=== PATIENT | male | born 1970 | race African-American/Black ===

== ENCOUNTER 2020-09-07 14:00 | Outpatient (RCR) | payer OTHER, SELFPAY ==
--- NOTE | 2020-07-27 08:24 | MHC.PT.EP ---
[facility] [place] Office [place] Office [place] Office [address] Fabiola Winkler [address] [phone] F: [phone] F: [phone] F: [phone] F: [phone] Physical Therapy Plan of Care Date of Evaluation: 07/26/20 Date of Surgery: None Diagnosis: Low back pain Assessment: Patient is a 49 year old R handed male who presents with s/s consistent with low back pain. This has been a chronic issue for him with it worsening from time to time. MRI confirms significant pathology a few years back. He works with daily job demands including. Patient past medical history . Current impairments include pain, ROM, strength, safety, independence, activity tolerance and functional mobility. Functional limitations include decreased ability to walk, stand, transfer, negotiate stairs, and perform weight bearing activities.. Patient is motivated with good rehab potential. Skilled PT will address impairments and functional limitations in order to achieve goals. Frequency and Duration: The patient will be seen 2x/week for 6 weeks Short Term Goals: I with HEP - 2 weeks 90/90 lacking 35 b/l - 3 weeks Improve lumbar rotation with gait, AROM rotation 75% b/l - 3 weeks Group Home Goals: oswestry 20% or less - 5 weeks reduced TTP/tissue tightness in lumbar spine - 4 weeks Able to demo proper squat, light mechanics - 6 weeks Treatment Plan: Modalities to reduce pain, spasms and effusion. Manual therapy to restore motion and function. Therapeutic exercise to improve strength and flexibility. Neuromuscular re-education for posture and balance. Therapeutic activities to return to functional activities of daily living. Electronically signed by: Usama Boland, PT Please sign and return to therapist. Thank you for your referral.
--- NOTE | 2020-10-23 13:29 | MHC.PT.DC ---
[facility] [place] Office [place] Office [place] Office [address] Fabiola Winkler 140 [facility] [phone] F: [phone] F: [phone] F: [phone] F: [phone] Physical Therapy Discharge Report Diagnosis: Low back pain Date of Surgery: None Date of Evaluation: 07/26/20 Date of Discharge: 09/11/20 Treatments to Date: 8 Cancellations to Date: No Shows to Date: Discharge Status: Independent with HEP Discharge Summary: Pt progressed well over the course of skilled PT making progress on impairments and functional limitations resulting in an improved quality of life. Pt is I with HEP and appropriate to d/c to HEP at this time. Electronically signed by: Usama Boland, PT Please sign and return to therapist. Thank you for your referral.
== END 2020-10-23 13:59 | disposition home or self-care (01) ==
LOC: HO.PTCHIC 14:00
PROVIDERS: PCP Nurse Practitioner Family; Visit Provider Nurse Practitioner Family
DX: M54.16 Radiculopathy, lumbar region (principal); G89.29 Other chronic pain
CPT/HCPCS: 97014; 97110; 97112; 97140; 97162

== ENCOUNTER 2020-10-09 16:29 | Outpatient (REF) | payer OTHER, SELFPAY ==
--- NOTE | ~2020-10-09 | MR_ITS ---
EXAMINATION: MR LUMBAR SPINE WITHOUT CONTRAST CLINICAL INFORMATION: Left radiculopathy with bilateral toe numbness. COMPARISON: Lumbar spine x-ray 06/18/2014 TECHNIQUE: MRI of the lumbar spine was obtained using routine sequences without contrast. FINDINGS: VERTEBRAL BODIES AND PARASPINAL STRUCTURES: The marrow signal is homogeneous. No endplate changes seen. The vertebral heights and alignment are normal. Mild disc desiccation changes are seen at the L2-L3, L3-L4 and L4-L5 disc levels. CONUS MEDULLARIS AND CAUDA EQUINA: Conus medullaris terminates at T12 with a tiny fatty filum visualized similar to previous study. SPINAL LEVELS: T12-L1: No evidence of disc bulge, herniation or spinal stenosis. The spinal canal is capacious. L1-L2: Minimal loss of disc height without disc desiccation change seen. The spinal canal is capacious without any underlying disc bulge or herniation. The neural foramina are patent. At L2-L3 disc level, the left paracentral disc protrusion indenting the left ventral thecal sac, similar to previous study. No central canal stenosis seen. The neural foramina are patent bilaterally. At L3-L4 disc level, there is central annular degeneration with central and right paracentral disc protrusion without spinal canal stenosis. The neural foramina are patent bilaterally. At L4-L5 disc level, there is mild disc bulge flattening the ventral thecal sac but without spinal canal stenosis. Previously noted right paracentral disc protrusion has improved. The mass effect on the right L5 nerve root has improved, as well. Moderate bilateral facet joint hypertrophy is noted without neural foraminal narrowing. At L5-S1 disc level, there is no disc bulge, herniation or spinal canal stenosis. There is mild facet joint hypertrophy with mild lateral recess narrowing bilaterally. The neural foramina appear patent. MR/MR lumbar spine wo con IMPRESSION: Left paracentral disc herniation at L2-L3 disc level is stable. Central annular degeneration with central and right paracentral disc protrusion at L3-L4 disc level is visualized again and appears more prominent than the previous study with mild flattening of ventral thecal sac. Right lateral disc protrusion at L4-L5 disc level encroaching the right L5 nerve root shows minimal improvement. Bilateral facet joint hypertrophy L5-S1 disc level with bilateral lateral recess narrowing L5-S1 disc levels, stable.
== END 2020-10-09 16:30 | disposition home or self-care (01) ==
LOC: HO.MRI 16:29
PROVIDERS: Visit Provider Nurse Practitioner Family
DX: M54.16 Radiculopathy, lumbar region (principal); G89.29 Other chronic pain
CPT/HCPCS: 72148

== ENCOUNTER 2020-11-09 13:10 | Outpatient (REF) | payer OTHER, SELFPAY ==
[2020-11-09 14:44] LABS: Alanine Aminotransferase 22 U/L (0-40); Albumin Level 4.1 g/dL (3.5-5.0); Alkaline Phosphatase 44 U/L (39-117); Anion Gap 11 (12-20); Aspartate Amino Transferase 17 U/L (5-37); Bilirubin Total 1.5 mg/dL (0.0-1.0); Blood Urea Nitrogen 14 mg/dL (9-16); C Reactive Protein 0.07 mg/dL (< or = 0.50); Calcium 9.1 mg/dL (8.4-10.2); Carbon Dioxide 32 mmol/L (22-29); Chloride 104 mmol/L (96-108); Cholesterol 139 mg/dL; Estimated Glomerular Filt Rate 53; Glucose Fasting 87 mg/dL (60-99); HDL Cholesterol 31 mg/dL; LDL Cholesterol Calculated 65 mg/dl; Potassium 4.5 mmol/L (3.3-5.1); Sodium 142 mmol/L (135-145); Total Protein 7.2 g/dL (6.5-8.0); Triglycerides 218 mg/dL; Uric Acid 9.5 mg/dL (3.4-7.0)
[2020-11-09 14:55] LABS: Erythrocyte Sedimentation Rate 2 MM/HR (0-15)
[2020-11-09 15:05] LABS: TSH reflex Free T4 1.54 uIU/mL (0.32-4.0)
== END 2020-11-09 13:11 | disposition home or self-care (01) ==
LOC: HO.HMGCLDS 13:10
PROVIDERS: PCP Nurse Practitioner Family; Visit Provider Nurse Practitioner Family
DX: Z00.00 Encounter for general adult medical examination without abnormal findings (principal); M79.89 Other specified soft tissue disorders
CPT/HCPCS: 36415; 80053; 80061; 84443; 84550; 85652; 86140

== ENCOUNTER → 2021-03-30 13:12 | Outpatient (BNVA) | payer OTHER, SELFPAY | PROVIDERS: PCP Nurse Practitioner Family; Visit Provider Urology ==

== ENCOUNTER 2021-05-17 15:13 | Emergency (ER) | payer OTHER, SELFPAY ==
--- NOTE | ~2021-05-17 | XR_ITS ---
EXAMINATION: XR CHEST CLINICAL INFORMATION: Chest pain COMPARISON: None TECHNIQUE: Frontal view of the chest was obtained. FINDINGS: No significant abnormality is noted involving the heart, lungs, mediastinum, bony thorax or soft tissues. XR/XR chest 1V IMPRESSION: Unremarkable examination.
--- NOTE | 2021-05-17 15:18 | ECG_ITS ---
Test Reason : CHEST PAIN Blood Pressure : / mmHG Vent. Rate : 083 BPM Atrial Rate : 083 BPM P-R Int : 142 ms QRS Dur : 078 ms QT Int : 362 ms P-R-T Axes : 053 016 038 degrees QTc Int : 425 ms Normal sinus rhythm Early repolarization Normal ECG No previous ECGs available Referred By: Generic ED Physician Electronically Signed By:CASSIDY DOMINGUEZ MD
[2021-05-17 15:32] LABS: MANUAL DIFF FLAG NO
[2021-05-17 15:35] LABS: Basophils Percent Auto 0.4 % (0-2); Eosinophils Absolute Auto 0.1 X10*3/uL (0.0-0.4); Eosinophils Percent Auto 1.3 % (0-4); Hematocrit 46.7 % (42-52); Imm Gran Abs Auto 0.01 X10*3/uL (0.00-0.03); Imm Gran Pct Auto 0.2 % (0.0-0.4); Lymphocytes Absolute Auto 2.3 X10*3/uL (1.2-4.9); Lymphocytes Percent Auto 49.2 % (20-40); Mean Corpuscular HGB Conc 34.3 g/dl (31.0-36.0); Mean Corpuscular Hemoglobin 32.1 pg (27.0-33.0); Mean Corpuscular Volume 93.6 fL (80-98); Mean Platelet Volume 9.7 fL (9.4-12.4); Monocytes Absolute Auto 0.6 X10*3/uL (0.1-1.2); Monocytes Percent Auto 12.7 % (2-11); Neutrophils Absolute Auto 1.7 X10*3/uL (2.0-8.3); Neutrophils Percent Auto 36.2 % (45-73); Platelet Count 229 X10*3/uL (160-400); Red Blood Count 4.99 X10*6/uL (4.60-5.80); Red Cell Distribution Width 11.4 % (11.0-16.0); White Blood Count 4.7 X10*3/uL (4.8-10.8)
[2021-05-17 15:56] LABS: Alanine Aminotransferase 23 U/L (0-40); Albumin Level 4.3 g/dL (3.5-5.0); Alkaline Phosphatase 42 U/L (39-117); Anion Gap 14 (12-20); Aspartate Amino Transferase 20 U/L (5-37); Bilirubin Total 1.3 mg/dL (0.0-1.0); Blood Urea Nitrogen 18 mg/dL (9-16); Calcium 9.8 mg/dL (8.4-10.2); Carbon Dioxide 26 mmol/L (22-29); Chloride 104 mmol/L (96-108); Estimated Glomerular Filt Rate 53; Glucose Random 83 mg/dL (60-115); Potassium 4.2 mmol/L (3.3-5.1); Sodium 140 mmol/L (135-145); Total Protein 7.5 g/dL (6.5-8.0); Troponin-I High Sensitivity < 3.5 ng/L (<3.5-35.0)
[2021-05-17 16:05] VITALS: BP 134/102; PULSE 80; RESP 18; TEMP 37.1; O2SAT 100; BMI 24.7
[2021-05-17 16:39] LABS: Appearance Urine HAZY; Color Urine YELLOW; Glucose Urine UA NEG (NEG); Leukocyte Esterase Urine NEG (NEG); Nitrite Urine NEG (NEG); Specific Gravity - Urine 1.025 (1.005-1.025); Urine Blood NEG (NEG); Urine Ketones NEG (NEG); Urine Protein NEG (NEG-TRACE)
[2021-05-17 21:04] VITALS: BP 142/100; PULSE 76; RESP 10; O2SAT 98
--- NOTE | 2021-05-17 21:16 | ED.GENADULT ---
HPI - General Adult General Chief complaint: General Medical Stated complaint: cp Time Seen by Provider: 05/17/21 20:50 Related Data Previous Rx's Medication Instructions Recorded tizanidine 4 mg tablet 4 mg PO BEDTIME 30 Days #30 tab 09/13/20 butenafine 1 % topical cream 1 appl TOPICAL BID 30 Days #30 g 10/03/20 (Lotrimin Ultra) famotidine 20 mg tablet 20 mg PO BEDTIME 30 Days #30 tab 11/07/20 colchicine 0.6 mg tablet 0.6 mg PO .COMPLEX 5 Days #15 tab 12/11/20 hydrochlorothiazide 25 mg tablet 25 mg PO DAILY #30 tab 04/03/21 acetaminophen 325 mg capsule 650 mg PO Q4H PRN #30 cap 05/17/21 cyclobenzaprine 10 mg tablet 10 mg PO TID PRN #20 tab 05/17/21 Allergies Allergy/AdvReac Type Severity Reaction Status Date / Time No Known Allergies Allergy Verified 05/17/21 16:05 [No Known Allergies*] [facility] Past Medical History Medical History Chronic radicular pain of lower back Dyslipidemia GERD (gastroesophageal reflux disease) HTN (hypertension) Leukopenia Surgical History H/O left inguinal hernia repair Family History Family History Father No problems noted. Mother No problems noted. Brother No problems noted. Sister No problems noted. Sister No problems noted. Son No problems noted. Daughter No problems noted. Social History Social History Alcohol intake: current Alcohol intake frequency: holidays/special occasions only Use of substances other than those prescribed or required for medical reasons: No Advance Directives: No Physical Exam Vital Signs: Vital Signs: Last Vital Signs Temp 98.7 F 05/17/21 16:05 Pulse 76 05/17/21 21:04 Resp 10 L 05/17/21 21:04 BP 142/100 H 05/17/21 21:04 Pulse Ox 98 05/17/21 21:04 Body Mass Index 24.7 Medical Decision Making Lab Data Result diagrams: 05/17/21 15:25 05/17/21 15:25 Labs: Lab Results 05/17/21 05/17/21 05/17/21 Range/Units 15:25 15:25 15:25 WBC 4.7 L (4.8-10.8) X10*3/uL RBC 4.99 (4.60-5.80) X10*6/uL Hgb 16.0 (14.0-18.0) g/dl Hct 46.7 (42-52) % MCV 93.6 (80-98) fL MCH 32.1 (27.0-33.0) pg MCHC 34.3 (31.0-36.0) g/dl RDW 11.4 (11.0-16.0) % Plt Count 229 (160-400) X10*3/uL MPV 9.7 (9.4-12.4) fL Immature Gran % (Auto) 0.2 (0.0-0.4) % Neut % (Auto) 36.2 L (45-73) % Lymph % (Auto) 49.2 H (20-40) % [place] % (Auto) 12.7 H (2-11) % Eos % (Auto) 1.3 (0-4) % Baso % (Auto) 0.4 (0-2) % Lymph # (Auto) 2.3 (1.2-4.9) X10*3/uL [place] # (Auto) 0.6 (0.1-1.2) X10*3/uL Eos # (Auto) 0.1 (0.0-0.4) X10*3/uL Baso # (Auto) 0.0 (0.0-0.2) X10*3/uL Abs Immat Gran (auto) 0.01 (0.00-0.03) X10*3/uL Absolute Neuts (auto) 1.7 L (2.0-8.3) X10*3/uL Absolute Nucleated RBC 0.000 (0.0-0.012) X10*3/uL Nucleated RBC % (auto) 0.0 (0.0-0.2) /100WBC Sodium 140 (135-145) mmol/L Potassium 4.2 (3.3-5.1) mmol/L Chloride 104 (96-108) mmol/L Carbon Dioxide 26 (22-29) mmol/L Anion Gap 14 (12-20) BUN 18 H (9-16) mg/dL Creatinine 1.41 H (0.5-1.4) mg/dL Estim Creat Clear Calc TNP Estimated GFR 53 Random Glucose 83 (60-115) mg/dL Calcium 9.8 D (8.4-10.2) mg/dL Total Bilirubin 1.3 H (0.0-1.0) mg/dL AST 20 (5-37) U/L ALT 23 (0-40) U/L Alkaline Phosphatase 42 (39-117) U/L Troponin I High Sens < 3.5 (<3.5-35.0) ng/L Total Protein 7.5 (6.5-8.0) g/dL Albumin 4.3 (3.5-5.0) g/dL Urine Color Urine Appearance Urine pH (5.0-8.0) Ur Specific [place] (1.005-1.025) Urine Protein (NEG-TRACE) MG/DL Urine Glucose (UA) (NEG) MG/DL Urine Ketones (NEG) MG/DL Urine Blood (NEG) Urine Nitrite (NEG) Ur Leukocyte Esterase (NEG) 05/17/21 Range/Units 16:28 WBC (4.8-10.8) X10*3/uL RBC (4.60-5.80) X10*6/uL Hgb (14.0-18.0) g/dl Hct (42-52) % MCV (80-98) fL MCH (27.0-33.0) pg MCHC (31.0-36.0) g/dl RDW (11.0-16.0) % Plt Count (160-400) X10*3/uL MPV (9.4-12.4) fL Immature Gran % (Auto) (0.0-0.4) % Neut % (Auto) (45-73) % Lymph % (Auto) (20-40) % [place] % (Auto) (2-11) % Eos % (Auto) (0-4) % Baso % (Auto) (0-2) % Lymph # (Auto) (1.2-4.9) X10*3/uL [place] # (Auto) (0.1-1.2) X10*3/uL Eos # (Auto) (0.0-0.4) X10*3/uL Baso # (Auto) (0.0-0.2) X10*3/uL Abs Immat Gran (auto) (0.00-0.03) X10*3/uL Absolute Neuts (auto) (2.0-8.3) X10*3/uL Absolute Nucleated RBC (0.0-0.012) X10*3/uL Nucleated RBC % (auto) (0.0-0.2) /100WBC Sodium (135-145) mmol/L Potassium (3.3-5.1) mmol/L Chloride (96-108) mmol/L Carbon Dioxide (22-29) mmol/L Anion Gap (12-20) BUN (9-16) mg/dL Creatinine (0.5-1.4) mg/dL Estim Creat Clear Calc Estimated GFR Random Glucose (60-115) mg/dL Calcium (8.4-10.2) mg/dL Total Bilirubin (0.0-1.0) mg/dL AST (5-37) U/L ALT (0-40) U/L Alkaline Phosphatase (39-117) U/L Troponin I High Sens (<3.5-35.0) ng/L Total Protein (6.5-8.0) g/dL Albumin (3.5-5.0) g/dL Urine Color YELLOW Urine Appearance HAZY Urine pH 6.0 (5.0-8.0) Ur Specific [place] 1.025 (1.005-1.025) Urine Protein NEG (NEG-TRACE) MG/DL Urine Glucose (UA) NEG (NEG) MG/DL Urine Ketones NEG (NEG) MG/DL Urine Blood NEG (NEG) Urine Nitrite NEG (NEG) Ur Leukocyte Esterase NEG (NEG) Discharge Plan Discharge Clinical Impression: Acute chest wall pain Patient Disposition: Home, Self-Care Instructions: Chest Wall Pain (ED) Additional Instructions: Use Tylenol and Flexeril as prescribed for pain. Follow-up with primary care physician. Return for any new or worsening symptoms. Your EKG and heart enzyme, and chest x-ray and other labs were normal. You likely have muscle strain secondary to the stretching exercises you were doing. Prescriptions: New cyclobenzaprine 10 mg tablet 10 mg PO TID PRN (Reason: muscle spasm) Qty: 20 RF: 0 acetaminophen 325 mg capsule 650 mg PO Q4H PRN (Reason: pain) Qty: 30 RF: 0 No Action tizanidine 4 mg tablet 4 mg PO BEDTIME 30 Days Qty: 30 RF: 2 colchicine 0.6 mg tablet 0.6 mg PO .COMPLEX 5 Days Qty: 15 RF: 0 hydrochlorothiazide 25 mg tablet 25 mg PO DAILY Qty: 30 RF: 2 famotidine 20 mg tablet 20 mg PO BEDTIME 30 Days Qty: 30 RF: 4 butenafine [Lotrimin Ultra] 1 % cream 1 appl topical BID 30 Days Qty: 30 RF: 3
--- NOTE | 2021-05-17 21:19 | ED_ITS ---
HPI - General Adult General Chief complaint: General Medical Stated complaint: cp Time Seen by Provider: 05/17/21 20:50 Source: patient Limitations: no limitations History of Present Illness HPI narrative: This is a 50-year-old male who complains of pain in his chest for a few days. The pain was initially bilateral but now is more on the right side, worsened with taking a deep breath. The patient denies being short of breath. Denies any dizziness. Denies any nausea or sweats. He denies any cough. He has had minor rhinorrhea, does not feel like he has a cold. Denies any sore throat. Patient notes he was doing some stretching exercises prior to the onset of the pain, the day before, where he was lifting his straight legs up straight up over his chest. He denies any pain or swelling in his legs. He denies any recent long travel. He has not used tobacco. He does have history of hypertension, denies diabetes or elevated cholesterol. Related Data Previous Rx's Medication Instructions Recorded tizanidine 4 mg tablet 4 mg PO BEDTIME 30 Days #30 tab 09/13/20 butenafine 1 % topical cream 1 appl TOPICAL BID 30 Days #30 g 10/03/20 (Lotrimin Ultra) famotidine 20 mg tablet 20 mg PO BEDTIME 30 Days #30 tab 11/07/20 colchicine 0.6 mg tablet 0.6 mg PO .COMPLEX 5 Days #15 tab 12/11/20 hydrochlorothiazide 25 mg tablet 25 mg PO DAILY #30 tab 04/03/21 acetaminophen 325 mg capsule 650 mg PO Q4H PRN #30 cap 05/17/21 cyclobenzaprine 10 mg tablet 10 mg PO TID PRN #20 tab 05/17/21 Allergies Allergy/AdvReac Type Severity Reaction Status Date / Time No Known Allergies Allergy Verified 05/17/21 16:05 [No Known Allergies*] Review of Systems Review of Systems: Yes all other systems are reviewed and are negative Constitutional: Constitutional: Reports as per HPI and Denies fever(s) Eyes: Eyes: Reports as per HPI and Reports no additional eye complaints ENT: Reports system reviewed and no additional complaints, except as documented, Reports as per HPI, Denies nasal congestion, Denies nasal discharge and Denies sore throat Cardiovascular: Cardiovascular: Reports as per HPI, Reports chest pain and Denies dyspnea Respiratory: Respiratory: Reports as per HPI, Denies cough and Denies dyspnea Gastrointestinal: Gastrointestinal: Reports as per HPI, Denies abdominal pain, Denies diarrhea and Denies vomiting Genitourinary: Genitourinary: Reports as per HPI, Denies hematuria, Denies dysuria and Denies urinary frequency Musculoskeletal: Musculoskeletal: Reports no additional musculoskeletal complaints and Denies numbness Integumentary/Breasts: Skin/Breast: Reports as per HPI and Denies rash Neurologic: Reports as per HPI, Denies focal weakness, Denies numbness and Denies Sensory deficit (Neuro) Psychiatric: Psychiatric: Reports no additional psychiatric complaints and Reports as per HPI Endocrine: Endocrine: Reports no additional endocrine complaints and Reports as per HPI Hematologic/Lymphatic: Hematologic/Lymphatic: Reports no additional hematologic/lymphatic complaints, Reports as per HPI and Reports other (No peripheral edema) [facility] Past Medical History Medical History Chronic radicular pain of lower back Dyslipidemia GERD (gastroesophageal reflux disease) HTN (hypertension) Leukopenia Surgical History H/O left inguinal hernia repair Family History Family History Father No problems noted. Mother No problems noted. Brother No problems noted. Sister No problems noted. Sister No problems noted. Son No problems noted. Daughter No problems noted. Social History Social History Alcohol intake: current Alcohol intake frequency: holidays/special occasions only Use of substances other than those prescribed or required for medical reasons: No Advance Directives: No Physical Exam Vital Signs: Vital Signs: Last Vital Signs Temp 98.7 F 05/17/21 16:05 Pulse 76 05/17/21 21:04 Resp 10 L 05/17/21 21:04 BP 142/100 H 05/17/21 21:04 Pulse Ox 98 05/17/21 21:04 Body Mass Index 24.7 Const: General: cooperative, no acute distress and alert Orientation/consciousness: patient oriented x3 HENMT: Head: Yes normal to inspection Eyes: General: appearance normal, both eyes and all related structures Eyelids: Yes eyelids normal Conjunctivae: conjunctivae normal Pupils: Equal, round and reactive pupils present Neck: Neck: Yes normal visual inspection and Yes supple Chest: Chest palpation & inspection: normal inspection of the chest and tenderness (Right anterior mid chest tender to palpation, reproduces patient's pain) Resp: Effort & Inspection: normal respiratory effort Auscultation: clear to auscultation bilaterally Cardio: Rate: regular rate Rhythm: regular rhythm Heart sounds: S1 normal heart sound present, S2 normal heart sound present, no gallops, no murmurs and no rubs GI: Palpation (GI): Soft to palpation, nontender and Other GI palpation findings present (Non-distended) Auscultation: normal bowel sounds Skin: General skin exam: no rashes or lesions noted Neuro: General: patient oriented x3, no focal motor deficits and CN's II-XI intact bilaterally Cranial nerves: Yes Equal, round and reactive pupils present Cognition (Neuro): normal cognition Motor exam (neuro): 5/5 motor strength present throughout Sensory Exam: No Sensory deficit (Neuro) Extrem: General: Yes normal to inspection and Yes no pedal edema Psych: Appearance: grossly normal Affect: normal affect Medical Decision Making MDM Narrative Medical decision making narrative: Patient with right-sided chest wall pain and tenderness, came on after he had been doing some stretches with his legs raised up above his chest the day before the pain started. Chest x-ray, EKG, troponin all unremarkable. Patient does have slightly increased creatinine, which she has had previously. Given the overall clinical picture, this appears to be chest wall pain, muscular in etiology. No clinical suspicion for acute coronary syndrome. Lab Data Lab results reviewed: Yes I reviewed the patient's lab results. Result diagrams: 05/17/21 15:25 05/17/21 15:25 Labs: Lab Results 05/17/21 05/17/21 05/17/21 Range/Units 15:25 15:25 15:25 WBC 4.7 L (4.8-10.8) X10*3/uL RBC 4.99 (4.60-5.80) X10*6/uL Hgb 16.0 (14.0-18.0) g/dl Hct 46.7 (42-52) % MCV 93.6 (80-98) fL MCH 32.1 (27.0-33.0) pg MCHC 34.3 (31.0-36.0) g/dl RDW 11.4 (11.0-16.0) % Plt Count 229 (160-400) X10*3/uL MPV 9.7 (9.4-12.4) fL Immature Gran % (Auto) 0.2 (0.0-0.4) % Neut % (Auto) 36.2 L (45-73) % Lymph % (Auto) 49.2 H (20-40) % [place] % (Auto) 12.7 H (2-11) % Eos % (Auto) 1.3 (0-4) % Baso % (Auto) 0.4 (0-2) % Lymph # (Auto) 2.3 (1.2-4.9) X10*3/uL [place] # (Auto) 0.6 (0.1-1.2) X10*3/uL Eos # (Auto) 0.1 (0.0-0.4) X10*3/uL Baso # (Auto) 0.0 (0.0-0.2) X10*3/uL Abs Immat Gran (auto) 0.01 (0.00-0.03) X10*3/uL Absolute Neuts (auto) 1.7 L (2.0-8.3) X10*3/uL Absolute Nucleated RBC 0.000 (0.0-0.012) X10*3/uL Nucleated RBC % (auto) 0.0 (0.0-0.2) /100WBC Sodium 140 (135-145) mmol/L Potassium 4.2 (3.3-5.1) mmol/L Chloride 104 (96-108) mmol/L Carbon Dioxide 26 (22-29) mmol/L Anion Gap 14 (12-20) BUN 18 H (9-16) mg/dL Creatinine 1.41 H (0.5-1.4) mg/dL Estim Creat Clear Calc TNP Estimated GFR 53 Random Glucose 83 (60-115) mg/dL Calcium 9.8 D (8.4-10.2) mg/dL Total Bilirubin 1.3 H (0.0-1.0) mg/dL AST 20 (5-37) U/L ALT 23 (0-40) U/L Alkaline Phosphatase 42 (39-117) U/L Troponin I High Sens < 3.5 (<3.5-35.0) ng/L Total Protein 7.5 (6.5-8.0) g/dL Albumin 4.3 (3.5-5.0) g/dL Urine Color Urine Appearance Urine pH (5.0-8.0) Ur Specific [place] (1.005-1.025) Urine Protein (NEG-TRACE) MG/DL Urine Glucose (UA) (NEG) MG/DL Urine Ketones (NEG) MG/DL Urine Blood (NEG) Urine Nitrite (NEG) Ur Leukocyte Esterase (NEG) 05/17/21 Range/Units 16:28 WBC (4.8-10.8) X10*3/uL RBC (4.60-5.80) X10*6/uL Hgb (14.0-18.0) g/dl Hct (42-52) % MCV (80-98) fL MCH (27.0-33.0) pg MCHC (31.0-36.0) g/dl RDW (11.0-16.0) % Plt Count (160-400) X10*3/uL MPV (9.4-12.4) fL Immature Gran % (Auto) (0.0-0.4) % Neut % (Auto) (45-73) % Lymph % (Auto) (20-40) % [place] % (Auto) (2-11) % Eos % (Auto) (0-4) % Baso % (Auto) (0-2) % Lymph # (Auto) (1.2-4.9) X10*3/uL [place] # (Auto) (0.1-1.2) X10*3/uL Eos # (Auto) (0.0-0.4) X10*3/uL Baso # (Auto) (0.0-0.2) X10*3/uL Abs Immat Gran (auto) (0.00-0.03) X10*3/uL Absolute Neuts (auto) (2.0-8.3) X10*3/uL Absolute Nucleated RBC (0.0-0.012) X10*3/uL Nucleated RBC % (auto) (0.0-0.2) /100WBC Sodium (135-145) mmol/L Potassium (3.3-5.1) mmol/L Chloride (96-108) mmol/L Carbon Dioxide (22-29) mmol/L Anion Gap (12-20) BUN (9-16) mg/dL Creatinine (0.5-1.4) mg/dL Estim Creat Clear Calc Estimated GFR Random Glucose (60-115) mg/dL Calcium (8.4-10.2) mg/dL Total Bilirubin (0.0-1.0) mg/dL AST (5-37) U/L ALT (0-40) U/L Alkaline Phosphatase (39-117) U/L Troponin I High Sens (<3.5-35.0) ng/L Total Protein (6.5-8.0) g/dL Albumin (3.5-5.0) g/dL Urine Color YELLOW Urine Appearance HAZY Urine pH 6.0 (5.0-8.0) Ur Specific [place] 1.025 (1.005-1.025) Urine Protein NEG (NEG-TRACE) MG/DL Urine Glucose (UA) NEG (NEG) MG/DL Urine Ketones NEG (NEG) MG/DL Urine Blood NEG (NEG) Urine Nitrite NEG (NEG) Ur Leukocyte Esterase NEG (NEG) Imaging Data Chest x-ray: Radiologist's impression: No acute pathology ECG Data Attestation: I personally reviewed and interpreted this ECG as follows: Interpretation: Sinus rhythm with a rate of 83. Early repolarization pattern. No concerning ST elevation or depression. Normal QRS axis. Discharge Plan Discharge Clinical Impression: Acute chest wall pain Patient Disposition: Home, Self-Care Instructions: Chest Wall Pain (ED) Additional Instructions: Use Tylenol and Flexeril as prescribed for pain. Follow-up with primary care physician. Return for any new or worsening symptoms. Your EKG and heart enzyme, and chest x-ray and other labs were normal. You likely have muscle strain secondary to the stretching exercises you were doing. Prescriptions: New cyclobenzaprine 10 mg tablet 10 mg PO TID PRN (Reason: muscle spasm) Qty: 20 RF: 0 acetaminophen 325 mg capsule 650 mg PO Q4H PRN (Reason: pain) Qty: 30 RF: 0 No Action tizanidine 4 mg tablet 4 mg PO BEDTIME 30 Days Qty: 30 RF: 2 colchicine 0.6 mg tablet 0.6 mg PO .COMPLEX 5 Days Qty: 15 RF: 0 hydrochlorothiazide 25 mg tablet 25 mg PO DAILY Qty: 30 RF: 2 famotidine 20 mg tablet 20 mg PO BEDTIME 30 Days Qty: 30 RF: 4 butenafine [Lotrimin Ultra] 1 % cream 1 appl topical BID 30 Days Qty: 30 RF: 3
[2021-05-17] MEDS: Ketorolac Tromethamine 15 MG/ML VIAL 30 MG IM (22:00)
[2021-05-18 02:11] LABS: CT PCR NOT DETECTED (Not Detect.); NG PCR NOT DETECTED (Not Detect.)
== END 2021-05-17 22:06 | disposition home or self-care (01) ==
PROVIDERS: Emergency Provider Emergency Medicine; PCP Nurse Practitioner Family
DX: R07.89 Other chest pain (principal); I10 Essential (primary) hypertension
CPT/HCPCS: 36415; 71045; 80053; 81003; 84484; 85025; 87491; 87591; 93005; 96372; 99284; J1885

== ENCOUNTER → 2021-05-23 08:21 | Outpatient (BNVA) | payer OTHER, SELFPAY | PROVIDERS: PCP Nurse Practitioner Family; Visit Provider Urology ==

== ENCOUNTER → 2021-07-27 13:18 | Outpatient (BNVA) | payer OTHER, SELFPAY | PROVIDERS: Visit Provider Urology ==

== ENCOUNTER → 2021-09-07 09:55 | Outpatient (BNVA) | payer OTHER, SELFPAY | PROVIDERS: PCP Nurse Practitioner Family; Visit Provider Urology ==

== ENCOUNTER 2021-12-04 14:00 | Outpatient (REF) | payer OTHER, SELFPAY ==
[2021-12-04 16:52] LABS: MANUAL DIFF FLAG NO
[2021-12-04 17:06] LABS: Basophils Percent Auto 0.5 % (0-2); Eosinophils Absolute Auto 0.1 X10*3/uL (0.0-0.4); Eosinophils Percent Auto 1.5 % (0-4); Hematocrit 46.2 % (42.0-52.0); Hemoglobin 15.3 g/dl (14.0-18.0); Imm Gran Abs Auto 0.01 X10*3/uL (0.00-0.03); Imm Gran Pct Auto 0.2 % (0.0-0.4); Lymphocytes Absolute Auto 2.1 X10*3/uL (1.2-4.9); Lymphocytes Percent Auto 51.1 % (20-40); Mean Corpuscular HGB Conc 33.1 g/dl (31.0-36.0); Mean Corpuscular Hemoglobin 31.1 pg (27.0-33.0); Mean Corpuscular Volume 93.9 fL (80.0-98.0); Mean Platelet Volume 10.1 fL (9.4-12.4); Monocytes Absolute Auto 0.5 X10*3/uL (0.1-1.2); Monocytes Percent Auto 12.6 % (2-11); Neutrophils Absolute Auto 1.4 x10*3/uL (2.0-8.3); Neutrophils Percent Auto 34.1 % (45-73); Platelet Count 237 X10*3/uL (160-400); Red Blood Count 4.92 X10*6/uL (4.60-5.80); Red Cell Distribution Width 11.6 % (11.0-16.0); White Blood Count 4.1 X10*3/uL (4.8-10.8)
[2021-12-04 17:09] LABS: Alanine Aminotransferase 25 U/L (0-40); Albumin Level 4.1 g/dL (3.5-5.0); Alkaline Phosphatase 43 U/L (39-117); Anion Gap 11 (12-20); Aspartate Amino Transferase 17 U/L (5-37); Bilirubin Total 1.7 mg/dL (0.0-1.0); Blood Urea Nitrogen 16 mg/dL (9-16); Calcium 9.7 mg/dL (8.4-10.2); Carbon Dioxide 29 mmol/L (22-29); Chloride 106 mmol/L (96-108); Cholesterol 165 mg/dL; Estimated Glomerular Filt Rate 48; Glucose Fasting 98 mg/dL (60-99); HDL Cholesterol 28 mg/dL; LDL Cholesterol Calculated 102 mg/dl; Potassium 4.1 mmol/L (3.3-5.1); Sodium 142 mmol/L (135-145); Total Protein 7.2 g/dL (6.5-8.0); Triglycerides 175 mg/dL
[2021-12-04 17:29] LABS: TSH reflex Free T4 0.99 uIU/mL (0.32-4.0)
[2021-12-04 17:52] LABS: Appearance Urine TURBID; Color Urine YELLOW; Glucose Urine UA NEG (NEG); Leukocyte Esterase Urine NEG (NEG); Nitrite Urine NEG (NEG); PH 5.5 (5.0-8.0); Specific Gravity - Urine 1.025 (1.005-1.025); Urine Blood NEG (NEG); Urine Ketones NEG (NEG); Urine Protein TRACE MG/DL (NEG-TRACE)
== END 2021-12-04 14:01 | disposition home or self-care (01) ==
LOC: HO.HMGCLDS 14:00
PROVIDERS: Visit Provider Nurse Practitioner Family
DX: Z00.00 Encounter for general adult medical examination without abnormal findings (principal); E78.1 Pure hyperglyceridemia
CPT/HCPCS: 36415; 80053; 80061; 81003; 84443; 85025

== ENCOUNTER 2022-01-29 14:00 | Outpatient (RCR) | payer OTHER, SELFPAY ==
--- NOTE | 2021-12-04 13:57 | MHC.PT.EP ---
[facility] [place] [facility] [place] [facility] [place] [facility] [address] Sherrie W[address] [phone] F: [phone] F: [phone] F: [phone] F: [phone] Physical Therapy Plan of Care Date of Evaluation: Date of Surgery: Diagnosis: This is a 51 yo male presenting to skilled PT with a script for low back pain Assessment: This is a 51 yo male presenting to skilled PT with a script for low back pain. Pain has been ongoing for many years without injury. He reports that he has been here a few times for the same issues and it was helpful. Denies pain at rest. Pain is located across the low back and into the buttocks. Pain is described as just pain. Patient reports that he needs to loosen up back back and stretch. When I have an episodes happen I get radiating symptoms. He is unable to quantify how many episodes he gets per month etc. Assessment reveals pain that ranges up to a 7/10. He demos decreased hip and lumbar ROM, decreased hip, back and core strength, impaired gait pattern with compensatory movements due to pain and height and impaired lumbar joint mobility with pain during mobilization. He is a good candidate for skilled PT 2x/wk for 6wks. Frequency and Duration: The patient will be seen 2x/wk for 6wks Short Term Goals: I in HEP Demo proper core stab without cues with ther-ex supine, standing and dynamic work Demo proper hip hinge without pain or cues Apprentice Cook Goals: Demos functional ROM and strength Improve oswestry by at least 10 points Improve pain at the worst to no more than 2/10 Demo proper lifting techniques without increase in pain or radiating symptoms Treatment Plan: Modalities to reduce pain, spasms and effusion. Manual therapy to restore motion and function. Therapeutic exercise to improve strength and flexibility. Neuromuscular re-education for posture and balance. Therapeutic activities to return to functional activities of daily living. Electronically signed by: Sabra Roa PT Please sign and return to therapist. Thank you for your referral.
--- NOTE | 2022-03-04 14:09 | MHC.PT.DC ---
[facility] [place] [facility] [place] [facility] [place] [facility] [address] Fabiola Winkler [address] [phone] F: [phone] F: [phone] F: [phone] F: [phone] Physical Therapy Discharge Report Diagnosis: This is a 51 yo male presenting to skilled PT with a script for low back pain Date of Surgery: Date of Evaluation: 12/04/21 Date of Discharge: 03/04/22 Treatments to Date: 9 Cancellations to Date: 0 No Shows to Date: 0 Discharge Status: Patient Elected to Stop Discharge Summary: Patient was progressing with therapy but called to cancel due to illness and also had a set back. When we called patient to schedule more appointments he did return our messages. I kept his chart open for 30 days and then DC'd. He ahs a thorough HEP to continue on his own. Electronically signed by: Sabra Roa PT Please sign and return to therapist. Thank you for your referral.
== END 2022-03-04 14:10 | disposition home or self-care (01) ==
LOC: HO.PTCHIC 14:00
PROVIDERS: PCP Nurse Practitioner Family; Visit Provider Nurse Practitioner Family
DX: M54.16 Radiculopathy, lumbar region (principal)
CPT/HCPCS: 97014; 97110; 97112; 97140; 97162

== ENCOUNTER 2022-02-27 | Outpatient (REF) | payer OTHER, SELFPAY ==
[2022-03-01 15:50] LABS: H Pylori Breath Test Negative (Negative)
== END 2022-02-27 00:01 | disposition home or self-care (01) ==
LOC: HO.LNP
PROVIDERS: Visit Provider Nurse Practitioner Family
DX: Z01.818 Encounter for other preprocedural examination (principal); Z11.0 Encounter for screening for intestinal infectious diseases; K21.9 Gastro-esophageal reflux disease without esophagitis
CPT/HCPCS: 83013; 99202; 99212

== ENCOUNTER 2022-02-28 14:35 | Outpatient (REF) | payer OTHER, SELFPAY ==
[2022-02-28 16:12] LABS: MANUAL DIFF FLAG NO
[2022-02-28 16:17] LABS: Basophils Percent Auto 0.4 % (0-2); Eosinophils Absolute Auto 0.1 X10*3/uL (0.0-0.4); Eosinophils Percent Auto 1.6 % (0-4); Hematocrit 44.2 % (42.0-52.0); Hemoglobin 14.7 g/dl (14.0-18.0); Imm Gran Abs Auto 0.01 X10*3/uL (0.00-0.03); Imm Gran Pct Auto 0.2 % (0.0-0.4); Lymphocytes Absolute Auto 2.7 X10*3/uL (1.2-4.9); Lymphocytes Percent Auto 55.3 % (20-40); Mean Corpuscular HGB Conc 33.3 g/dl (31.0-36.0); Mean Corpuscular Hemoglobin 31.1 pg (27.0-33.0); Mean Corpuscular Volume 93.6 fL (80.0-98.0); Mean Platelet Volume 10.3 fL (9.4-12.4); Monocytes Absolute Auto 0.6 X10*3/uL (0.1-1.2); Monocytes Percent Auto 11.4 % (2-11); Neutrophils Absolute Auto 1.5 x10*3/uL (2.0-8.3); Neutrophils Percent Auto 31.1 % (45-73); Platelet Count 202 X10*3/uL (160-400); Red Blood Count 4.72 X10*6/uL (4.60-5.80); Red Cell Distribution Width 11.6 % (11.0-16.0); White Blood Count 4.9 X10*3/uL (4.8-10.8)
[2022-02-28 16:28] LABS: Alanine Aminotransferase 22 U/L (0-40); Albumin Level 3.9 g/dL (3.5-5.0); Alkaline Phosphatase 42 U/L (39-117); Anion Gap 10 (12-20); Aspartate Amino Transferase 19 U/L (5-37); Bilirubin Total 1.5 mg/dL (0.0-1.0); Blood Urea Nitrogen 16 mg/dL (9-16); Calcium 9.1 mg/dL (8.4-10.2); Carbon Dioxide 28 mmol/L (22-29); Chloride 106 mmol/L (96-108); Estimated Glomerular Filt Rate 55; Glucose Random 95 mg/dL (60-115); Potassium 4.3 mmol/L (3.3-5.1); Sodium 140 mmol/L (135-145); Total Protein 6.8 g/dL (6.5-8.0)
[2022-02-28 16:48] LABS: Prostate Specific Antigen 0.47 ng/mL (<0.05-4.0)
== END 2022-02-28 14:36 | disposition home or self-care (01) ==
LOC: HO.HMGCLDS 14:35
PROVIDERS: Absent Provider Urology; PCP Nurse Practitioner Family; Visit Provider Nurse Practitioner Family
DX: Z12.5 Encounter for screening for malignant neoplasm of prostate (principal); N13.8 Other obstructive and reflux uropathy; N40.1 Benign prostatic hyperplasia with lower urinary tract symptoms; R35.1 Nocturia; R79.89 Other specified abnormal findings of blood chemistry
CPT/HCPCS: 36415; 80053; 84153; 85025

== ENCOUNTER 2022-06-26 12:04 | Day surgery (SDC) | payer OTHER, SELFPAY ==
--- NOTE | 2022-06-25 08:07 | HO.ANESPROP2 ---
Documented by User: Ingris Jimenez NP 06/25/22 08:08 HPI - Anesthesia Eval Consult details Narrative: 51yo M for Upper Endoscopy and Colonoscopy [facility] Active Problems Active Problems: All Active Problems (Updated 12/18/21 @ 15:38 by Saman Jimenez MD) Nerve root compression (Acute) Physical exam (Acute) Swelling of right foot (Acute) High triglycerides (Acute) Penile lesion (Acute) Genital warts (Acute) Microscopic hematuria (Acute) Nocturia more than twice per night (Acute) Chest pain (Acute) Abdominal pain (Acute) Pleurisy (Acute) Urinary urgency (Acute) Screening for colon cancer (Acute) Physical exam (Acute) Abnormal CBC (Acute) Elevated serum creatinine (Acute) Acute sinusitis (Acute) Chronic radicular pain of lower back (Acute) Past Medical History Medical History Chronic radicular pain of lower back Dyslipidemia GERD (gastroesophageal reflux disease) HTN (hypertension) Leukopenia Family History Family History Father No problems noted. Mother No problems noted. Brother No problems noted. Sister No problems noted. Sister No problems noted. Son No problems noted. Daughter No problems noted. Surgical History Surgical History H/O left inguinal hernia repair Social History Social History Housing: House Alcohol intake: current Alcohol intake frequency: holidays/special occasions only Patient Tobacco Use Status: Never used Tobacco e-Cigarette/Vaping Use: Never Used Second Hand Smoke Exposure: No Use of substances other than those prescribed or required for medical reasons: No Are you DNR?: No Advance Directives: No Advance Directives Information Provided: Yes service: No Current occupational status: employed Current occupation: [employer] Current occupational exposures/hazards: No Cognitive needs: No Hearing needs: No Vision needs: No Meds Allergies Allergy/AdvReac Type Severity Reaction Status Date / Time No Known Allergies Allergy Verified 06/26/22 14:12 [No Known Allergies*] Exam Exam Date and Time: June 25, 2022 0807 Pertinent Lab Results Pertinent Lab Results: Laboratory Tests 02/28/22 02/28/22 14:45 14:45 WBC 4.9 Hgb 14.7 Hct 44.2 Plt Count 202 Sodium 140 Potassium 4.3 Chloride 106 Carbon Dioxide 28 BUN 16 Creatinine 1.35 Assessment and Plan Assessment Anesthesia Assessment: Chart Reviewed Documented by User: Deisi Angulo MD 06/26/22 15:05 PMFSH Past Medical History Medical History Chronic radicular pain of lower back Dyslipidemia GERD (gastroesophageal reflux disease) HTN (hypertension) Leukopenia Family History Family History Father No problems noted. Mother No problems noted. Brother No problems noted. Sister No problems noted. Sister No problems noted. Son No problems noted. Daughter No problems noted. Surgical History Surgical History H/O left inguinal hernia repair History of Problems with Anesthesia: No Social History Social History Housing: House Alcohol intake: current Alcohol intake frequency: holidays/special occasions only Patient Tobacco Use Status: Never used Tobacco e-Cigarette/Vaping Use: Never Used Second Hand Smoke Exposure: No Use of substances other than those prescribed or required for medical reasons: No Are you DNR?: No Advance Directives: No Advance Directives Information Provided: Yes service: No Current occupational status: employed Current occupation: [employer] Current occupational exposures/hazards: No Cognitive needs: No Hearing needs: No Vision needs: No Meds Allergies Allergy/AdvReac Type Severity Reaction Status Date / Time No Known Allergies Allergy Verified 06/26/22 14:12 [No Known Allergies*] Exam Airway Mallampati Class: III TM Dist: >3cm Neck ROM: Full Loose/Missing/Broken Teeth: No Heart: RRR Lungs: CTA Assessment and Plan Assessment Anesthesia Assessment: Anesthesia Plan Discussed Final Anesthetic Review History of Problems with Anesthesia: No NPO: Yes ASA Class: II Final Preanesthetic Review: Meds/Allgs Chart Reviewed, Consent Obtained/Reviewed and Anes Risks/Benef Reviewed Patient Risk: Low Procedure Risk: Intermediate Anesthetic Plan Anesthetic Plan: MAC: Disposition: Standard PACU
[2022-06-26 14:19] VITALS: BP 136/91; PULSE 73; RESP 16; TEMP 36.4; O2SAT 100; BMI 24.6
[2022-06-26] MEDS: Lactated Ringers 1,000 ML 100 ML IVCONT (14:32)
--- NOTE | 2022-06-26 14:50 | P.OP_ITS ---
Operative Note Operative Note Date of Service: 06/26/22 Narrative: Operative Information Procedure Description: EGD, Colonoscopy Indication: GERD, screening Anesthesia: MAC FLEXIBLE TRANSORAL UPPER GASTROINTESTINAL ENDOSCOPY AND COLONOSCOPY PROCEDURE NOTE UPPER ENDOSCOPY Consent: Indications for the procedure and potential complications of bleeding, perforation, reaction to medications and missed diagnosis were discussed with the patient and informed consent was obtained. Instrument: Olympus GIF H 190 J mid size upper endoscope Monitoring: Vital signs and clinical assessment, continuous EKG monitoring, Pulse oximetry, Carbon Dioxide monitoring and blood pressure monitoring were done throughout the procedure. Procedure: The patient was placed in the left lateral decubitis position and pre-procedure medications were administered and a bite block was placed. The endoscope was inserted into the mouth and advanced under direct vision to the third part of duodenum. A careful inspection was made as the upper endoscope was withdrawn including a retroflexed examination of the proximal stomach; Findings and interventions are described below. Findings: Larynx:normal Esophagus: GE junction at 37 cm, diaphragm hiatus at 44 cm, consistent with 7 cm hiatal hernia (fixed), LA grade C erosive esophagitis with bogginess and streaks. schatzki ring noted. Stomach: streaky erythematous mucosa in antrum. Biopsies were obtained. Grade 2 flap valve on retroflexed examination of the cardia. Duodenum: Normal bulb and descending duodenum, Intervention: Biopsies as noted above COLONOSCOPY Instrument: Olympus variable stiffness ADULT scope 190L Colonoscopy Monitoring: Vital signs and clinical assessment, continuous EKG monitoring, Pulse oximetry, Carbon Dioxide monitoring and blood pressure monitoring were done throughout the procedure. Colon withdrawal time was 9 minutes. Procedure: The patient was placed in the left lateral decubitis position and pre-procedure medications were administered. After a digital rectal examination of the ano-rectum, the video colonoscope was inserted into the rectum and advanced through the colon to the cecum/TI. The colonoscope was slowly withdrawn in a retrograde panoramic fashion and the colon mucosa was carefully examined including a retroflexed view of the rectum. Findings and interventions are described below. Procedure Difficulty: easy Findings: Terminal Ileum-normal Cecum:normal Ascending Colon: normal Transverse Colon -normal Descending Colon: 5-7 mm sessile polyp removed with cold forceps Sigmoid Colon: mild diverticulosis Rectum: Retroflexion with small internal hemorrhoids, grade I Anorectum - normal Colon preparation: [place] Bowel Preparation Scale Right colon; 3 Transverse colon: 3 Left colon; 3 (0 = Unprepared colon segment with mucosa not seen due to solid stool that cannot be cleared. 1 = Portion of mucosa of the colon segment seen, but other areas of the colon segment not well seen due to staining, residual stool and/or opaque liquid. 2 = Minor amount of residual staining, small fragments of stool and/or opaque liquid, but mucosa of colon segment seen well. 3 = Entire mucosa of colon segment seen well with no residual staining, small fragments of stool or opaque liquid) Impression and Post Procedure Diagnosis: Endoscopy Findings: schatzki ring hiatal hernia, large erosive esophagitis gastritis Colonoscopy Findings: polyp internal hemorrhoids diverticular disease Plan: Await Pathology results Repeat Colonoscopy in 5 years if adenomatous polyp, 10 yrs if hyperplastic or earlier if clinically indicated High fiber diet leaflet avoid straining at stool, epsom salts and sitz bath, anusol supps or cream consider referral to surgery for hiatal hernia repair and possible fundoplication -would increase PPI to BId dosing meantime Above findings were reviewed with the patient and relevant handouts were provided if indicated.
--- NOTE | 2022-06-26 14:50 | MHC.SHP ---
Pre-Procedural Eval Section A Date of Service: 06/26/22 Section B Chief Complaint: screening,reflux Relevant Family History (Specify if Yes): No Relevant Social History: None Present Medications: see Short Stay Collaborative assessment Medical History: Significant History (Chronic radicular pain of lower back Dyslipidemia GERD (gastroesophageal reflux disease) HTN (hypertension) Leukopenia) History of Previous Operations: Relevant previous surgery/procedure and date(s) (inguinal hernia repair ) Allergies: Allergies Allergy/AdvReac Type Severity Reaction Status Date / Time No Known Allergies Allergy Verified 06/26/22 14:12 [No Known Allergies*] Review of Systems Sugical H&P ROS: Negative: Constitution, Cardiovascular, Respiratory, Neurological, Psychiatric, Hem-Onc, Allergic/Immunologic, Gastrointestinal, Genitourinary, Musculoskeletal, Integumentary, Endocrine and Eyes/Ears/Nose/Throat Exam Surgical H&P Exam: Normal: HEENT, Normal: Heart, Normal: Lungs, Normal: Extremities, Normal: Abdomen, Normal: Skin and Normal: Neurological Plan Diagnosis/Plan: Unchanged I have reviewed the history and physical and performed a pertinent physical examination on my patient. No changes have occurred unless specified.
[2022-06-26 15:25] VITALS: BP 112/86; PULSE 90; RESP 16; TEMP 36.4; O2SAT 99
[2022-06-26 15:40] VITALS: BP 125/95; PULSE 82; RESP 16; TEMP 36.4; O2SAT 98
== END 2022-06-26 16:35 | disposition home or self-care (01) ==
PROVIDERS: PCP Nurse Practitioner Family; Visit Provider Internal Medicine Gastroenterology
PROC: (CPT 45380; principal; 2022-06-26 11:20)
DX: Z12.11 Encounter for screening for malignant neoplasm of colon (principal); K63.5 Polyp of colon; K57.30 Diverticulosis of large intestine without perforation or abscess without bleeding; K64.0 First degree hemorrhoids; K21.9 Gastro-esophageal reflux disease without esophagitis; K20.80 Other esophagitis without bleeding; K29.50 Unspecified chronic gastritis without bleeding; K22.2 Esophageal obstruction; K44.9 Diaphragmatic hernia without obstruction or gangrene; I10 Essential (primary) hypertension; E78.5 Hyperlipidemia, unspecified; D72.819 Decreased white blood cell count, unspecified; Z79.899 Other long term (current) drug therapy
CPT/HCPCS: 45380; 43239; 88305; 88342

== ENCOUNTER → 2022-07-10 14:29 | Outpatient (BNVA) | payer OTHER, SELFPAY | PROVIDERS: Visit Provider Nurse Practitioner Family | DX: K21.00 Gastro-esophageal reflux disease with esophagitis, without bleeding (principal); I10 Essential (primary) hypertension; E78.5 Hyperlipidemia, unspecified; Z98.890 Other specified postprocedural states | CPT/HCPCS: 99212 ==

== ENCOUNTER 2022-07-25 12:50 | Outpatient (REF) | payer OTHER, SELFPAY ==
--- NOTE | ~2022-07-25 | CT_ITS ---
EXAMINATION: CT CHEST, ABDOMEN AND PELVIS WITHOUT IV CONTRAST CLINICAL INFORMATION: K44.9 - Diaphragmatic hernia without obstruction or gangrene COMPARISON: Chest x-ray 05/17/2021. CT abdomen pelvis 11/15/2015. TECHNIQUE: Multidetector volumetric imaging was performed from the thoracic inlet through the pubic symphysis following the uneventful administration of: Oral contrast: No Intravenous contrast: None. Sagittal and coronal reformatted images were obtained on the technologist workstation. This CT examination was performed using dose optimization techniques as appropriate, variously including the following: *Automated exposure control *Adjustment of mA and/or kV according to patient size (this includes techniques or standardized protocols for targeted exams where dose is matched to indication/reason for exam; i.e. extremities or head) *Use of iterative reconstruction technique FINDINGS: CHEST: LUNG: No nodules, mass, or focal consolidation. MEDIASTINUM: The mediastinum in normal. The central vascular structures are unremarkable. No hilar or mediastinal lymphadenopathy. Coronary Artery Calcification: None visualized on this study. PLEURA: No significant effusion. No pleural mass or thickening. CHEST WALL/AXILLA: Unremarkable. ABDOMEN/PELVIS: The lack of intravenous contrast limits evaluation of the solid visceral organs including the liver, spleen, pancreas, and kidneys. LIVER, GALLBLADDER, AND BILIARY TREE: Limited non-contrast evaluation is normal. No gross focal hepatic lesion. Normal liver size and contour. No gross biliary ductal dilation. The gallbladder is unremarkable with no evidence of radiopaque gallstones, gallbladder wall thickening, or obvious pericholecystic inflammatory changes. PANCREAS: Limited non-contrast evaluation is normal. No jesus-pancreatic fluid. SPLEEN: Limited non-contrast evaluation is normal. ADRENAL GLANDS: Normal; no adrenal mass. KIDNEYS AND URETERS: No calculi or hydronephrosis. There is a new 1.4 cm contour deformity of the lateral cortex of the left mid kidney. GASTROINTESTINAL TRACT: Small hiatal hernia may be present. Stomach collapsed. Small bowel nondilated. Normal appendix. No colitis or diverticulitis. ABDOMINAL WALL: Small fat-containing umbilical hernia. LYMPH NODES: No pathologically enlarged lymph nodes in the abdomen or pelvis. VASCULAR: Normal caliber abdominal aorta. BLADDER: Unremarkable. PELVIC VISCERA: Unremarkable. OSSEOUS STRUCTURES: No acute or suspicious osseous abnormalities. No ascites. Stranding in the left inguinal region, consistent for prior left inguinal hernia repair. CT/CT abdomen pelvis wo IV con IMPRESSION: New 1.4 cm contour deformity of the lateral cortex of left kidney could represent a solid mass. Recommend renal protocol CT or MRI for definitive evaluation. Likely small hiatal hernia with gastric mucosa above the esophageal hiatus. The report will be called to the ordering clinician by a [facility] Physician Risk Assessment Analyst.
== END 2022-07-25 12:51 | disposition home or self-care (01) ==
LOC: HO.CT 12:50
PROVIDERS: PCP Nurse Practitioner Family; Visit Provider Surgery
DX: K44.9 Diaphragmatic hernia without obstruction or gangrene (principal)
CPT/HCPCS: 71250; 74176

== ENCOUNTER 2022-08-28 12:53 | Outpatient (REF) | payer OTHER, SELFPAY ==
--- NOTE | ~2022-08-28 | MR_ITS ---
EXAMINATION: MR ABDOMEN WITHOUT AND WITH CONTRAST CLINICAL INFORMATION: Microscopic hematuria. COMPARISON: 07/25/2022 TECHNIQUE: MR abdomen was performed without and with use of 10 mL intravenous Gadavist gadolinium contrast. Postcontrast images are performed in multiphase dynamic sequences. Imaging was performed in 3 planes. FINDINGS: LUNG BASES: No pleural or pericardial effusion. LIVER, GALLBLADDER, AND BILIARY TREE: Mild hepatic steatosis. No focal hepatic lesion or biliary ductal dilatation is present. The gallbladder is unremarkable with no evidence of gallbladder wall thickening, or obvious pericholecystic inflammatory changes. PANCREAS: No ductal dilatation. SPLEEN: Not enlarged. ADRENAL GLANDS: No adrenal masses. KIDNEYS AND URETERS: Symmetric in size and enhancement. Left lateral midpole multilobulated enhancing mass measures 1.6 x 2.0 x 1.3 cm. No hydronephrosis or perinephric stranding. GASTROINTESTINAL TRACT: No bowel obstruction. No ascites or fluid collection. LYMPH NODES: No bulky abdominal lymphadenopathy. VASCULAR: Normal caliber abdominal aorta. MR/MR abdomen wo/w con IMPRESSION: 1.6 x 2.0 x 1.3 cm solid enhancing mass lateral midpole of the left kidney. This likely represents a renal neoplasm. Advise consultation with urology.
== END 2022-08-28 12:54 | disposition home or self-care (01) ==
LOC: HO.MRI 12:53
PROVIDERS: PCP Nurse Practitioner Family; Visit Provider Urology
DX: R31.29 Other microscopic hematuria (principal)
CPT/HCPCS: 74183; A9585

== ENCOUNTER 2022-08-30 08:27 | Outpatient (REF) | payer OTHER, SELFPAY ==
--- NOTE | ~2022-08-30 | FL_ITS ---
PROCEDURE: XR GI SERIES CLINICAL INFORMATION: Diaphragmatic hernia without obstruction or gangrene. COMPARISON: None TECHNIQUE: Routine upper GI air-contrast study was performed upright and lying position. FINDINGS: Following oral administration of thick barium and effervescent granules in upright view there is normal propagation of bolus from the oral cavity through the pharynx, esophagus into stomach without any evidence of obstruction, narrowing or stricture. The course, caliber and peristalsis of stomach, duodenal bulb and the sweep is normal. On placing patient supine and prone lying there is moderate gastroesophageal reflux without hiatal hernia. The mucosal pattern of stomach, duodenum bulb and the sweep is normal. The course, caliber and peristalsis of the stomach and the duodenum are normal. FLUOROSCOPY TIME: 0.7 minutes DOSE AREA PRODUCT: 42.146 uGy-m2 (microgray-meter squared) FL/FL upper GI series IMPRESSION: Moderate gastroesophageal reflux without hiatal hernia.
== END 2022-08-30 08:28 | disposition home or self-care (01) ==
LOC: HO.XRAY 08:27
PROVIDERS: PCP Nurse Practitioner Family; Visit Provider Surgery
DX: K44.9 Diaphragmatic hernia without obstruction or gangrene (principal)
CPT/HCPCS: 74240

== ENCOUNTER → 2022-09-02 08:07 | Outpatient (BNVA) | payer OTHER, SELFPAY | PROVIDERS: PCP Nurse Practitioner Family; Visit Provider Surgery | DX: Z13.89 Encounter for screening for other disorder (principal) ==

== ENCOUNTER → 2022-09-03 09:38 | Outpatient (BNVA) | payer OTHER, SELFPAY | PROVIDERS: PCP Nurse Practitioner Family; Visit Provider Urology | DX: D41.02 Neoplasm of uncertain behavior of left kidney (principal); R35.1 Nocturia | CPT/HCPCS: 99212 ==

== ENCOUNTER → 2022-09-04 13:45 | Outpatient (BNVA) | payer OTHER, SELFPAY | PROVIDERS: PCP Nurse Practitioner Family; Visit Provider Nurse Practitioner Family | DX: K21.00 Gastro-esophageal reflux disease with esophagitis, without bleeding (principal); R10.13 Epigastric pain | CPT/HCPCS: 99212 ==

== ENCOUNTER → 2022-09-27 13:07 | Outpatient (BNVA) | payer SELFPAY | PROVIDERS: PCP Nurse Practitioner Family; Visit Provider Physician Assistant | DX: Z02.79 Encounter for issue of other medical certificate (principal) ==

== ENCOUNTER 2022-10-03 12:17 | Day surgery (SDC) | payer OTHER, SELFPAY ==
--- NOTE | ~2022-10-03 | CT_ITS ---
PROCEDURE: CT GUIDED BIOPSY, KIDNEY CLINICAL INFORMATION: Left renal mass COMPARISON: Previous CT of the abdomen and pelvis July 2022 and MR of the abdomen August 2022 TECHNIQUE: Procedure, risks and benefits including bleeding, infection, injury to the kidney, inability to do the procedure and inability to adequately treat the tumor were discussed with the patient and informed consent was performed. The patient was initially positioned in the prone position. Limited axial images through the kidneys were performed. It was difficult to visualize the lesion. Patient was administered 45 mL of Omnipaque 350 intravenous contrast and the imaging through the kidneys was performed. The left flank was prepped and draped in the usual sterile fashion. The skin and soft tissues were anesthetized with 1% lidocaine plain. Using a coaxial system and 19-gauge needle, attempted core biopsy was made. Due to movement of the lesion from the patient's breathing, adequate access to the lesion could not be obtained. The patient was positioned in the slight left decubitus/DESI position. Repeat imaging through the kidneys was performed. Again using a coaxial system, 19-gauge needle was positioned in the left renal mass. One 20-gauge core biopsy was obtained. Subsequently, a 14-gauge 17 cm in length cryoablation Ice Sphere probe was positioned in the left renal mass. Two freeze thaw cycles were performed. These consisted of two 10 minute freeze cycles followed by two 8 minute thaw cycles. Imaging during the freeze thaw demonstrated adequate position of the probe and the targeted lesion was obscured from the ice ball. The cryoablation probe was removed and postprocedure imaging was performed. Anesthesia was performed by the anesthesia department. This CT examination was performed using dose optimization techniques as appropriate, variously including the following: *Automated exposure control *Adjustment of mA and/or kV according to patient size (this includes techniques or standardized protocols for targeted exams where dose is matched to indication/reason for exam; i.e. extremities or head) *Use of iterative reconstruction technique DLP: 1139 mGy-cm FINDINGS: There is a 1.5 cm lesion in the lower pole of the left kidney that was targeted for biopsy and cryoablation. Images demonstrate adequate position of the probe and obscured targeted lesion from the ice ball. No postprocedure hemorrhage. CT/CT guided ablation renal IMPRESSION: CT-guided biopsy and cryoablation of left renal mass.
[2022-10-03 12:24] VITALS: BMI 24.3
[2022-10-03 12:39] LABS: MANUAL DIFF FLAG NO
[2022-10-03 12:42] LABS: Basophils Percent Auto 0.5 % (0-2); Eosinophils Absolute Auto 0.1 X10*3/uL (0.0-0.4); Eosinophils Percent Auto 1.4 % (0-4); Hematocrit 46.1 % (42.0-52.0); Hemoglobin 15.3 g/dl (14.0-18.0); Lymphocytes Absolute Auto 2.2 X10*3/uL (1.2-4.9); Lymphocytes Percent Auto 53.5 % (20-40); Mean Corpuscular HGB Conc 33.2 g/dl (31.0-36.0); Mean Corpuscular Hemoglobin 30.8 pg (27.0-33.0); Mean Corpuscular Volume 92.9 fL (80.0-98.0); Mean Platelet Volume 9.7 fL (9.4-12.4); Monocytes Absolute Auto 0.5 X10*3/uL (0.1-1.2); Monocytes Percent Auto 11.7 % (2-11); Neutrophils Absolute Auto 1.4 x10*3/uL (2.0-8.3); Neutrophils Percent Auto 32.9 % (45-73); Platelet Count 200 X10*3/uL (160-400); Red Blood Count 4.96 X10*6/uL (4.60-5.80); Red Cell Distribution Width 11.4 % (11.0-16.0); White Blood Count 4.2 X10*3/uL (4.8-10.8)
[2022-10-03 12:43] VITALS: BP 122/91; PULSE 68; RESP 16; TEMP 36.4; O2SAT 99
--- NOTE | 2022-10-03 12:53 | HO.ANESPROP2 ---
HPI - Anesthesia Eval Consult details Narrative: cryoablation left kidney PMFSH Active Problems Active Problems: All Active Problems (Updated 09/04/22 @ 14:30 by Jennifer Elaine [facility]) Renal neoplasm (Acute) Prostate hypertrophy (Acute) HTN (hypertension) (Acute) Diaphragmatic hernia (Acute) GERD (gastroesophageal reflux disease) (Acute) Nerve root compression (Acute) Physical exam (Acute) Swelling of right foot (Acute) High triglycerides (Acute) Penile lesion (Acute) Genital warts (Acute) Microscopic hematuria (Acute) Nocturia more than twice per night (Acute) Chest pain (Acute) Abdominal pain (Acute) Pleurisy (Acute) Urinary urgency (Acute) Screening for colon cancer (Acute) Physical exam (Acute) Abnormal CBC (Acute) Elevated serum creatinine (Acute) Acute sinusitis (Acute) Chronic radicular pain of lower back (Acute) Past Medical History Medical History Chronic radicular pain of lower back Dyslipidemia GERD (gastroesophageal reflux disease) HTN (hypertension) Leukopenia Prostate hypertrophy Family History Family History Father No problems noted. Mother No problems noted. Brother No problems noted. Sister No problems noted. Sister No problems noted. Son No problems noted. Daughter No problems noted. Family history of problems with anesthesia: No Surgical History Surgical History H/O left inguinal hernia repair History of esophagogastroduodenoscopy (EGD) Hx of colonoscopy History of Problems with Anesthesia: No Social History Social History Housing: House Alcohol intake: current Alcohol intake frequency: holidays/special occasions only Patient Tobacco Use Status: Never used Tobacco e-Cigarette/Vaping Use: Never Used Second Hand Smoke Exposure: No Use of substances other than those prescribed or required for medical reasons: No Are you DNR?: No Advance Directives: No Advance Directives Information Provided: Yes Nutrition Risks: No Nutritional Risk service: No Current occupational status: employed Current occupation: [employer] Current occupational exposures/hazards: No Cognitive needs: No Hearing needs: No Vision needs: No Meds Allergies Allergy/AdvReac Type Severity Reaction Status Date / Time No Known Allergies Allergy Verified 09/04/22 14:10 [No Known Allergies*] Exam Exam Date and Time: October 03, 2022 1253 Height,Weight and Vital Signs: Height 6 ft 4 in Weight 90.718 kg Last Vital Signs Temp 97.6 F 10/03/22 12:43 Pulse 68 10/03/22 12:43 Resp 16 10/03/22 12:43 BP 122/91 H 10/03/22 12:43 Pulse Ox 99 10/03/22 12:43 O2 Del Method 10/03/22 12:43 Pertinent Lab Results Pertinent Lab Results: Laboratory Tests 10/03/22 12:33 WBC 4.2 L RBC 4.96 Hgb 15.3 Hct 46.1 MCV 92.9 MCH 30.8 MCHC 33.2 RDW 11.4 Plt Count 200 MPV 9.7 Immature Gran % (Auto) 0.0 Neut % (Auto) 32.9 L Lymph % (Auto) 53.[address] [place] % (Auto) 11.7 H Eos % (Auto) 1.4 Baso % (Auto) 0.5 Lymph # (Auto) 2.2 [place] # (Auto) 0.5 Eos # (Auto) 0.1 Baso # (Auto) 0.0 Abs Immat Gran (auto) 0.00 Absolute Neuts (auto) 1.4 L Absolute Nucleated RBC 0.000 Nucleated RBC % (auto) 0.0 Airway Mallampati Class: II TM Dist: >3cm Neck ROM: Full Heart: ok Lungs: ok Assessment and Plan Assessment Anesthesia Assessment: Anesthesia Plan Discussed and Chart Reviewed Final Anesthetic Review Family History of Problems with Anesthesia: No History of Problems with Anesthesia: No NPO: Yes ASA Class: II Final Preanesthetic Review: No Changes in Pt Med Stat, Meds/Allgs Chart Reviewed, Consent Obtained/Reviewed and Anes Risks/Benef Reviewed Patient Risk: Low Procedure Risk: Intermediate Anesthetic Plan Anesthetic Plan: MAC: and Agree w/ Assess. and Plan Disposition: Standard PACU
[2022-10-03 12:54] LABS: INTERNATIONAL NORM RATIO 1.1 (0.9-1.1); Prothrombin Time 12.5 SEC (10.0-13.1)
[2022-10-03 12:57] LABS: Partial Thromboplastin Time 33.2 SEC (26.0-36.4)
[2022-10-03] MEDS: Lidocaine HCl 1 % MPF 5 ML VIAL 20 ML SUBCUT (16:55)
--- NOTE | 2022-10-03 17:18 | HO.RADPN ---
RADIOLOGY Narrative Narrative: CT guided left renal mass biopsy using coaxial system. One 20 g core biopsy. Single 14g 17 cm length Ice Sphere cryoablation probe placed in left renal mass with two freeze thaw cycles. No complication.
[2022-10-03 17:35] VITALS: BP 129/93; PULSE 75; RESP 14; TEMP 36.6; O2SAT 100
[2022-10-03 17:50] VITALS: BP 121/90; PULSE 70; RESP 14; O2SAT 95
[2022-10-03 18:05] VITALS: BP 143/98; PULSE 67; RESP 16; O2SAT 100
[2022-10-03 18:20] VITALS: BP 148/104; PULSE 61; RESP 16; TEMP 36.2; O2SAT 100
[2022-10-04 06:35] LABS: Creatinine POC 0.7 mg/dL (0.5-1.4); GFR POC > 60
== END 2022-10-03 18:30 | disposition home or self-care (01) ==
PROVIDERS: PCP Nurse Practitioner Family; Visit Provider Radiology Diagnostic Radiology
DX: D49.519 Neoplasm of unspecified behavior of unspecified kidney (principal); N40.1 Benign prostatic hyperplasia with lower urinary tract symptoms; R35.1 Nocturia; R31.29 Other microscopic hematuria; R39.12 Poor urinary stream; I10 Essential (primary) hypertension; E78.5 Hyperlipidemia, unspecified; D72.819 Decreased white blood cell count, unspecified; M54.16 Radiculopathy, lumbar region; G89.29 Other chronic pain; Z79.899 Other long term (current) drug therapy
CPT/HCPCS: 36415; 50200; 50593; 77012; 77013; 82565; 85025; 85610; 85730; 88305; C2618; J0690; J2250; J3010

== ENCOUNTER 2022-11-09 15:21 | Emergency (ER) | payer OTHER, SELFPAY ==
--- NOTE | ~2022-11-09 | XR_ITS ---
EXAMINATION: XR FOOT, RIGHT CLINICAL INFORMATION: Pain cellulitis evaluate for osteomyelitis COMPARISON: None available. TECHNIQUE: AP, lateral, and oblique views of the right foot. FINDINGS: The bones and soft tissues are normal. No fracture. Alignment is anatomic. Joint spaces are maintained. XR/XR foot RT min 3V IMPRESSION: Normal right foot.
--- NOTE | 2022-11-09 15:26 | ED.EXTPRO ---
HPI - Extremity Problem General Chief complaint: Extremity Injury, Lower <JAIME Faustin Last Filed: 11/09/22 15:28> Stated complaint: right foot swollen <JAIME Faustin Last Filed: 11/09/22 15:28> Time Seen by Provider: 11/09/22 17:30 <JAIME Faustin - Last Filed: 11/09/22 15:28> History of Present Illness HPI Narrative: The patient complains of right foot swelling and redness for several days, there is no injury no fever, the pain is similar to a prior episode of possible gout that was treated with a gout treatment, he denies any fever, no other joint pain or swelling no chest pain no shortness of breath no rash <JAIME Fontana - Last Filed: 11/09/22 19:05> Related Data Home medications: Previous Rx's Medication Instructions Recorded acetaminophen 325 mg capsule 650 mg PO Q4H PRN pain #30 caps 05/17/21 alfuzosin 10 mg tablet,extended 10 mg PO BEDTIME 90 days #90 tabs 03/05/22 release 24 hr sildenafil 25 mg tablet 25 mg PO DAILY PRN sexual activity 04/24/22 14 days #14 tabs diclofenac potassium 50 mg tablet 50 mg PO BID PRN pain 30 days #60 07/09/22 tabs pantoprazole 40 mg tablet,delayed 40 mg PO BID #60 tabs 07/10/22 release hydrochlorothiazide 25 mg tablet 25 mg PO DAILY #30 tabs 10/19/22 cephalexin 500 mg tablet 500 mg PO QID 7 days #28 tabs 11/09/22 ibuprofen 600 mg tablet 600 mg PO Q6H PRN pain #20 tabs 11/09/22 oxycodone 5 mg tablet 5 mg PO Q6H PRN pain #10 tabs 11/09/22 prednisone 20 mg tablet 60 mg PO DAILY 4 days #12 tabs 11/09/22 <JAIME Faustin Last Filed: 11/09/22 15:28> Allergies/Adverse reactions: Allergies Allergy/AdvReac Type Severity Reaction Status Date / Time No Known Allergies Allergy Verified 09/04/22 14:10 [No Known Allergies*] <JAIME Faustin Last Filed: 11/09/22 15:28> FOR[facility]LY [facility] Past Medical History Source: nursing notes reviewed <JAIME Fontana - Last Filed: 11/09/22 19:05> Medical History: Medical History Chronic radicular pain of lower back Dyslipidemia GERD (gastroesophageal reflux disease) HTN (hypertension) Leukopenia Prostate hypertrophy <JAIME Fautsin - Last Filed: 11/09/22 15:28> Surgical History: Surgical History H/O left inguinal hernia repair History of esophagogastroduodenoscopy (EGD) Hx of colonoscopy <JAIME Faustin - Last Filed: 11/09/22 15:28> Family History Family History: Family History Father No problems noted. Mother No problems noted. Brother No problems noted. Sister No problems noted. Sister No problems noted. Son No problems noted. Daughter No problems noted. <JAIME Faustin - Last Filed: 11/09/22 15:28> Social History Social History: Social History Housing: House Alcohol intake: current Alcohol intake frequency: holidays/special occasions only Patient Tobacco Use Status: Never used Tobacco e-Cigarette/Vaping Use: Never Used Second Hand Smoke Exposure: No Advance Directives: No Advance Directives Information Provided: Yes service: No Current occupational status: employed Current occupation: [employer] Current occupational exposures/hazards: No Cognitive needs: No Hearing needs: No Vision needs: No <JAIME Faustin - Last Filed: 11/09/22 15:28> Physical Exam Vital Signs: Vital Signs: Last Vital Signs Temp 98.1 F 11/09/22 15:27 Pulse 91 11/09/22 15:27 Resp 16 11/09/22 15:27 BP 121/96 H 11/09/22 15:27 Pulse Ox 98 11/09/22 15:27 O2 Del Method Room Air 11/09/22 15:27 BMI result Body Mass Index 24.3 <JAIME Faustin - Last Filed: 11/09/22 15:28> Vital Signs: Last Vital Signs Temp 98.1 F 11/09/22 15:27 Pulse 91 11/09/22 15:27 Resp 16 11/09/22 15:27 BP 121/96 H 11/09/22 15:27 Pulse Ox 98 11/09/22 15:27 O2 Del Method Room Air 11/09/22 15:27 BMI result Body Mass Index 24.3 <JAIME Fontana - Last Filed: 11/09/22 19:05> General appearance no acute distress Head is normocephalic atraumatic Neck is supple Respiratory no distress Extremities full range of motion x4 including right foot and ankle and toes, right foot on the lateral aspect plantar aspect of the foot there is some mild swelling there is some redness, no fluctuance no discharge no lesions no wounds, there is tenderness to the touch, it is neurovascular intact distal with full range of motion ankle and toes Skin no rash Neuro no focal motor sensory deficits <JAIME Fontana - Last Filed: 11/09/22 19:05> Course Course Course Narrative: This is an RME: Additional HPI, ROS, PE not included below will be deferred to primary provider. 52 year old male hx of HTN, GERD, gout, presents to the ed w/ pain and swelling to R. foot X2 days. Has hx of gout. Last flare was about a year and a half ago. No fevers,chills, cp, sob or hx of clot. Pe w/ swelling to right foot when compared to left. NV intact Plan- EMC appropriate back to waiting room <JAIME Faustin - Last Filed: 11/09/22 15:28> This is an RME: Additional HPI, ROS, PE not included below will be deferr needed oxycodone for the pain ed to primary provider. 52 year old male hx of HTN, GERD, gout, presents to the ed w/ pain and swelling to R. foot X2 days. Has hx of gout. Last flare was about a year and a half ago. No fevers,chills, cp, sob or hx of clot. Pe w/ swelling to right foot when compared to left. NV intact Plan- EMC appropriate back to waiting room X-ray of the right foot was normal with no acute bony abnormalities no evidence of osteomyelitis The exam of the skin on the right foot could be cellulitis as there was some redness, could be inflammation consistent with a gout flare in the foot so he is treated for both possibilities with Keflex antibiotic, prednisone for possible gout flare along with ibuprofen, well-appearing patient with full range of motion no ankle swelling, no evidence of any joint infection is discharged <JAIME Fontana - Last Filed: 11/09/22 19:05> Medications Administered Discontinued Medications Generic Name Dose Route Start Last Admin Trade Name Freq PRN Reason Stop Dose Admin Ketorolac Tromethamine 30 mg 11/09/22 15:28 11/09/22 17:12 Ketorolac Tromethamine 15 Mg/Ml Vial IM 11/09/22 15:29 30 mg ONCE ONE Administration Prednisone 40 mg 11/09/22 15:28 11/09/22 17:12 Prednisone 20 Mg Tablet PO 11/09/22 15:29 40 mg ONCE ONE Administration <JAIME Faustin - Last Filed: 11/09/22 15:28> Medications Administered Discontinued Medications Generic Name Dose Route Start Last Admin Trade Name Freq PRN Reason Stop Dose Admin Ketorolac Tromethamine 30 mg 11/09/22 15:28 11/09/22 17:12 Ketorolac Tromethamine 15 Mg/Ml Vial IM 11/09/22 15:29 30 mg ONCE ONE Administration Prednisone 40 mg 11/09/22 15:28 11/09/22 17:12 Prednisone 20 Mg Tablet PO 11/09/22 15:29 40 mg ONCE ONE Administration <JAIME Fontana - Last Filed: 11/09/22 19:05> Discharge Plan Discharge Clinical Impression: Cellulitis, Foot pain, right <JAIME Faustin - Last Filed: 11/09/22 15:28> Patient Disposition: Home, Self-Care <JAIME Faustin Last Filed: 11/09/22 15:28> Additional Instructions: X-ray of foot was normal We are treating for possibility of skin infection with Keflex antibiotic, and possibility of gout or some other inflammatory condition with prednisone and ibuprofen If pain is severe you can use the oxycodone narcotic pain killer at home Follow with primary doctor next week if not better You may need a referral to a film crew member Return to the ER for spreading redness, worse pain and swelling, fever, any worse condition or any concerns <JAIME Faustin - Last Filed: 11/09/22 15:28> Prescriptions: New prednisone 20 mg tablet 60 mg PO DAILY 4 Days Qty: 12 0RF oxycodone 5 mg tablet 5 mg PO Q6H PRN (Reason: pain) Qty: 10 0RF Rx Instructions: Partial Fill upon patient request. cephalexin 500 mg tablet 500 mg PO QID 7 Days Qty: 28 0RF ibuprofen 600 mg tablet 600 mg PO Q6H PRN (Reason: pain) Qty: 20 0RF No Action diclofenac potassium 50 mg tablet 50 mg PO BID PRN (Reason: pain) 30 Days Qty: 60 2RF hydrochlorothiazide 25 mg tablet 25 mg PO DAILY Qty: 30 2RF acetaminophen 325 mg capsule 650 mg PO Q4H PRN (Reason: pain) Qty: 30 0RF sildenafil 25 mg tablet 25 mg PO DAILY PRN (Reason: sexual activity) 14 Days Qty: 14 0RF Rx Instructions: administer 30 minutes to 4 hours before activity pantoprazole 40 mg tablet,delayed release (DR/EC) 40 mg PO BID Qty: 60 2RF alfuzosin 10 mg tablet extended release 24 hr 10 mg PO BEDTIME 90 Days Qty: 90 3RF Rx Instructions: Take before bedtime <JAIME Faustin - Last Filed: 11/09/22 15:28> Stand Alone Forms: Work/School Release <JAIME Faustin - Last Filed: 11/09/22 15:28>
[2022-11-09 15:27] VITALS: BP 121/96; PULSE 91; RESP 16; TEMP 36.7; O2SAT 98; BMI 24.3
[2022-11-09] MEDS: Ketorolac Tromethamine 15 MG/ML VIAL 30 MG IM (17:12)
[2022-11-09] MEDS: predniSONE 20 MG TABLET 40 MG PO (17:12)
== END 2022-11-09 19:16 | disposition home or self-care (01) ==
PROVIDERS: Emergency Provider Emergency Medicine Emergency Medical Services; PCP Nurse Practitioner Family
DX: L03.115 Cellulitis of right lower limb (principal); M79.671 Pain in right foot; E78.5 Hyperlipidemia, unspecified; I10 Essential (primary) hypertension; Z79.899 Other long term (current) drug therapy
CPT/HCPCS: 73630; 96372; 99283; 99284; J1885

== ENCOUNTER → 2022-11-18 11:47 | Outpatient (BNVA) | payer OTHER, SELFPAY | PROVIDERS: PCP Nurse Practitioner Family; Visit Provider Surgery | DX: K44.9 Diaphragmatic hernia without obstruction or gangrene (principal); K21.9 Gastro-esophageal reflux disease without esophagitis; R11.0 Nausea; Z01.818 Encounter for other preprocedural examination ==

== ENCOUNTER 2022-12-10 06:00 | Day surgery (SDC) | payer OTHER, SELFPAY ==
--- NOTE | 2022-11-22 12:53 | ECG_ITS ---
Test Reason : preop Blood Pressure : / mmHG Vent. Rate : 089 BPM Atrial Rate : 089 BPM P-R Int : 134 ms QRS Dur : 080 ms QT Int : 376 ms P-R-T Axes : 061 021 032 degrees QTc Int : 457 ms Normal sinus rhythm Increased R/S ratio in V1, consider early transition or posterior infarct Abnormal ECG When compared with ECG of 17-MAY-2021 15:24, No significant change was found Referred By: Wili Brand Electronically Signed By:TAMIA BRAGG MD
[2022-12-03 14:44] VITALS: BMI 24.3
[2022-12-05 14:35] LABS: MANUAL DIFF FLAG NO
[2022-12-05 14:41] LABS: Basophils Percent Auto 0.3 % (0-2); Eosinophils Percent Auto 0.8 % (0-4); Hemoglobin 14.7 g/dl (14.0-18.0); Imm Gran Abs Auto 0.01 X10*3/uL (0.00-0.03); Imm Gran Pct Auto 0.3 % (0.0-0.4); Lymphocytes Absolute Auto 1.8 X10*3/uL (1.2-4.9); Lymphocytes Percent Auto 48.5 % (20-40); Mean Corpuscular HGB Conc 33.4 g/dl (31.0-36.0); Mean Corpuscular Hemoglobin 31.1 pg (27.0-33.0); Mean Corpuscular Volume 93.2 fL (80.0-98.0); Mean Platelet Volume 9.8 fL (9.4-12.4); Monocytes Absolute Auto 0.4 X10*3/uL (0.1-1.2); Monocytes Percent Auto 11.4 % (2-11); Neutrophils Absolute Auto 1.5 x10*3/uL (2.0-8.3); Neutrophils Percent Auto 38.7 % (45-73); Platelet Count 205 X10*3/uL (160-400); Red Blood Count 4.72 X10*6/uL (4.60-5.80); Red Cell Distribution Width 11.4 % (11.0-16.0); White Blood Count 3.8 X10*3/uL (4.8-10.8)
[2022-12-05 14:52] LABS: Estimated Average Glucose 88 mg/dL; Hemoglobin A1c % 4.7 %
[2022-12-05 15:01] LABS: INTERNATIONAL NORM RATIO 1.1 (0.9-1.1); Prothrombin Time 12.1 SEC (10.0-13.1)
[2022-12-05 15:03] LABS: Partial Thromboplastin Time 33.5 SEC (26.0-36.4)
[2022-12-05 15:55] LABS: Alanine Aminotransferase 14 U/L (0-40); Albumin Level 3.9 g/dL (3.5-5.0); Alkaline Phosphatase 50 U/L (39-117); Anion Gap 11 (12-20); Aspartate Amino Transferase 14 U/L (5-37); Bilirubin Total 1.6 mg/dL (0.0-1.0); Blood Urea Nitrogen 15 mg/dL (9-16); Calcium 9.3 mg/dL (8.4-10.2); Carbon Dioxide 28 mmol/L (22-29); Chloride 107 mmol/L (96-108); Creatinine Clr Calc Pharmacy 78.8; Estimated Glomerular Filt Rate 56; Glucose Random 98 mg/dL (60-115); Potassium 4.1 mmol/L (3.3-5.1); Sodium 142 mmol/L (135-145); Total Protein 6.6 g/dL (6.5-8.0)
--- NOTE | 2022-12-07 15:53 | MHC.SHP ---
Pre-Procedural Eval Section A Date of Service: 12/07/22 The patient is an INPATIENT: Yes The History & Physical has been completed within 30 days and I have reviewed it.: Yes Section B Chief Complaint: Diaphragmatic hernia without obstruction or gangre Relevant Family History (Specify if Yes): No Relevant Social History: None Present Medications: None Medical History: No relevant PMH History of Previous Operations: No relevant previous surgery Allergies: Allergies Allergy/AdvReac Type Severity Reaction Status Date / Time No Known Allergies Allergy Verified 12/03/22 14:40 [No Known Allergies*] Review of Systems Sugical H&P ROS: Negative: Constitution, Cardiovascular, Respiratory, Neurological, Psychiatric, Hem-Onc, Allergic/Immunologic, Gastrointestinal, Genitourinary, Musculoskeletal, Integumentary, Endocrine and Eyes/Ears/Nose/Throat Exam Surgical H&P Exam: Normal: HEENT, Normal: Heart, Normal: Lungs, Normal: Extremities, Normal: Abdomen, Normal: Skin and Normal: Neurological Plan Diagnosis/Plan: Unchanged I have reviewed the history and physical and performed a pertinent physical examination on my patient. No changes have occurred unless specified. Time Spent With Patient Time: Total time managing care of this patient today ____ minutes.
--- NOTE | 2022-12-09 09:52 | P.CONAN_ITS ---
Documented by User: Ingris Jimenez NP 12/09/22 09:53 HPI - Anesthesia Eval Consult details Narrative: 52yo M for Hernia Repair Diaphragmatic Laparoscopic s/p renal cryoablation 09/2022 with TIVA PMFSH Active Problems Active Problems: All Active Problems (Updated 12/03/22 @ 14:43 by Lupe Song RN) Nerve root compression (Acute) Physical exam (Acute) Swelling of right foot (Acute) High triglycerides (Acute) Penile lesion (Acute) Genital warts (Acute) Microscopic hematuria (Acute) Nocturia more than twice per night (Acute) Chest pain (Acute) Abdominal pain (Acute) Pleurisy (Acute) Urinary urgency (Acute) Screening for colon cancer (Acute) Physical exam (Acute) Abnormal CBC (Acute) Elevated serum creatinine (Acute) Acute sinusitis (Acute) GERD (gastroesophageal reflux disease) (Acute) Diaphragmatic hernia (Acute) Renal neoplasm (Acute) Prostate hypertrophy (Acute) HTN (hypertension) (Acute) Chronic radicular pain of lower back (Acute) Past Medical History Medical History Chronic low back pain Chronic radicular pain of lower back Dyslipidemia GERD (gastroesophageal reflux disease) HTN (hypertension) Leukopenia Prostate hypertrophy Family History Family History Father No problems noted. Mother No problems noted. Brother No problems noted. Sister No problems noted. Sister No problems noted. Son No problems noted. Daughter No problems noted. Family history of problems with anesthesia: No Surgical History Surgical History H/O left inguinal hernia repair History of esophagogastroduodenoscopy (EGD) Hx of colonoscopy Status post cryoablation History of Problems with Anesthesia: No Social History Social History Housing: House Are you a primary child care giver to a significant other at home: No Do you presently have visiting nurse or other home services: No Alcohol intake: current Alcohol intake frequency: holidays/special occasions only Patient Tobacco Use Status: Never used Tobacco e-Cigarette/Vaping Use: Never Used Second Hand Smoke Exposure: No Use of substances other than those prescribed or required for medical reasons: No Have you been hit, kicked, punched, or otherwise hurt by someone within the past year? If so, by whom?: No Are you DNR?: No Advance Directives: No Advance Directives Information Provided: Yes (Mailed w/ pre-op instructions) Advance Directives on File: No Recently lost weight without trying: No Eating poorly because of decreased appetite: No Nutrition Risks: No Nutritional Risk Poor oral hygiene: No service: No Current occupational status: employed Current occupation: [employer] Current occupational exposures/hazards: No Cognitive needs: No Hearing needs: No Vision needs: No Meds Allergies Allergy/AdvReac Type Severity Reaction Status Date / Time No Known Allergies Allergy Verified 12/10/22 06:29 [No Known Allergies*] Exam Exam Date and Time: December 09, 2022 0952 Height,Weight and Vital Signs: Height 6 ft 4 in Weight 90.718 kg Pertinent Lab Results Pertinent Lab Results: Laboratory Tests 12/05/22 12/05/22 12/05/22 14:20 14:33 14:33 WBC 3.8 L RBC 4.72 Hgb 14.7 Hct 44.0 MCV 93.2 MCH 31.1 MCHC 33.4 RDW 11.4 Plt Count 205 MPV 9.8 Immature Gran % (Auto) 0.3 Neut % (Auto) 38.7 L Lymph % (Auto) 48.5 H Kingfisher % (Auto) 11.4 H Eos % (Auto) 0.8 Baso % (Auto) 0.3 Lymph # (Auto) 1.8 Kingfisher # (Auto) 0.4 Eos # (Auto) 0.0 Baso # (Auto) 0.0 Abs Immat Gran (auto) 0.01 Absolute Neuts (auto) 1.5 L Absolute Nucleated RBC 0.000 Nucleated RBC % (auto) 0.0 PT 12.1 INR 1.1 APTT 33.5 Sodium Potassium Chloride Carbon Dioxide Anion Gap BUN Creatinine Estim Creat Clear Calc Estimated GFR Random Glucose Estimat Average Glucose Hemoglobin A1c % Calcium Total Bilirubin AST ALT Alkaline Phosphatase Total Protein Albumin Blood Type A Positive Antibody Screen NEGATIVE 12/05/22 12/05/22 14:33 14:33 WBC RBC Hgb Hct MCV MCH MCHC RDW Plt Count MPV Immature Gran % (Auto) Neut % (Auto) Lymph % (Auto) Kingfisher % (Auto) Eos % (Auto) Baso % (Auto) Lymph # (Auto) Kingfisher # (Auto) Eos # (Auto) Baso # (Auto) Abs Immat Gran (auto) Absolute Neuts (auto) Absolute Nucleated RBC Nucleated RBC % (auto) PT INR APTT Sodium 142 Potassium 4.1 Chloride 107 Carbon Dioxide 28 Anion Gap 11 L BUN 15 Creatinine 1.33 Estim Creat Clear Calc 78.8 Estimated GFR 56 Random Glucose 98 Estimat Average Glucose 88 Hemoglobin A1c % 4.7 Calcium 9.3 Total Bilirubin 1.6 H AST 14 ALT 14 Alkaline Phosphatase 50 Total Protein 6.6 Albumin 3.9 Blood Type Antibody Screen Narrative Narrative: EKG 11/2022 Vent. Rate : 089 BPM ? ? Atrial Rate : 089 BPM ?? P-R Int : 134 ms? QRS Dur : 080 ms ? ? QT Int : 376 ms ? ? ? P-R-T Axes : 061 021 032 degrees ?? QTc Int : 457 ms ? Normal sinus rhythm Increased R/S ratio in V1, consider early transition or posterior infarct Abnormal ECG When compared with ECG of 17-MAY-2021 15:24, No significant change was found Assessment and Plan Assessment Anesthesia Assessment: Chart Reviewed Final Anesthetic Review Family History of Problems with Anesthesia: No History of Problems with Anesthesia: No Documented by User: Naya Funes MD 12/10/22 10:56 [facility] Active Problems Active Problems: All Active Problems (Updated 12/09/22 @ 08:00 by Naya Funes MD) Nerve root compression (Acute) Physical exam (Acute) Swelling of right foot (Acute) High triglycerides (Acute) Penile lesion (Acute) Genital warts (Acute) Microscopic hematuria (Acute) Nocturia more than twice per night (Acute) Chest pain (Acute) Abdominal pain (Acute) Pleurisy (Acute) Urinary urgency (Acute) Screening for colon cancer (Acute) Physical exam (Acute) Abnormal CBC (Acute) Elevated serum creatinine (Acute) Acute sinusitis (Acute) GERD (gastroesophageal reflux disease) (Acute) Diaphragmatic hernia (Acute) Renal neoplasm (Acute) Prostate hypertrophy (Acute) HTN (hypertension) (Acute) Chronic radicular pain of lower back (Acute) Denies BRIGIDO Past Medical History Medical History Chronic low back pain Chronic radicular pain of lower back Dyslipidemia GERD (gastroesophageal reflux disease) HTN (hypertension) Leukopenia Prostate hypertrophy Family History Family History Father No problems noted. Mother No problems noted. Brother No problems noted. Sister No problems noted. Sister No problems noted. Son No problems noted. Daughter No problems noted. Surgical History Surgical History H/O left inguinal hernia repair History of esophagogastroduodenoscopy (EGD) Hx of colonoscopy Status post cryoablation Social History Social History Housing: House Are you a primary child care giver to a significant other at home: No Do you presently have visiting nurse or other home services: No Alcohol intake: current Alcohol intake frequency: holidays/special occasions only Patient Tobacco Use Status: Never used Tobacco e-Cigarette/Vaping Use: Never Used Second Hand Smoke Exposure: No Use of substances other than those prescribed or required for medical reasons: No Have you been hit, kicked, punched, or otherwise hurt by someone within the past year? If so, by whom?: No Are you DNR?: No Advance Directives: No Advance Directives Information Provided: Yes (Mailed w/ pre-op instructions) Advance Directives on File: No Recently lost weight without trying: No Eating poorly because of decreased appetite: No Nutrition Risks: No Nutritional Risk Poor oral hygiene: No service: No Current occupational status: employed Current occupation: [employer] Current occupational exposures/hazards: No Cognitive needs: No Hearing needs: No Vision needs: No Meds Allergies Allergy/AdvReac Type Severity Reaction Status Date / Time No Known Allergies Allergy Verified 12/10/22 06:29 [No Known Allergies*] Exam Height,Weight and Vital Signs: Height 6 ft 4 in Weight 90.718 kg Vital Signs Temp Pulse Resp BP Pulse Ox O2 Del Method 12/10/22 06:36 96.9 F 77 15 126/90 H 97 Room Air Pertinent Lab Results Pertinent Lab Results: Laboratory Tests 12/05/22 12/05/22 12/05/22 14:20 14:33 14:33 WBC 3.8 L RBC 4.72 Hgb 14.7 Hct 44.0 MCV 93.2 MCH 31.1 MCHC 33.4 RDW 11.4 Plt Count 205 MPV 9.8 Immature Gran % (Auto) 0.3 Neut % (Auto) 38.7 L Lymph % (Auto) 48.5 H King[place]isher % (Auto) 11.4 H Eos % (Auto) 0.8 Baso % (Auto) 0.3 Lymph # (Auto) 1.8 [place] # (Auto) 0.4 Eos # (Auto) 0.0 Baso # (Auto) 0.0 Abs Immat Gran (auto) 0.01 Absolute Neuts (auto) 1.5 L Absolute Nucleated RBC 0.000 Nucleated RBC % (auto) 0.0 PT 12.1 INR 1.1 APTT 33.5 Sodium Potassium Chloride Carbon Dioxide Anion Gap BUN Creatinine Estim Creat Clear Calc Estimated GFR Random Glucose Estimat Average Glucose Hemoglobin A1c % Calcium Total Bilirubin AST ALT Alkaline Phosphatase Total Protein Albumin Blood Type A Positive Antibody Screen NEGATIVE 12/05/22 12/05/22 14:33 14:33 WBC RBC Hgb Hct MCV MCH MCHC RDW Plt Count MPV Immature Gran % (Auto) Neut % (Auto) Lymph % (Auto) Kingfisher % (Auto) Eos % (Auto) Baso % (Auto) Lymph # (Auto) [place] # (Auto) Eos # (Auto) Baso # (Auto) Abs Immat Gran (auto) Absolute Neuts (auto) Absolute Nucleated RBC Nucleated RBC % (auto) PT INR APTT Sodium 142 Potassium 4.1 Chloride 107 Carbon Dioxide 28 Anion Gap 11 L BUN 15 Creatinine 1.33 Estim Creat Clear Calc 78.8 Estimated GFR 56 Random Glucose 98 Estimat Average Glucose 88 Hemoglobin A1c % 4.7 Calcium 9.3 Total Bilirubin 1.6 H AST 14 ALT 14 Alkaline Phosphatase 50 Total Protein 6.6 Albumin 3.9 Blood Type Antibody Screen Laboratory Results - last 24 hr 12/09/22 12:00 COVID-19 (DANIEL) Negative COVID-19 Clin Com See Note Airway Mallampati Class: III (Overbite, overlapping long protruding top front teeth) TM Dist: >3cm Neck ROM: Full Loose/Missing/Broken Teeth: No (Denies broken, loose, missing teeth) Heart: RRR Lungs: CTAB Assessment and Plan Assessment Anesthesia Assessment: Anesthesia Plan Discussed Final Anesthetic Review NPO: Yes ASA Class: II Final Preanesthetic Review: No Changes in Pt Med Stat, Meds/Allgs Chart Reviewed, Consent Obtained/Reviewed and Anes Risks/Benef Reviewed Patient Risk: Low Procedure Risk: Low Anesthetic Plan Anesthetic Plan: GA Disposition: Standard PACU and Inp. Admit - Standard Bed
[2022-12-09 12:25] LABS: COVID-19 Test Negative (Negative); IDNOW Serial# 55D5AD1C
[2022-12-10] VITALS (16 sets, daily range): BP systolic 124–168; BP diastolic 78–97; PULSE 73–90; RESP 13–18; TEMP 35.5–37; O2SAT 97–100
[2022-12-10] MEDS: Lactated Ringers 1,000 ML 100 ML IVCONT ×2 (06:57→21:01)
[2022-12-10] MEDS: Aprepitant 32 MG/4.4 ML VIAL IVPUSH (06:57)
--- NOTE | 2022-12-10 08:12 | PM.OP ---
Brief Operative Note Date of Service: 12/10/22 Pre-op diagnosis: Diaphragmatic hernia and GERD Post-op diagnosis: same Procedure: COMORBIDITIES: GERD, diaphragmatic hernia, BPH, hypertension, gout, knee pain ?INDICATIONS: The patient is a 52 year old male who was referred to me from Dr. Guthrie for a diaphragmatic hernia and GERD confirmed by EGD, CT-chest and UGI. The patient is scheduled today for diaphragmatic hernia repair. Risks of recurrent hernia, dysphagia, persistent GERD, VTE, leak, infection and bleeding were discussed with the patient and he is in agreement with the plan. PROCEDURE: Esophago-gastroscopy, laparoscopic repair of incarcerated diaphragmatic hernia and laparoscopic gastropexy DESCRIPTION OF PROCEDURE: After informed consent was obtained from the patient, the patient was given preoperative antibiotics, and was transferred to the operating room. After successful induction of general anesthesia, pneumatic compression devices were placed on both lower extremities. An upper endoscopy was performed next. The oropharynx and esophagus appeared to be within normal limits. There was a diaphragmatic hernia present of moderate size consistent with the findings of the preoperative upper GI. The stomach was entered. Then after all fluid and air were suctioned and the stomach was fully decompressed, the scope was withdrawn and secured in the mid esophagus. The patient was then prepped and draped in the usual sterile manner, and abdominal access was established at the right upper quadrant with the Crispin technique. A 12 mm blunt port was inserted, and the abdomen was insufflated with CO2 to a pressure of 15 mmHg. Under direct visualization, additional ports were placed, specifically two 5 mm Versi-step ports to the left upper quadrant, and a 5 mm Versi-Step port to the right upper quadrant. 1% lidocaine plain was used to infiltrate all port sites as well as all fascia defects. Following that, the patient was placed in a steep reverse Trendelenburg position. An additional 5 mm port was placed to the right flank for the Mediflex retractor that was used to retract the left lobe of the liver. The gastro-esophageal fat pad was opened with the ultrasonic device (Thunderbeat, Olympus) and the anterior esophagus and hiatus were exposed. The angle of His was opened with the ultrasonic device the fundus of the stomach from any diaphragmatic and splenic attachments. I then opened the gastrocolic ligament between the transverse colon and the greater curvature of the stomach with the ultrasonic device to enter the lesser sac and facilitate the ligation of the short gastric vessels. I started at a mid-point along the greater curvature and using the Thunderbeat, all short gastric vessels were divided all the way to the angle of His until the left roberto was completely dissected at its entirety. There was an obvious significant-sized hiatal hernia. I continued dissecting along the hiatus toward the left roberto and the angle of His. There was a large replaced left hepatic artery which was carefully preserved. That made the dissection more challenging. Neveretheless, I fully mobilized the fat pad that was incarcerated in the hernia. I then continued by dissecting even further into the posterior retro-esophageal space all the way to the angle of His. I continued to mobilize the esophagus into the mediastinum circumferentially. Both vagal nerves were seen and preserved. At that point, I was able to have 5 cm of esophagus into the abdomen.? After I completely mobilized the esophagus from both the left and right roberto and I had a good mobilization of the esophagus circumferentially, I closed the hernia defect with four interrupted #0 Surgidac sutures using the Endo Stitch device, three of which were placed posterior and one of which anterior to the esophagus. ? A gastropexy was then performed in order to prevent postoperative GERD and partial gastric volvulus. Several interrupted 2.0 Surgidac sutures were placed between the greater curvature of the dissected stomach and the previously divided greater omentum and gastro-colic ligament using the Endo-Stitch device. ?An upper endoscopy was performed. There was no narrowing at the GE junction or any esophageal injury. The scope was easily advanced all the way to the pylorus which was clearly visualized. There was no narrowing anywhere. At that point the gastroscope was withdrawn from the patient?s mouth while we were decompressing the bowel and the stomach from any remaining air. I looked into the lesser sac to see how the stomach was situating and it was situating well. There was no bleeding from the, spleen, or short gastric vessels. The Mediflex retractor was removed, and the undersurface of the liver was inspected and there was no bleeding. The patient was placed in supine position. I closed the fascial defect of the 12 mm port site with a figure of eight #1 Polysorb suture. Then 30cc of Ropivacaine plain with 10 mg of Dexamethasone were used to infiltrate the fascial closure as well as all skin incisions. A total of 7ml of Zynrelef was applied in the Crispin wound. At this point, the abdomen was deflated, all ports were removed under direct vision, and no bleeding was noted from any of the port sites. The skin incisions were irrigated with saline and were closed with 4-0 absorbable monofilament sutures. Steri-Strips and OpSites were used to cover all incisions. The patient was extubated and was transferred in stable condition to the recovery room for further care. I was present and performed all demarco parts of the procedure. Ms. Middletonson was the certified surgical tech/first assistant. There were no residents to assist with this case. Ryan Brand MD, PhD, FACS Surgeon: Wili Brand MD Anesthesia: GETA, local and other (TAP block and ml Zynrelef) Was an Gastroenterology Nurse Practitioner used for this Procedure?: No Gastroenterology Nurse Practitioner: Stefanie Reyes Estimated blood loss (mL): 10 IV fluids (mL): 1,600 Urine output (mL): 0 (No Murphy to record output) Pathology: other Condition: stable Disposition: PACU
--- NOTE | 2022-12-10 08:18 | P.PNGS_ITS ---
Subjective Subjective Date of Service: 12/11/22 Interval history: Feels well. Mild incisional pain. He is tolerating phase 1 bariatric diet Physical Exam Vital Signs: Vital Signs: Last Vital Signs Temp 96.9 F 12/10/22 06:36 Pulse 77 12/10/22 06:36 Resp 15 12/10/22 06:36 BP 126/90 H 12/10/22 06:36 Pulse Ox 97 12/10/22 06:36 O2 Del Method Room Air 12/10/22 06:36 BMI result Body Mass Index 24.3 GI: Inspection: Yes normal to inspection and Yes incision (clean, dry and intact) Palpation (GI): Soft to palpation Extrem: Right lower extremity: normal to inspection (no calf tenderness) Left lower extremity: normal to inspection (no calf tenderness) Objective Data Active Medications Lactated Ringer's (Lr) 1,000 mls @ 100 mls/hr IVCONT .Q10H [facility] Last Admin: 12/10/22 06:57 Dose: 100 mls/hr Documented By: SERGE Lactated Ringer's (Lr) 1,000 mls @ 100 mls/hr IVCONT .Q10H [facility] Labs 12/05/22 14:33 12/05/22 14:33 Labs: Laboratory Results - last 24 hr 12/09/22 12:00 COVID-19 (DANIEL) Negative COVID-19 Clin Com See Note Procedures Date of Service Date of Service: 12/11/22 Progress Note: A&P Assessment and plan (1) Diaphragmatic hernia: Status: Acute Assessment and Plan: s/p laparoscopic diaphragmatic hernia repair and gastropexy Doing well Will check am labs and if OK the patient will be discharged home (2) GERD (gastroesophageal reflux disease): Status: Acute (3) HTN (hypertension): Status: Acute (4) Prostate hypertrophy: Status: Acute (5) Chronic radicular pain of lower back: Status: Acute (6) S/P repair of paraesophageal hernia: Status: Acute Time Spent With Patient Time: Total time managing care of this patient today ____ minutes. Quality Stroke Does the patient have a stroke diagnosis?: No VTE Prior VTE?: No VTE Risk Level:: Surgical - moderate VTE Device Contraindication: N/A - Device Ordered VTE Drug Contraindication: Treatment Not Indicated
--- NOTE | 2022-12-10 11:16 | P.DS_ITS ---
DS: Providers Provider Date of Service: 12/11/22 Primary care physician: Asher Weiss, [facility] DS: Diagnosis Discharge Diagnosis (1) Diaphragmatic hernia: Status: Acute (2) GERD (gastroesophageal reflux disease): Status: Acute (3) HTN (hypertension): Status: Acute (4) Prostate hypertrophy: Status: Acute (5) Chronic radicular pain of lower back: Status: Acute (6) Gout: Status: Acute DS: Summary Hospital Course Hospital Course: ADMITTING DIAGNOSIS: diaphragmatic hernia, GERD, HTN, prostatic hypertrophy DISCHARGE DIAGNOSIS: same, repair diaphragmatic hernia and gastropexy PAST SURGICAL HISTORY: inguinal hernia repair, EGD and colonoscopy PROCEDURE: upper endoscopy, repair of diaphragmatic hernia hernia and gastropexy DISCHARGE SUMMARY: History of Present Illness: The patient is a 52 year-old man who was referred by [facility] fro repair of symptomatic large diaphragmatic hernia. Risks and complications of the surgery were discussed with the patient in advance, particularly the possibility of , pulmonary embolism, GERD, cardiac, renal or pulmonary complications. The patient understood all the risks and was in agreement with the surgical plan. Hospital Course: The patient underwent an uneventful diaphragmatic hernia repair with gastropexy on the day of admission. Postoperatively, the patient was transferred to the surgical floor. The patient received IV Acetaminophen and IV dilaudid for pain control. Patient was started on bariatric phase 1 diet POD #0. On postoperative day one, the patient was feeling well without nausea, vomiting, fevers, or tachycardia. The patient had some mild incisional pain and the abdomen was soft. On the morning of postoperative day one, the patient was continued on 1 ounce of water or ice every half hour. During the day, the patient did fairly well, having some incisional pain, but able to ambulate adequately and to tolerate liquids well. Since the patient is doing well, we decided that the patient was ready to be discharged. The patient was given instructions to follow-up with me next week and to call my office for any fever over 101, persistent abdominal pain, nausea, vomiting, GERD, symptoms of DVT such as calf tenderness, or leg swelling, or pulmonary embolism such as chest pain or shortness of breath. The patient had been given prescriptions for Tylenol for pain, Zofran prn for nausea, and pantoprazole and carafate previously. The patient was encouraged to ambulate and use the incentive spirometer. The patient was allowed to shower, but no baths, and encouraged to stay active at home. All of these instructions were given to the patient personally. All questions were answered and the patient understood all instructions, the instructions were also given to the patient in print. Time Spent with Patient Time attestation: Total time managing care of this patient today ____ minutes. Discharge coordination time: Less than 30 minutes Quality: Safe Use of Opioids Does Pt have an Active Cancer Diagnosis on the Problem List?: No Quality: Stroke Does the patient have a stroke diagnosis?: No Physical Exam Vital Signs: Vital Signs: Last Vital Signs Temp 96.9 F 12/10/22 06:36 Pulse 77 12/10/22 06:36 Resp 15 12/10/22 06:36 BP 126/90 H 12/10/22 06:36 Pulse Ox 97 12/10/22 06:36 O2 Del Method Room Air 12/10/22 06:36 BMI result Body Mass Index 24.3 DS: Data Data Completed and Pending Labs on day of discharge: Laboratory Results - last 24 hr 12/09/22 12:00 COVID-19 (DANIEL) Negative COVID-19 Clin Com See Note Discharge Plan Discharge Patient Disposition: Home, Self-Care Referrals: Asher Weiss, [employer] [Primary Care Provider] - 1 Week Discharge Medications: Continued hydrochlorothiazide 25 mg tablet 25 mg PO DAILY Qty: 30 2RF acetaminophen 325 mg capsule 650 mg PO Q4H PRN (Reason: pain) Qty: 30 0RF pantoprazole 40 mg tablet,delayed release (DR/EC) 40 mg PO BID Qty: 60 2RF alfuzosin 10 mg tablet extended release 24 hr 10 mg PO BEDTIME 90 Days Qty: 90 3RF Rx Instructions: Take before bedtime sucralfate 100 mg/mL suspension 10 ml PO BID Qty: 200 0RF ondansetron 4 mg tablet,disintegrating 4 mg PO Q12H Qty: 20 0RF Discontinued diclofenac potassium 50 mg tablet 50 mg PO BID PRN (Reason: pain) 30 Days Qty: 60 2RF ibuprofen 600 mg tablet 600 mg PO Q6H PRN (Reason: pain) Qty: 20 0RF Discharge Orders: Discharge Order (Routine); Ordered 12/11/22 Ordered By: Wili Raftopoulos Activity on Discharge: No heavy lifting Activity Restrictions/Additional Instructions: 1) Remain on liquid protein shake diiet until 1st postoperative appointment 2) Buy the Celebrate Rebuild protein shakes from the hospital's gift shop any flavor you like 3) Continue Pantoprazole one pill per day daily and Sucralfate 10ml every 12 hours for 3 months 4) Take 1 tabket Tylenol every 4 hours 5) Call Dr. Brand at [phone] for fever >101F, persistent nausea, vomiting, abdominal pain, shortness of breath, calf pain.
[2022-12-10 12:13] LABS: Hemoglobin 14.4 g/dl (14.0-18.0)
[2022-12-10 12:20] LABS: Anion Gap 10 (12-20); Blood Urea Nitrogen 19 mg/dL (9-16); Calcium 8.9 mg/dL (8.4-10.2); Carbon Dioxide 28 mmol/L (22-29); Chloride 105 mmol/L (96-108); Creatinine Clr Calc Pharmacy 77.1; Estimated Glomerular Filt Rate 55; Glucose Random 101 mg/dL (60-115); Potassium 4.2 mmol/L (3.3-5.1); Sodium 139 mmol/L (135-145)
[2022-12-10] MEDS: ceFAZolin Sodium/Dextrose,Iso 2 GM/50 ML PIGGYBACK IV (13:57)
[2022-12-10] MEDS: ondansetron HCL 4 MG/2 ML VIAL IVPUSH ×2 (13:57→20:46)
[2022-12-10] MEDS: Famotidine/PF 20 MG/2 ML VIAL IVPUSH ×2 (13:57→20:46)
[2022-12-10] MEDS: Acetaminophen 1,000 MG/100 ML PIGGYBACK 16.7 MG IV ×2 (16:07→21:00)
[2022-12-11] MEDS: Acetaminophen 1,000 MG/100 ML PIGGYBACK 16.7 MG IV (02:48)
[2022-12-11 03:34] VITALS: BP 109/71; PULSE 80; RESP 18; TEMP 36.5; O2SAT 96
[2022-12-11] MEDS: Lactated Ringers 1,000 ML 100 ML IVCONT (05:32)
[2022-12-11] MEDS: ondansetron HCL 4 MG/2 ML VIAL IVPUSH (05:32)
[2022-12-11 06:13] LABS: MANUAL DIFF FLAG NO
[2022-12-11 06:32] LABS: Basophils Percent Auto 0.2 % (0-2); Hematocrit 40.1 % (42.0-52.0); Hemoglobin 13.5 g/dl (14.0-18.0); Imm Gran Abs Auto 0.02 X10*3/uL (0.00-0.03); Imm Gran Pct Auto 0.4 % (0.0-0.4); Lymphocytes Absolute Auto 0.9 X10*3/uL (1.2-4.9); Lymphocytes Percent Auto 19.1 % (20-40); Mean Corpuscular HGB Conc 33.7 g/dl (31.0-36.0); Mean Corpuscular Hemoglobin 30.8 pg (27.0-33.0); Mean Corpuscular Volume 91.3 fL (80.0-98.0); Mean Platelet Volume 9.9 fL (9.4-12.4); Monocytes Absolute Auto 0.5 X10*3/uL (0.1-1.2); Neutrophils Absolute Auto 3.3 x10*3/uL (2.0-8.3); Neutrophils Percent Auto 70.3 % (45-73); Platelet Count 212 X10*3/uL (160-400); Red Blood Count 4.39 X10*6/uL (4.60-5.80); Red Cell Distribution Width 11.3 % (11.0-16.0); White Blood Count 4.7 X10*3/uL (4.8-10.8)
[2022-12-11 06:52] LABS: Anion Gap 13 (12-20); Blood Urea Nitrogen 17 mg/dL (9-16); Calcium 8.8 mg/dL (8.4-10.2); Carbon Dioxide 24 mmol/L (22-29); Chloride 105 mmol/L (96-108); Creatinine Clr Calc Pharmacy 85.9; Estimated Glomerular Filt Rate > 60; Glucose Random 109 mg/dL (60-115); Potassium 4.3 mmol/L (3.3-5.1); Sodium 138 mmol/L (135-145)
[2022-12-11] MEDS: Famotidine/PF 20 MG/2 ML VIAL IVPUSH (06:59)
--- NOTE | 2022-12-11 07:02 | HO.POSTANES ---
Post Anesthesia Evaluation Post Anesthesia Evaluation Vital Signs: Vital Signs Temp Pulse Resp BP Pulse Ox O2 Del Method 12/10/22 23:33 98.1 F 87 18 135/78 97 Room Air 12/11/22 03:34 97.7 F 80 18 109/71 96 Room Air 12/10/22 19:20 97.1 F 90 18 128/79 98 Room Air 12/10/22 19:17 97.1 F 83 18 128/79 98 Room Air Anesthesia: General Endotracheal-GETA Mental Status: Awake Pain Control: Satisfactory Nausea/Vomiting: None Hydration: Adequate Anesthesia-Related Issues: No Anes. Related Issues
[2022-12-11 07:16] VITALS: BP 142/91; PULSE 65; RESP 16; TEMP 36.6; O2SAT 98
--- NOTE | 2022-12-11 08:55 | MHC.CM.PN ---
pt dcd home with no servceis needed pt is indepedent has own ride home
== END 2022-12-11 10:23 | disposition home or self-care (01) ==
LOC: HO.SSS 11:33 → HO.S3 12:52
PROVIDERS: Physician Assistant; Physician Assistant Surgical; PCP Nurse Practitioner Family; Visit Provider Surgery
PROC: 0BQT4ZZ Repair Diaphragm, Percutaneous Endoscopic Approach (ICD-10-PCS; CPT 43280; principal; 2022-12-10 08:10)
DX: K44.9 Diaphragmatic hernia without obstruction or gangrene (principal); K21.00 Gastro-esophageal reflux disease with esophagitis, without bleeding; R11.0 Nausea; D72.819 Decreased white blood cell count, unspecified; D30.02 Benign neoplasm of left kidney; I10 Essential (primary) hypertension; E78.5 Hyperlipidemia, unspecified; N40.0 Benign prostatic hyperplasia without lower urinary tract symptoms; M10.9 Gout, unspecified; G89.29 Other chronic pain; M54.50 Low back pain, unspecified; Z79.1 Long term (current) use of non-steroidal anti-inflammatories (NSAID); Z79.899 Other long term (current) drug therapy; Z98.890 Other specified postprocedural states; Z20.822 Contact with and (suspected) exposure to COVID-19
CPT/HCPCS: 43280; 36415; 80048; 80053; 83036; 85014; 85018; 85025; 85610; 85730; 86850; 86900; 86901; 87635; 93005; C9088; C9145; J0131; J0690; J1100; J2250; J2370; J2405; J2795; J3010

== ENCOUNTER → 2022-12-20 09:06 | Outpatient (BNVA) | payer OTHER, SELFPAY | PROVIDERS: PCP Nurse Practitioner Family; Visit Provider Surgery | DX: K21.00 Gastro-esophageal reflux disease with esophagitis, without bleeding (principal); K44.9 Diaphragmatic hernia without obstruction or gangrene; Z98.890 Other specified postprocedural states; Z87.19 Personal history of other diseases of the digestive system | CPT/HCPCS: 99212 ==

== ENCOUNTER 2022-12-31 14:09 | Outpatient (REF) | payer OTHER, SELFPAY ==
[2022-12-31 17:15] LABS: Lipase 24 U/L (8-78)
== END 2022-12-31 14:10 | disposition home or self-care (01) ==
LOC: HO.LAB 14:09
PROVIDERS: PCP Nurse Practitioner Family; Visit Provider Nurse Practitioner Family
DX: K21.9 Gastro-esophageal reflux disease without esophagitis (principal); R10.13 Epigastric pain; K21.00 Gastro-esophageal reflux disease with esophagitis, without bleeding; R14.0 Abdominal distension (gaseous); K59.1 Functional diarrhea
CPT/HCPCS: 36415; 83690; 99212

== ENCOUNTER 2023-01-03 11:22 | Outpatient (REF) | payer OTHER, SELFPAY ==
[2023-01-03 13:57] LABS: MANUAL DIFF FLAG NO
[2023-01-03 14:03] LABS: Basophils Percent Auto 0.3 % (0-2); Eosinophils Absolute Auto 0.1 X10*3/uL (0.0-0.4); Eosinophils Percent Auto 0.7 % (0-4); Imm Gran Abs Auto 0.02 X10*3/uL (0.00-0.03); Imm Gran Pct Auto 0.3 % (0.0-0.4); Lymphocytes Absolute Auto 1.6 X10*3/uL (1.2-4.9); Lymphocytes Percent Auto 23.7 % (20-40); Mean Corpuscular HGB Conc 32.6 g/dl (31.0-36.0); Mean Corpuscular Volume 95.3 fL (80.0-98.0); Mean Platelet Volume 9.8 fL (9.4-12.4); Monocytes Absolute Auto 0.6 X10*3/uL (0.1-1.2); Monocytes Percent Auto 9.3 % (2-11); Neutrophils Absolute Auto 4.5 x10*3/uL (2.0-8.3); Neutrophils Percent Auto 65.7 % (45-73); Platelet Count 234 X10*3/uL (160-400); Red Blood Count 4.51 X10*6/uL (4.60-5.80); Red Cell Distribution Width 11.6 % (11.0-16.0); White Blood Count 6.8 X10*3/uL (4.8-10.8)
[2023-01-03 14:28] LABS: Anion Gap 12 (12-20); Blood Urea Nitrogen 14 mg/dL (9-16); Calcium 9.5 mg/dL (8.4-10.2); Carbon Dioxide 29 mmol/L (22-29); Chloride 106 mmol/L (96-108); Estimated Glomerular Filt Rate 58; Glucose Random 96 mg/dL (60-115); Sodium 143 mmol/L (135-145); Uric Acid 9.5 mg/dL (3.4-7.0)
== END 2023-01-03 11:23 | disposition home or self-care (01) ==
LOC: HO.HMGCLDS 11:22
PROVIDERS: PCP Nurse Practitioner Family; Visit Provider Nurse Practitioner Family
DX: M10.9 Gout, unspecified (principal)
CPT/HCPCS: 36415; 80048; 84550; 85025

== ENCOUNTER 2023-01-09 15:41 | Outpatient (REF) | payer OTHER, SELFPAY ==
[2023-01-20 23:08] LABS: Pancreatic Elastase-1 >500 mcg/g
== END 2023-01-09 15:42 | disposition home or self-care (01) ==
LOC: HO.LNP 15:41
PROVIDERS: Visit Provider Nurse Practitioner Family
DX: R10.9 Unspecified abdominal pain (principal)
CPT/HCPCS: 82656

== ENCOUNTER 2023-01-31 11:03 | Outpatient (REF) | payer OTHER, SELFPAY ==
--- NOTE | ~2023-01-31 | CT_ITS ---
EXAMINATION: CT ABDOMEN WITHOUT AND WITH CONTRAST CLINICAL INFORMATION: Left renal mass post cryoablation COMPARISON: Previous CT July 2022 and MR August 2022 TECHNIQUE: Contiguous axial thin section helical images of the abdomen were performed before and after the administration of oral contrast and 85 mL of Omnipaque 350 intravenous contrast. The data set was reformatted in the coronal and sagittal planes and reviewed on an independent workstation. This CT examination was performed using dose optimization techniques as appropriate, variously including the following: *Automated exposure control *Adjustment of mA and/or kV according to patient size (this includes techniques or standardized protocols for targeted exams where dose is matched to indication/reason for exam; i.e. extremities or head) *Use of iterative reconstruction technique DLP: 381 mGy-cm FINDINGS: LUNG BASES: The lung bases are clear. There are surgical clips adjacent to the distal thoracic esophagus/GE junction region. LIVER, GALLBLADDER, AND BILIARY TREE: The reminder a be mild fatty infiltration of the liver. The liver and gallbladder are otherwise normal. PANCREAS: Normal SPLEEN: Normal ADRENAL GLANDS AND KIDNEYS: The adrenal glands are normal. The right kidney is normal. There is a low-attenuation cystic area in the lower pole of the left kidney measuring 1.6 x 1.8 cm. There is surrounding stranding of the fat. Appearance is compatible with post cryoablation changes. No solid component or enhancement is seen. The left kidney is otherwise normal. BOWEL LOOPS: Stool throughout the colon questionable for constipation. Small and large bowel is otherwise normal. The appendix is normal. LYMPH NODES: Normal. VASCULAR: Unremarkable. BONES: Normal CT/CT abdomen wo/w IV con IMPRESSION: Post cryoablation changes to the lower pole of the left kidney. Fleischner guidelines were followed.
[2023-01-31] MEDS: iohexoL 350 MG/ML 100 ML INFUS..BTL IV (11:58)
== END 2023-01-31 11:04 | disposition home or self-care (01) ==
LOC: HO.CT 11:03
PROVIDERS: PCP Nurse Practitioner Family; Visit Provider Urology
DX: D49.519 Neoplasm of unspecified behavior of unspecified kidney (principal)
CPT/HCPCS: 74170; Q9967

== ENCOUNTER 2023-03-04 10:44 | Outpatient (AMB) | payer OTHER, SELFPAY ==
--- NOTE | 2023-03-04 10:45 | A.OFFVIS_ITS ---
Intake Intake Visit Reasons: 1Y PVR/CT(set) Intake Note: Patient is present for Follow Up CT/PVR Urology Med: None Antibiotic Allergy: None Blood Thinner: None PVR: 0ml Patient states that over a month ago he notice blood again in his semen. Patient had stopped all medication by Dr Guy due to recent surgery for Hernia repair that was done in [place]. Patient states that he would like to discuss his concerns prior of starting medication again. Allergies No Known Allergies [No Known Allergies*] Allergy (Verified 03/04/23 10:47) Medication List - Last Reconciled 03/04/23 by Michael Guy MD colchicine 0.6 mg PO DAILY 30 days hydrochlorothiazide 25 mg PO DAILY pantoprazole 40 mg PO BID prednisone 10 mg PO DIRECTED 18 days simethicone (Gas Relief (simethicone)) 125 mg PO TID-QID PRN HPI HPI Comments 2 History of Present Illness Details Ambrose ESTEBAN is a very pleasant male. They are a patient of Dr Ambriz. He is seen for the following urologic conditions. - nocturia - microscopic hematuria - renal tumor Telemedicine Evaluation 15 min Consultation Freeppie Rashaun Video attempted Left renal cancer - cryotherapy 12/31 - was benign Small 1.5 cm renal tumor found on left lateral aspect of kidney during evaluation for hiatal hernia Imaging - 08/01 MRI shows 1.5 cm left lateral lower pole enhancing lesion - 01/31 CT post cryo changes Cryotherapy as first-line therapy - 10/03 Lower urinary tract symptoms Nocturia x3 Mild weakness of stream Current medication - alfuzosin PSA 05/29 0.4, 03/01 0.5 Prior medication terazosin which caused dizziness Microscopic Hematuria:? No blood on urinalysis ?Check in 12 months. ? Microscopic hematuria was diagnosed during?Seen at the hospital for evaluation of hematuria January 2019. Resolved at that point in time..? Since the last visit the patient has?noticed gross hematuria, does not test positive for microscopic hematuria.? Relevant medical history for?no pertinent medical history.? Radiographic imaging:?CT KUB negative.? Radiology report?no genitourinary abnormality.? Other investigations?FISH, normal.? Cystoscopy findings?03/29 slight reddness of urethra but otherwise NAD.? PFSH Medical History Chronic low back pain Chronic radicular pain of lower back Dyslipidemia GERD (gastroesophageal reflux disease) Gout HTN (hypertension) Leukopenia Prostate hypertrophy Surgical History H/O left inguinal hernia repair History of esophagogastroduodenoscopy (EGD) Hx of colonoscopy Status post cryoablation Family History Father No problems noted. Mother No problems noted. Brother No problems noted. Sister No problems noted. Sister No problems noted. Son No problems noted. Daughter No problems noted. Social History Household Members: None Housing: Apartment Are you a primary primary care md to a significant other at home: No Do you presently have visiting nurse or other home services: No Alcohol intake: current Alcohol intake frequency: holidays/special occasions only Patient Tobacco Use Status: Never used Tobacco e-Cigarette/Vaping Use: Never Used Second Hand Smoke Exposure: No service: No Current occupational status: employed Current occupation: [employer] Current occupational exposures/hazards: No Cognitive needs: No Hearing needs: No Vision needs: No Review of Systems Const All systems reviewed & are unremarkable except as noted in HPI and below Reports no additional complaints Resp Reports no additional complaints GI Reports no additional complaints Reports as per HPI Musc Reports no additional complaints Physical Exam Telemedicine evaluation Appropriate responses Regular breathing rate and rhythm HEENT Head: Yes normal to inspection Ears: hearing grossly normal bilaterally Eyes General: appearance normal, both eyes and all related structures Neck Neck: Yes normal visual inspection Chest Chest palpation & inspection: normal inspection of the chest Resp Effort & Inspection: normal respiratory effort and able to speak in complete sentences Office Procedures Post Void Residual Post Residual Void Post Void Residual (PVR): 0 41202-Bmrt Void Residual by ultrasound Results AMB Urinalysis, Automated UA Leukoctes 0 Luzma/uL Last Edit by JULISA Bailon on 03/04/23 10:57 UA Nitrite Negative Last Edit by Ilene Garcia RMA on 03/04/23 10:57 UA Urobilinogen 0.2 mg/dL Last Edit by Ilene Garcia, RMA on 03/04/23 10:5 7 UA Protein 0 mg/dL Last Edit by Ilene Garcia, RMA on 03/04/23 10:57 UA pH 5.5 Last Edit by Ilene Garcia, RMA on 03/04/23 10:57 UA Blood 0 Oswald/uL Last Edit by Ilene Garcia, RMA on 03/04/23 10:57 UA Specific [place] 1.020 Last Edit by Ilene Garcia, RMA on 03/04/23 10: 57 UA Ketone Negative Last Edit by Ilene Garcia, RMA on 03/04/23 10:57 UA Bilirubin 0 mg/dL Last Edit by Ilene Garcia, RMA on 03/04/23 10:57 UA Glucose 0 mg/dL Last Edit by Ilene Garcia, A on 03/04/23 10:57 Results Reviewed Results Reviewed: Laboratory Last Values Urine pH (Auto) 5.5 03/04/23 10:48 Specific [place] (Auto) 1.020 03/04/23 10:48 Urine Protein (Auto) 0 mg/dL 03/04/23 10:48 Glucose (UA)(Auto) 0 mg/dL 03/04/23 10:48 Urine Ketones (Auto) Negative 03/04/23 10:48 Urine Blood (Auto) 0 Oswald/uL 03/04/23 10:48 Urine Nitrite (Auto) Negative 03/04/23 10:48 Urine Bilirubin (Auto) 0 mg/dL 03/04/23 10:48 Urine Urobilinogen (Auto) 0.2 mg/dL 03/04/23 10:48 Leukocyte Esterase (Auto) 0 Luzma/uL 03/04/23 10:48 Assessment & Plan Assessment & Plan (1) Renal neoplasm: Code(s): D49.519 - Neoplasm of unspecified behavior of unspecified kidney Plan Six month follow-up imaging Orders: Orders US renal BI 6 Months D49.519 - Neoplasm of unspecified behavior of unspecified kidney AMB Urinalysis Automated Today Z13.9 - Encounter for screening, unspecified AMB Post Void Residual by ultrasound Today R39.15 - Urgency of urination Patient Instructions: Imaging studies, laboratory and physical exam results were discussed and reviewed in detail. No major barriers to patient understanding were identified. An opportunity to ask questions regarding the treatment plan was provided. All questions were answered. The patient expressed understanding and agreement with the above treatment plan. The patient is aware they should contact our office by phone for worsening of their current condition or the appearance of new urologic symptoms. Compliance is encouraged with any medications and followup testing that is ordered. It is a privilege to participate in the urologic care of your patient. If you have any questions or concerns regarding treatment for the above conditions, or other urologic issues, please do not hesitate to contact me. The office telephone contact is [phone]. This note is constructed using voice recognition software. While every effort has been made to ensure accuracy breaker machine tender errors may have been included. Yours sincerely, Dr Michael Guy MD, [facility] - Urology Providers of Expert, Compassionate Care for the Genitourinary System Telehealth Telehealth Location of provider rendering services: practice address Location of patient: address on file Patient Identification confirmed using: Name, : Yes Telehealth method: voice only Patient verbally consented to treatment: Yes Patient verbally consented to billing insurance company: Yes Patient informed of any privacy concerns related to visit: Yes Coding Level of Care Code Tele Est Pt Level 3 (31384) Diagnoses Renal neoplasm D49.519 CPT Codes Post Residual Void - PVR CPT Code: 54711-Dlzw Void Residual by ultrasound ([id number])
== END 2023-03-04 11:31 | disposition home or self-care (01) ==
PROVIDERS: Visit Provider Urology
DX: D49.519 Neoplasm of unspecified behavior of unspecified kidney (principal)
CPT/HCPCS: 99213

== ENCOUNTER → 2023-03-04 10:44 | Outpatient (BNVA) | payer OTHER, SELFPAY | PROVIDERS: Visit Provider Urology ==

== ENCOUNTER 2023-03-17 11:18 | Outpatient (AMB) | payer OTHER, SELFPAY ==
[2023-03-17 11:26] VITALS: BP 118/78; PULSE 85; BMI 21.5
--- NOTE | 2023-03-17 11:26 | MHC.OFFVIS ---
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 Discussed with patient low FODMAP diet. List of food recommended as well as list of food to avoid given to patient. Will rule out pancreatic insufficiency, pancreatitis. Patient also reports epigastric discomfort. Patient does not drink alcohol. Continue pantoprazole 40 mg twice a day. I will send script for simethicone. Epigastric discomfort Patient reports epigastric discomfort. Continue pantoprazole. Patient reports that he gets this pain right after he eats. Just recently started eating solid food. Patient reports relieve after he is able to belch. Low FODMAP diet discussed with patient avoid dietary triggers. Diarrhea Occasional loose stools. Patient states that he started to get loose stools just couple weeks ago when he started eating solid food. Patient reports that he feels like he moves his bowels completely. Reports to be bloated. Start low FODMAP diet. Patient can also try elimination diet. I will see him in 3 months, sooner on as needed basis. Patient is agreeable to this plan and verbalizes understanding of instructions. He was given the opportunity to ask questions all questions answered. ? Thank you for allowing me participate in his care Plan Orders Orders Pancreatic Elastase-1 Today R10.9 Lipase Today R10.9 Medications New simethicone (Gas Relief (simethicone)) 125 mg PO TID-QID PRN 120 caps 2RF abdominal distention TODAY'S VISIT Patient is here today for follow-up. Since last time I had seen him he has stopped pantoprazole. Patient was hospitalized couple months ago and when he was discharged she stopped taking medication. Patient reports that depending on what he eats he will have epigastric discomfort with abdominal bloating. Patient states that yesterday he had pizza with [employer] and he had epigastric discomfort and he vomited. Patient denies vomiting any other times. However he does reports severe abdominal bloating. We ruled out pancreatic insufficiency and pancreatitis. Patient had that hiatal hernia repair back in December and will have a follow-up with bariatric surgery in April. Patient reports that he will have loose stools postprandially at times. Patient lost 4 lb since last visit. Patient denies melena, hematochezia, unintentional weight loss or ribbon like stools. Patient reports occasional dyspepsia without dysphagia or odynophagia. [facility] Medical History Chronic low back pain Chronic radicular pain of lower back Dyslipidemia GERD (gastroesophageal reflux disease) Gout HTN (hypertension) Leukopenia Prostate hypertrophy Surgical History H/O left inguinal hernia repair History of esophagogastroduodenoscopy (EGD) Hx of colonoscopy Status post cryoablation Family History Father No problems noted. Mother No problems noted. Brother No problems noted. Sister No problems noted. Sister No problems noted. Son No problems noted. Daughter No problems noted. Social History Household Members: None Housing: Apartment Are you a primary adult care manager to a significant other at home: No Do you presently have visiting nurse or other home services: No Alcohol intake: current Alcohol intake frequency: holidays/special occasions only Patient Tobacco Use Status: Never used Tobacco e-Cigarette/Vaping Use: Never Used Second Hand Smoke Exposure: No service: No Current occupational status: employed Current occupation: [employer] Current occupational exposures/hazards: No Cognitive needs: No Hearing needs: No Vision needs: No Review of Systems Const Denies weight gain and Denies weight loss ENT Reports no additional complaints, Denies dysphagia and Denies odynophagia Card Reports no additional complaints Resp Reports no additional complaints GI Reports abdominal pain (epigastric), Denies belching, Denies melena, Reports bloating, Denies change in bowel habits, Denies dysphagia, Denies excessive flatus, Denies dyspepsia, Denies heartburn, Denies diarrhea, Reports loose stools, Reports nausea, Denies odynophagia and Reports vomiting Reports no additional complaints Musc Reports no additional complaints Neuro Reports no additional complaints Psych Reports no additional complaints Endo Reports no additional complaints Physical Exam Vital Signs: Last Vital Signs Pulse 85 03/17/23 11:26 BP 118/78 03/17/23 11:26 BMI result Body Mass Index 21.5 Const General: healthy appearing, no acute distress and well developed Nutritional Appearance: well nourished Orientation/consciousness: patient oriented x3 HEENT Head: Yes normal to inspection, Yes normocephalic and Yes atraumatic Face and sinus: Yes normal facial exam Mouth: Normal oral and palatal mucosa present Throat: Yes posterior oropharynx normal, Yes tonsils normal and Yes uvula midline Eyes General: appearance normal, both eyes and all related structures Neck Neck: Yes normal visual inspection, Yes full ROM and Yes trachea midline Thyroid: Thyroid normal Resp Effort & Inspection: normal respiratory effort, able to speak in complete sentences, no tracheal deviation and symmetric chest movement Auscultation: clear to auscultation bilaterally Cardio Rate: regular rate Heart sounds: S1 normal heart sound present and S2 normal heart sound present GI Inspection: Yes normal to inspection and No distended Palpation (GI): Soft to palpation, not firm, nontender and No hepatosplenomegaly present Auscultation: normal bowel sounds General: Yes no CVA tenderness Back/Spine/Pelvis Back: no CVA tenderness Skin General skin exam: elasticity normal, turgor normal and dry skin Neuro General: patient oriented x3 Psych Appearance: grossly normal Mental Status: mental status grossly normal Speech and movement: Normal speech and movement present Affect: normal affect Results Reviewed Results Reviewed: Laboratory Tests 12/31/22 01/09/23 15:20 15:00 Lipase 24 Stool Pancreat Elastase >500 Assessment & Plan Assessment & Plan (1) Postprandial abdominal bloating: Code(s): R14.0 - Abdominal distension (gaseous) Plan: Continue avoiding dietary triggers. FODMAP diet discussed with patient. Patient was encouraged to try lactose-free protein shakes (2) Epigastric discomfort: Code(s): R10.13 - Epigastric pain Plan: Epigastric discomfort postprandially. Most likely this is related to the food. Patient will restart taking pantoprazole in the morning and take sucralfate at bedtime. Discussed with patient the importance of avoiding dietary triggers and late night snacking. Staying upright for minimum 3 hours after meals discussed with patient. (3) Diarrhea: Code(s): R19.7 - Diarrhea, unspecified Qualifiers: Diarrhea type: functional diarrhea Qualified Code(s): K59.1 - Functional diarrhea Plan: Postprandial loose stools. Low FODMAP diet discussed patient. Avoid dietary triggers. Avoid lactose. Patient himself noticed diarrhea depending on what he eats. We rule out pancreatic insufficiency. Patient will try to take fiber to help him bulk his stools. I will see him in 3 months, sooner on as needed basis. Patient is agreeable to this plan and verbalizes understanding of instructions. He was given the opportunity to ask questions and all questions answered. Thank you for allowing me to participate in his care Medications: New sucralfate 10 mL PO BEDTIME 400 mL 3RF K21.9 - Gastro-esophageal reflux disease without esophagitis Changed From pantoprazole 40 mg PO BID 60 tabs 2RF To pantoprazole 40 mg PO DAILY 30 tabs 2RF Coding Level of Care Code Est Pt Level 4 (34960) Diagnoses Postprandial abdominal bloating R14.0 Epigastric discomfort R10.13 Diarrhea K59.1 Diarrhea type: functional diarrhea Time Spent (min) 40 Comment 25 minutes spent with patient and additional 15 minutes spent reviewing his records
== END 2023-03-17 11:56 | disposition home or self-care (01) ==
PROVIDERS: PCP Nurse Practitioner Family; Visit Provider Nurse Practitioner Family
DX: R14.0 Abdominal distension (gaseous) (principal); R10.13 Epigastric pain; K59.1 Functional diarrhea
CPT/HCPCS: 99214

== ENCOUNTER → 2023-03-17 11:18 | Outpatient (BNVA) | payer OTHER, SELFPAY | PROVIDERS: PCP Nurse Practitioner Family; Visit Provider Nurse Practitioner Family | DX: K59.1 Functional diarrhea (principal); R14.0 Abdominal distension (gaseous); R10.13 Epigastric pain | CPT/HCPCS: 99212 ==

== ENCOUNTER 2023-04-25 08:38 | Outpatient (REF) | payer OTHER, SELFPAY ==
--- NOTE | ~2023-04-25 | FL_ITS ---
EXAMINATION: XR UPPER GI SERIES WITH SMALL BOWEL CLINICAL INFORMATION: Gastroesophageal reflux disease without esophagitis. Assess hiatal hernia repair. COMPARISON: Previous CT of the abdomen and pelvis January 2023 TECHNIQUE: Secret Code Expert film of the abdomen and pelvis was performed. Upper GI was performed using thin and thick barium and effervescent granules. Patient was also administered a barium tablet. Additional thin liquid barium was given. Serial imaging for small bowel follow-through was performed. Spot imaging of the right lower quadrant was performed. FINDINGS: Secret Code Expert film demonstrates large amount of stool in the colon suggestive of constipation. Esophageal motility is normal. There are surgical clips adjacent to the distal thoracic esophagus compatible with a previous surgery. No mucosal irregularity, ulcer, stricture, reflux or hernia is seen. Barium tablet passed freely into the stomach. The stomach and duodenum are normal-appearing. No fold thickening, ulcer, mass or stricture is seen. There is delayed small bowel transit. Oral contrast reached the cecum and right colon at 6 hours. The small bowel mucosal pattern is normal. No fold thickening, mass, or evidence of obstruction. The terminal ileum is normal-appearing. FLUOROSCOPY TIME: 1.1 minutes DOSE AREA PRODUCT: 846 uGy-m2 (microgray-meter squared). Total dose 20 mgy. 57 saved fluoroscopic images and 19 overhead images FL/FL upper GI w air w SBFT IMPRESSION: Postsurgical changes with clips adjacent to the distal thoracic esophagus. The esophagus is otherwise normal. The stomach and duodenum are normal. Delayed small bowel transit with contrast reaching the proximal colon at 6 hours. The small bowel is otherwise normal. Constipation.
== END 2023-04-25 08:39 | disposition home or self-care (01) ==
LOC: HO.XRAY 08:38
PROVIDERS: PCP Nurse Practitioner Family; Visit Provider Surgery
DX: K21.9 Gastro-esophageal reflux disease without esophagitis (principal); K44.9 Diaphragmatic hernia without obstruction or gangrene; Z87.19 Personal history of other diseases of the digestive system; Z98.890 Other specified postprocedural states
CPT/HCPCS: 74246; 74248

== ENCOUNTER → 2023-04-25 08:39 | Outpatient (BNV) | payer OTHER, SELFPAY | PROVIDERS: PCP Nurse Practitioner Family; Visit Provider Radiology Diagnostic Radiology | DX: K44.9 Diaphragmatic hernia without obstruction or gangrene (principal); K21.9 Gastro-esophageal reflux disease without esophagitis | CPT/HCPCS: 74246 ==

== ENCOUNTER 2023-05-02 09:59 | Outpatient (AMB) | payer OTHER, SELFPAY ==
--- NOTE | 2023-05-02 10:02 | MHC.OFFVISWM ---
Intake VS Expanded 05/02/23 10:08 Height 6 ft 4.5 in Weight 172 lb 6.4 oz BMI 20.7 BP 127/88 Blood Pressure Location Rt brachial Blood Pressure Position Sitting Pulse 74 Pulse Source Pulse Oximeter Temp 97.4 F Temperature Source Temporal Artery Scan Pulse Oximetry 99 Oxygen Delivery Method Room Air Body Fat 28.0 Body Fat Percentage 16.2 Free Fat Mass 144.2 Muscle Mass 137.2 Visceral Mass 7.0 Water Mass 96.8 BMR 1,870 Intake Visit Reasons: OV 5MO PO Hiatal Hernia 12/10/22 Allergies No Known Allergies [No Known Allergies*] Allergy (Verified 05/02/23 10:05) HPI HPI Comments History of Present Illness Details Feels better. No GERD Has occasional constipation which causes him abdominal discomfort. Occasional hiccups UGI was reviewed: no recurrent hernia and no GERD PFSH Medical History Chronic low back pain Chronic radicular pain of lower back Dyslipidemia GERD (gastroesophageal reflux disease) Gout HTN (hypertension) Leukopenia Prostate hypertrophy Surgical History Status post cryoablation Hx of colonoscopy History of esophagogastroduodenoscopy (EGD) H/O left inguinal hernia repair Family History Father No problems noted. Mother No problems noted. Brother No problems noted. Sister No problems noted. Sister No problems noted. Son No problems noted. Daughter No problems noted. Social History (Updated 05/02/23 @ 10:06 by Johanna Howe CMA) Household Members: None Housing: Apartment Are you a primary sub acute care nurse to a significant other at home: No Do you presently have visiting nurse or other home services: No Alcohol intake: current Alcohol intake frequency: holidays/special occasions only Patient Tobacco Use Status: Never used Tobacco e-Cigarette/Vaping Use: Never Used Second Hand Smoke Exposure: No service: No Current occupational status: employed Current occupation: [employer] Current occupational exposures/hazards: No Cognitive needs: No Hearing needs: No Vision needs: No Physical Exam Vital Signs: Last Vital Signs Temp 97.4 F 05/02/23 10:08 Pulse 74 05/02/23 10:08 BP 127/88 05/02/23 10:08 Pulse Ox 99 05/02/23 10:08 Oxygen Delivery Method Room Air 05/02/23 10:08 BMI result Body Mass Index 20.7 Assessment & Plan Assessment & Plan (1) S/P repair of paraesophageal hernia: Code(s): Z98.890 - Other specified postprocedural states; Z87.19 - Personal history of other diseases of the digestive system Plan: 1. Continue Sucralfate and Pantoprazole 2. Start Colace for the constipation and 2 tablespoons of Metamucil to the shake of the day. Use one tablespoon of Milk of Magnesia per day when you get constipated and stop it when constipation resolves 3. Continue present diet plan. I emphasized the importance of correlating any symptoms he may experience with food portions and amount of liquids he drinks and adjust them until he has no symptoms 4. Keep foloow up with Dr. Guthrie. Will need a surveillance EGD 6-12 months postoperatively Medications: New docusate sodium (Colace) 100 mg PO DAILY 30 caps 2RF K59.00 - Constipation, unspecified Coding Level of Care Code Est Pt Level 4 (90286) Diagnoses S/P repair of paraesophageal hernia Z98.890; Z87.19 Time Spent (min) 35
[2023-05-02 10:08] VITALS: BP 127/88; PULSE 74; TEMP 36.3; O2SAT 99; BMI 20.7
== END 2023-05-02 10:39 | disposition home or self-care (01) ==
PROVIDERS: PCP Nurse Practitioner Family; Visit Provider Surgery
DX: K59.01 Slow transit constipation (principal); Z68.20 Body mass index [BMI] 20.0-20.9, adult
CPT/HCPCS: 99214

== ENCOUNTER → 2023-05-02 09:59 | Outpatient (BNVA) | payer OTHER, SELFPAY | PROVIDERS: PCP Nurse Practitioner Family; Visit Provider Surgery | DX: Z87.19 Personal history of other diseases of the digestive system (principal); Z98.890 Other specified postprocedural states | CPT/HCPCS: 99212 ==

== ENCOUNTER 2023-06-27 09:16 | Outpatient (AMB) | payer OTHER, SELFPAY ==
--- NOTE | 2023-06-27 09:26 | A.OFFVIS_ITS ---
Intake Vital Signs 06/27/23 09:27 Height 6 ft 4.5 in Weight 174 lb 9.698 oz BMI 21.0 BP 131/100 H Blood Pressure Location Rt brachial Position Sitting Pulse 76 Intake Visit Reasons: 3 Month follow up Intake Note: Ambrose presents to in office visit today in 3 months follow up of a diarrhea. CC: Patient reports he continues to have diarrhea, abdominal cramping. He takes Pepto Bismol and try to eat yogurt and bananas and it gets a little bit better. He also states he vomited once, nausea, and dry heaves. He also report 2 episodes of dark stools and feeling like he has been losing weight. 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 FODMAP diet discussed with patient. Patient was encouraged to try lactose-free protein shakes Epigastric discomfort Epigastric discomfort postprandially. Most likely this is related to the food. Patient will restart taking pantoprazole in the morning and take sucralfate at bedtime. Discussed with patient the importance of avoiding dietary triggers and late night snacking. Staying upright for minimum 3 hours after meals discussed with patient. Diarrhea Postprandial loose stools. Low FODMAP diet discussed patient. Avoid dietary triggers. Avoid lactose. Patient himself noticed diarrhea depending on what he eats. We rule out pancreatic insufficiency. Patient will try to take fiber to help him bulk his stools. I will see him in 3 months, sooner on as needed basis. Patient is agreeable to this plan and verbalizes understanding of instructions. He was given the opportunity to ask questions and all questions answered. ? Thank you for allowing me to participate in his care Plan Medications New sucralfate 10 mL PO BEDTIME 400 mL 3RF K21.9 - Gastro-esophageal reflux disease without esophagitis Changed From pantoprazole 40 mg PO BID 60 tabs 2RF To pantoprazole 40 mg PO DAILY 30 tabs 2RF TODAY'S VISIT Patient is here today for follow-up. Patient reports that since the last time I have seen him he has been experiencing frequent bowel movements. Patient reports that he will have 5-10 bowel movement is a day within 2 hours. Patient denies melena, hematochezia, unintentional weight loss or ribbon like stools, however patient does feel like he lost weight as he does not want to eat anything because he feels like he will have bowel movement right after he eats. Patient experiences postprandial abdominal bloating. Patient states that he is trying to avoid certain food, uses almond milk in his cereal. He does admit to eating fast food occasionally. Patient denies any acid reflux. Reports that for pantoprazole and sucralfate are working well. Patient denies any dyspepsia, dysphagia ordered aphasia. Denies any nausea or vomiting. Patient is tired having frequent bowel movements and sometimes he does not eat anything till the afternoon when he gets home so he does not have a bowel movement when he is working. 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 Mother No problems noted. Brother No problems noted. Sister No problems noted. Sister No problems noted. Son No problems noted. Daughter No problems noted. Social History (Updated 05/02/23 @ 10:06 by Johanna Howe CMA) Household Members: None Housing: Apartment Are you a primary nurse healthcare manager to a significant other at home: No Do you presently have visiting nurse or other home services: No Alcohol intake: current Alcohol intake frequency: holidays/special occasions only Patient Tobacco Use Status: Never used Tobacco e-Cigarette/Vaping Use: Never Used Second Hand Smoke Exposure: No service: No Current occupational status: employed Current occupation: [employer] Current occupational exposures/hazards: No Cognitive needs: No Hearing needs: No Vision needs: No Review of Systems Const Denies weight gain and Denies weight loss ENT Reports no additional complaints, Denies dysphagia and Denies odynophagia Card Reports no additional complaints Resp Reports no additional complaints GI Denies abdominal pain, Denies belching, Denies melena, Denies bloating, Denies change in bowel habits, Reports constipation, Denies dysphagia, Denies excessive flatus, Denies dyspepsia, Denies heartburn, Denies diarrhea, Reports loose stools, Denies nausea, Denies odynophagia and Denies vomiting Reports no additional complaints Musc Reports no additional complaints Neuro Reports no additional complaints Psych Reports no additional complaints Endo Reports no additional complaints Physical Exam Vital Signs: BMI result Body Mass Index 21.0 Const General: healthy appearing, no acute distress and well developed Nutritional Appearance: well nourished Orientation/consciousness: patient oriented x3 HEENT Head: Yes normal to inspection, Yes normocephalic and Yes atraumatic Face and sinus: Yes normal facial exam Mouth: Normal oral and palatal mucosa present Throat: Yes posterior oropharynx normal, Yes tonsils normal and Yes uvula midline Eyes General: appearance normal, both eyes and all related structures Neck Neck: Yes normal visual inspection, Yes full ROM and Yes trachea midline Thyroid: Thyroid normal Resp Effort & Inspection: normal respiratory effort, able to speak in complete sentences, no tracheal deviation and symmetric chest movement Auscultation: clear to auscultation bilaterally Cardio Rate: regular rate Heart sounds: S1 normal heart sound present and S2 normal heart sound present GI Inspection: Yes normal to inspection, No distended and Yes obesity Palpation (GI): Soft to palpation, not firm, nontender and No hepatosplenomegaly present Auscultation: normal bowel sounds General: Yes no CVA tenderness Back/Spine/Pelvis Back: no CVA tenderness Skin General skin exam: elasticity normal, turgor normal and dry skin Neuro General: patient oriented x3 Psych Appearance: grossly normal Mental Status: mental status grossly normal Results Reviewed Results Reviewed: UPPER GI AND SMALL-BOWEL X-RAY 04/25/2023 IMPRESSION: Postsurgical changes with clips adjacent to the distal thoracic esophagus. The esophagus is otherwise normal. The stomach and duodenum are normal. Delayed small bowel transit with contrast reaching the proximal colon at 6 hours. The small bowel is otherwise normal. Constipation. Assessment & Plan Assessment & Plan (1) Constipation: Code(s): K59.00 - Constipation, unspecified Qualifiers: Constipation type: slow transit constipation Qualified Code(s): K59.01 - Slow transit constipation (2) S/P repair of paraesophageal hernia: Code(s): Z98.890 - Other specified postprocedural states; Z87.19 - Personal history of other diseases of the digestive system (3) GERD (gastroesophageal reflux disease): Code(s): K21.9 - Gastro-esophageal reflux disease without esophagitis Qualifiers: Esophagitis bleeding: without hemorrhage Esophagitis presence: with esophagitis Qualified Code(s): K21.00 - Gastro-esophageal reflux disease with esophagitis, without bleeding (4) Epigastric discomfort: Code(s): R10.13 - Epigastric pain (5) Postprandial abdominal bloating: Code(s): R14.0 - Abdominal distension (gaseous) (6) Diarrhea: Code(s): R19.7 - Diarrhea, unspecified Qualifiers: Diarrhea type: functional diarrhea Qualified Code(s): K59.1 - Functional diarrhea Plan Continue pantoprazole and sucralfate. Patient was also encouraged to avoid dietary triggers late night snacking. Patient will try to follow FODMAP diet. List of food recommended as well as list of food to avoid given to him. Patient will start taking Citrucel 2 tablets every day. Patient was encouraged to eat throughout the day and not wait until dinnertime to eat. I will see patient in 3 months, sooner on as needed basis. Patient is agreeable to this plan and verbalizes understanding of instructions. He was given the opportunity to ask questions all questions answered. Thank you for allowing me to participate in his care Medications: New methylcellulose (laxative) (Citrucel) take it with full glass of water 1,000 mg (2 x 500 mg) PO DAILY 90 tabs 2RF K59.00 - Constipation, unspecified Refilled simethicone (Gas Relief (simethicone)) 125 mg PO TID-QID PRN 120 caps 2RF abdominal distention Coding Level of Care Code Est Pt Level 4 (54027) Diagnoses Slow transit constipation K59.01 Constipation type: slow transit constipation S/P repair of paraesophageal hernia Z98.890; Z87.19 Gastroesophageal reflux disease with esophagitis without hemorrhage K21.00 Esophagitis bleeding: without hemorrhage Esophagitis presence: with esophagitis Epigastric discomfort R10.13 Postprandial abdominal bloating R14.0 Functional diarrhea K59.1 Diarrhea type: functional diarrhea Time Spent (min) 35 Comment 20 minutes spent with patient and additional 15 minutes spent reviewing his records
[2023-06-27 09:27] VITALS: BP 131/100; PULSE 76; BMI 21.0
== END 2023-06-27 10:38 | disposition home or self-care (01) ==
PROVIDERS: PCP Nurse Practitioner Family; Visit Provider Nurse Practitioner Family
DX: K59.01 Slow transit constipation (principal); Z98.890 Other specified postprocedural states; Z87.19 Personal history of other diseases of the digestive system; K21.00 Gastro-esophageal reflux disease with esophagitis, without bleeding; R10.13 Epigastric pain; R14.0 Abdominal distension (gaseous); K59.1 Functional diarrhea
CPT/HCPCS: 99214

== ENCOUNTER → 2023-06-27 09:16 | Outpatient (BNVA) | payer OTHER, SELFPAY | PROVIDERS: PCP Nurse Practitioner Family; Visit Provider Nurse Practitioner Family | DX: K59.01 Slow transit constipation (principal); K21.00 Gastro-esophageal reflux disease with esophagitis, without bleeding; K59.1 Functional diarrhea; R10.13 Epigastric pain; R14.0 Abdominal distension (gaseous); Z98.890 Other specified postprocedural states; Z87.19 Personal history of other diseases of the digestive system | CPT/HCPCS: 99212 ==

== ENCOUNTER 2023-08-05 07:29 | Outpatient (AMB) | payer OTHER, SELFPAY ==
--- NOTE | 2023-08-05 07:11 | MHC.OFFVIS ---
Intake Intake Visit Reasons: medication follow up/[phone] Allergies No Known Allergies [No Known Allergies*] Allergy (Verified 06/27/23 09:34) Medication List - Last Reconciled 08/05/23 by Asher Weiss [facility] docusate sodium (Colace) 100 mg PO DAILY hydrochlorothiazide 25 mg PO DAILY methylcellulose (laxative) (Citrucel) 1,000 mg (2 x 500 mg) PO DAILY pantoprazole 40 mg PO DAILY simethicone (Gas Relief (simethicone)) 125 mg PO TID-QID PRN sucralfate 10 mL PO BEDTIME HPI medication follow up/[phone] HPI Details Pt reports hemorrhoids. He was reportedly seen at a walk-in clinic and was given suppositories. Pt reports that these helped minimally. Will refer to general surgery. Pt reports ongoing chronic lower back pain. Will send cyclobenzaprine (which has has used int he past). Denies fever, chills, and dizziness. Pt denies any active GI bleeding,fevers, chills, and is following up with GI for chronic diarrhea. [facility] Medical History (Updated 08/05/23 @ 07:28 by SAMMY [facility]UREL [facility]) Gout Chronic low back pain Prostate hypertrophy Dyslipidemia Leukopenia GERD (gastroesophageal reflux disease) HTN (hypertension) Chronic radicular pain of lower back Surgical History Status post cryoablation Hx of colonoscopy History of esophagogastroduodenoscopy (EGD) H/O left inguinal hernia repair Family History Father No problems noted. Mother No problems noted. Brother No problems noted. Sister No problems noted. Sister No problems noted. Son No problems noted. Daughter No problems noted. Social History Household Members: None Housing: Apartment Are you a primary critical care transport nurse to a significant other at home: No Do you presently have visiting nurse or other home services: No Alcohol intake: current Alcohol intake frequency: holidays/special occasions only Patient Tobacco Use Status: Never used Tobacco e-Cigarette/Vaping Use: Never Used Second Hand Smoke Exposure: No service: No Current occupational status: employed Current occupation: [employer] Current occupational exposures/hazards: No Cognitive needs: No Hearing needs: No Vision needs: No Review of Systems Const Reports as per HPI Physical Exam Const General: cooperative Orientation/consciousness: patient oriented x3 Neuro General: patient oriented x3 Psych Appearance: grossly normal Mental Status: mental status grossly normal Speech and movement: Normal speech and movement present Affect: normal affect Attitude: cooperative Thought process: Normal thought process present Thought content: Normal thought content present Insight: Good insight present (Psych) Judgement: Good judgement present (Psych) Assessment & Plan Assessment & Plan (1) Hemorrhoid: Code(s): K64.9 - Unspecified hemorrhoids Plan: continue current treatments, further referring to GS for eval and treatment (2) Chronic low back pain: Code(s): M54.50 - Low back pain, unspecified; G89.29 - Other chronic pain Plan: muscle relaxor sent Plan The patient agreed to the use of a medical logistics specialist for this encounter. Scribed for SAMMY Blair- by Clarita Adrian medical logistics specialist, on 08/05/2023 at 07:15 EST. Orders: Referrals General Surgery Referral K64.9 - Unspecified hemorrhoids Medications: New cyclobenzaprine 10 mg PO BEDTIME PRN 30 tabs 2RF muscle spasm Refilled docusate sodium (Colace) 100 mg PO DAILY 30 caps 2RF K59.00 - Constipation, unspecified methylcellulose (laxative) (Citrucel) take it with full glass of water 1,000 mg (2 x 500 mg) PO DAILY 90 tabs 2RF K59.00 - Constipation, unspecified simethicone (Gas Relief (simethicone)) 125 mg PO TID-QID PRN 120 caps 2RF abdominal distention hydrochlorothiazide 25 mg PO DAILY 90 tabs 1RF pantoprazole 40 mg PO DAILY 30 tabs 2RF sucralfate 10 mL PO BEDTIME 400 mL 3RF K21.9 - Gastro-esophageal reflux disease without esophagitis Coding Level of Care Code Tele Est Pt Level 3 (20665) Diagnoses Hemorrhoid K64.9 Chronic low back pain M54.50; G89.29
== END 2023-08-05 14:59 | disposition home or self-care (01) ==
LOC: HO.HMGC 07:29
PROVIDERS: PCP Nurse Practitioner Family; Visit Provider Nurse Practitioner Family
DX: K64.9 Unspecified hemorrhoids (principal); M54.50 Low back pain, unspecified; G89.29 Other chronic pain
CPT/HCPCS: 99213

== ENCOUNTER 2023-08-12 13:58 | Outpatient (AMB) | payer OTHER, SELFPAY ==
--- NOTE | 2023-08-12 14:01 | MHC.OFFVIS ---
Intake Vital Signs 08/12/23 14:09 Height 6 ft 4.5 in Weight 164 lb BMI 19.7 BP 130/97 H Blood Pressure Location Rt brachial Position Sitting Pulse 84 Intake Visit Reasons: bleeding hemorrhoids Intake Note: Patient referred by PCP Asher Weiss for bleeding hemorrhoids. Patient c/o: bleeding with BM. Taking colace for constipation. C/o loosing weight. Child Health Associate Required: No Accompanied by: Self / Same As Patient Allergies No Known Allergies [No Known Allergies*] Allergy (Verified 08/12/23 14:02) HPI HPI Comments History of Present Illness Details Patient presents with progressive worsening external hemorrhoidal pain. He has had this 1 weeks time. She will be initial picture and the current status and has demonstrated massive swelling and pain from his hemorrhoids. He was constipated prior to this. Patient had colonoscopy approximately year ago which was within normal limits. He has occasional constipation but no other chronic GI issues or complaints. Chart was reviewed patient evaluated [facility] Medical History Gout Chronic low back pain Prostate hypertrophy Dyslipidemia Leukopenia GERD (gastroesophageal reflux disease) HTN (hypertension) Chronic radicular pain of lower back Surgical History Status post cryoablation Hx of colonoscopy History of esophagogastroduodenoscopy (EGD) H/O left inguinal hernia repair Family History Father No problems noted. Mother No problems noted. Brother No problems noted. Sister No problems noted. Sister No problems noted. Son No problems noted. Daughter No problems noted. Social History Household Members: None Housing: Apartment Are you a primary vp care management to a significant other at home: No Do you presently have visiting nurse or other home services: No Alcohol intake: current Alcohol intake frequency: holidays/special occasions only Patient Tobacco Use Status: Never used Tobacco e-Cigarette/Vaping Use: Never Used Second Hand Smoke Exposure: No service: No Current occupational status: employed Current occupation: [employer] Current occupational exposures/hazards: No Cognitive needs: No Hearing needs: No Vision needs: No Physical Exam Vital Signs: Last Vital Signs Pulse 84 08/12/23 14:09 BP 130/97 H 08/12/23 14:09 BMI result Body Mass Index 19.7 Chest Other: Chest breath sounds bilaterally, HS 1 in 2 GI Other: Abdomen soft, benign. Rectal exam demonstrates massive thrombosed external hemorrhoids with significant swelling, and large size. Rectal exam was deferred secondary to patient's significant discomfort. Assessment & Plan Assessment & Plan (1) Thrombosed external hemorrhoids: Code(s): K64.5 - Perianal venous thrombosis Plan Patient has been attempting conservative therapy with local wound care with progression of symptoms. Risks, benefits, alternatives of external hemorrhoidectomy reviewed with the patient and included but not limited to bleeding, infection, recurrence, numbness, pain, scarring, incontinence and the patient was to proceed. All questions answered. Patient will be tentatively scheduled for tomorrow morning for the surgery. He will be given a light bowel prep to take this evening. All questions answered. Medications: New hydrocodone-acetaminophen 5-325 mg Partial Fill upon patient request. 1 tab PO Q4-6H PRN 30 tabs 0RF pain Coding Level of Care Code New Pt Level 5 (76202) Diagnoses Thrombosed external hemorrhoids K64.5
[2023-08-12 14:09] VITALS: BP 130/97; PULSE 84; BMI 19.7
== END 2023-08-12 14:23 | disposition home or self-care (01) ==
PROVIDERS: PCP Nurse Practitioner Family; Visit Provider Surgery
DX: K64.5 Perianal venous thrombosis (principal)
CPT/HCPCS: 99204

== ENCOUNTER → 2023-08-12 13:58 | Outpatient (BNVA) | payer OTHER, SELFPAY | PROVIDERS: PCP Nurse Practitioner Family; Visit Provider Surgery | DX: K64.5 Perianal venous thrombosis (principal) | CPT/HCPCS: 99202; J1100; J2250; J2310; J2405; J2704; J3010 ==

== ENCOUNTER 2023-08-13 09:54 | Day surgery (SDC) | payer OTHER, SELFPAY ==
[2023-08-13] VITALS (11 sets, daily range): BP systolic 132–169; BP diastolic 92–108; PULSE 63–82; RESP 15–17; TEMP 36.3–36.6; O2SAT 98–100; BMI 20.5
--- NOTE | 2023-08-13 10:45 | HO.ANESPROP2 ---
[facility] Active Problems Active Problems: All Active Problems (Updated 08/13/23 @ 09:58 by Rosangela Morejon RN) Thrombosed external hemorrhoids (Acute) Hemorrhoid (Acute) Constipation (Acute) S/P repair of paraesophageal hernia (Acute) Renal neoplasm (Acute) Diaphragmatic hernia (Acute) GERD (gastroesophageal reflux disease) (Acute) Acute sinusitis (Acute) Elevated serum creatinine (Acute) Abnormal CBC (Acute) Physical exam (Acute) Screening for colon cancer (Acute) Urinary urgency (Acute) Pleurisy (Acute) Abdominal pain (Acute) Chest pain (Acute) Nocturia more than twice per night (Acute) Microscopic hematuria (Acute) Genital warts (Acute) Penile lesion (Acute) High triglycerides (Acute) Swelling of right foot (Acute) Physical exam (Acute) Nerve root compression (Acute) Chronic low back pain (Acute) Gout (Acute) Prostate hypertrophy (Acute) HTN (hypertension) (Acute) Chronic radicular pain of lower back (Acute) Past Medical History Medical History Gout Chronic low back pain Prostate hypertrophy Dyslipidemia Leukopenia GERD (gastroesophageal reflux disease) HTN (hypertension) Chronic radicular pain of lower back Family History Family History Father No problems noted. Mother No problems noted. Brother No problems noted. Sister No problems noted. Sister No problems noted. Son No problems noted. Daughter No problems noted. Family history of problems with anesthesia: No Surgical History Surgical History Status post cryoablation Hx of colonoscopy History of esophagogastroduodenoscopy (EGD) H/O left inguinal hernia repair History of Problems with Anesthesia: No Social History Social History Household Members: None Housing: Apartment Are you a primary ambulatory care nurse to a significant other at home: No Do you presently have visiting nurse or other home services: No Alcohol intake: current Alcohol intake frequency: holidays/special occasions only Patient Tobacco Use Status: Never used Tobacco e-Cigarette/Vaping Use: Never Used Second Hand Smoke Exposure: No Use of substances other than those prescribed or required for medical reasons: No Are you DNR?: No Advance Directives: No Advance Directives Information Provided: Yes service: No Current occupational status: employed Current occupation: [employer] Current occupational exposures/hazards: No Cognitive needs: No Hearing needs: No Vision needs: No Meds Allergies Allergy/AdvReac Type Severity Reaction Status Date / Time No Known Allergies Allergy Verified 08/13/23 09:59 [No Known Allergies*] Active Medications: Current Medications Lactated Ringer's (Lr) 1,000 mls @ 50 mls/hr IVCONT .Q20H BERT Last Admin: 08/13/23 10:21 Dose: 50 mls/hr Cefazolin Sodium/Dextrose (Ancef) 2 gm in 50 mls @ 100 mls/hr IV PREOP ONE Stop: 08/13/23 10:58 Exam Height,Weight and Vital Signs: Height 6 ft 4 in Weight 76.476 kg Last Vital Signs Temp 97.8 F 08/13/23 10:05 Pulse 67 08/13/23 10:05 Resp 15 08/13/23 10:05 BP 135/92 H 08/13/23 10:05 Pulse Ox 98 08/13/23 10:05 O2 Del Method Room Air 08/13/23 10:05 Airway Mallampati Class: I TM Dist: >3cm Loose/Missing/Broken Teeth: No Heart: rrr Lungs: clear Assessment and Plan Final Anesthetic Review Family History of Problems with Anesthesia: No History of Problems with Anesthesia: No NPO: Yes ASA Class: III Final Preanesthetic Review: No Changes in Pt Med Stat, Meds/Allgs Chart Reviewed, Consent Obtained/Reviewed and Anes Risks/Benef Reviewed Patient Risk: Intermediate Procedure Risk: Low Anesthetic Plan Anesthetic Plan: GA Disposition: Standard PACU
--- NOTE | 2023-08-14 12:04 | W.PM.OPN ---
Operative Note Operative Note Date of Service: 08/13/23 Narrative: Preoperative diagnosis: [] Extensive thrombosed hemorrhoids of the 3 and 11 o'clock position lithotomy Postop diagnosis: [] Same Procedure [] external hemorrhoidectomy x2 Surgeon: [] Alex Pattern Cutter: [] Type of Anesthesia: [] General Indication for surgery: [] Massive thrombosed external hemorrhoids at the 03:00 o'clock and 07:00 o'clock positions lithotomy. Findings: [] Patient brought to the operating room, placed on operative table supine position, after adequate level of general anesthesia was induced, patient was placed in lithotomy position and the anorectal area was prepped and draped in usual sterile fashion. Commencing with the 07:00 o'clock hemorrhoid, this was sequentially excised using double firing of mini ligature device. Remaining wound was partially closed using interrupted 2-0 chromic suture. Next a 03:00 o'clock hemorrhoid was similarly approached using double firing of ligature device and excised uneventfully with partial closure using interrupted 2-0 chromic suture. Wounds irrigated, and secured hemostasis. There were infiltrated with 1% lidocaine/0.5% Marcaine. A Gelfoam plug impregnated with 1% lidocaine was also placed. Dressing was applied. Sponge, needle, instrument counts reported correct. Patient tolerated the procedure well and emerged anesthesia stable condition. EBL minimal
== END 2023-08-13 14:07 | disposition home or self-care (01) ==
PROVIDERS: PCP Nurse Practitioner Family; Visit Provider Surgery
PROC: (CPT 46320; principal; 2023-08-13 10:50)
DX: K64.5 Perianal venous thrombosis (principal)
CPT/HCPCS: 46320 ×2; 88304; J0665; J0690; J1100; J2250; J2310; J2405; J2704; J3010

== ENCOUNTER → 2023-08-13 09:54 | Outpatient (BNV) | payer OTHER, SELFPAY | PROVIDERS: PCP Nurse Practitioner Family; Visit Provider Surgery | DX: K64.8 Other hemorrhoids (principal) | CPT/HCPCS: 46250 ==

== ENCOUNTER 2023-08-20 13:47 | Outpatient (AMB) | payer OTHER, SELFPAY ==
[2023-08-20 13:50] VITALS: BP 115/78; PULSE 94
--- NOTE | 2023-08-20 13:50 | A.OFFVIS_ITS ---
Intake Vital Signs 08/20/23 13:50 Weight 165 lb BP 115/78 Blood Pressure Location Rt brachial Position Sitting Pulse 94 Intake Visit Reasons: s/p hemorrhoidectomy, pain/constipation Intake Note: Patient here s/p hemorrhoidectomy on 08-13-22. Patient c/o: severe pain, bleeding. Walnut Dehydrator Operator Required: No Accompanied by: Self / Same As Patient Allergies No Known Allergies [No Known Allergies*] Allergy (Verified 08/20/23 13:51) HPI HPI Comments History of Present Illness Details Patient presents status post hemorrhoidectomy. He has significant incisional pain which is improving. He is passing flatus but no appreciable bowel movement yet. He has tried variety of laxatives and per gives with limited success. PFSH Medical History Gout Chronic low back pain Prostate hypertrophy Dyslipidemia Leukopenia GERD (gastroesophageal reflux disease) HTN (hypertension) Chronic radicular pain of lower back Surgical History Status post cryoablation Hx of colonoscopy History of esophagogastroduodenoscopy (EGD) H/O left inguinal hernia repair Family History Father No problems noted. Mother No problems noted. Brother No problems noted. Sister No problems noted. Sister No problems noted. Son No problems noted. Daughter No problems noted. Social History Household Members: None Housing: Apartment Are you a primary career services representative to a significant other at home: No Do you presently have visiting nurse or other home services: No Alcohol intake: current Alcohol intake frequency: holidays/special occasions only Patient Tobacco Use Status: Never used Tobacco e-Cigarette/Vaping Use: Never Used Second Hand Smoke Exposure: No service: No Current occupational status: employed Current occupation: [employer] Current occupational exposures/hazards: No Cognitive needs: No Hearing needs: No Vision needs: No Physical Exam Vital Signs: Last Vital Signs Pulse 94 08/20/23 13:50 BP 115/78 08/20/23 13:50 GI Other: Abdomen soft. Anorectal wounds are healing very well , clean dry and intact Assessment & Plan Assessment & Plan (1) Status post hemorrhoidectomy: Code(s): Z98.890 - Other specified postprocedural states; Z87.19 - Personal history of other diseases of the digestive system Plan Patient has been given further suggestions regarding stool softeners and per gives. He is to continue local care including Sitz baths and analgesics as needed. He will see me as directed or p.r.n.. All questions answered. Coding Level of Care Code Global (53280) Diagnoses Status post hemorrhoidectomy Z98.890; Z87.19
== END 2023-08-20 14:01 | disposition home or self-care (01) ==
PROVIDERS: PCP Nurse Practitioner Family; Visit Provider Surgery
DX: Z98.890 Other specified postprocedural states (principal); Z87.19 Personal history of other diseases of the digestive system
CPT/HCPCS: 99024

== ENCOUNTER → 2023-08-20 13:47 | Outpatient (BNVA) | payer OTHER, SELFPAY | PROVIDERS: PCP Nurse Practitioner Family; Visit Provider Surgery | DX: Z98.890 Other specified postprocedural states (principal); Z87.19 Personal history of other diseases of the digestive system | CPT/HCPCS: 99212 ==

== ENCOUNTER 2023-08-22 09:52 | Outpatient (AMB) | payer OTHER, SELFPAY ==
--- NOTE | 2023-08-22 10:30 | MHC.OFFVISWM ---
Intake VS Expanded 08/22/23 10:37 BP 153/94 H Blood Pressure Location Rt brachial Blood Pressure Position Sitting Pulse 87 Pulse Source Pulse Oximeter Temp 98.8 F Temperature Source Temporal Artery Scan Pulse Oximetry 98 Oxygen Delivery Method Room Air Height 6 ft 4.5 in Weight 161 lb 12.8 oz BMI 19.4 Body Fat % 11.8 Body Fat Mass 19.0 Fat Free Mass 142.6 Visceral Fat Rating 6.0 Body Water % 59.5 Body Water Mass 96.2 Muscle Mass/Score 135.6 Basal Metabolic Rate/Score 1,833 Intake Visit Reasons: OV 8MO PO Hiatal Hernia 12/10/22 Allergies No Known Allergies [No Known Allergies*] Allergy (Verified 08/22/23 10:39) HPI HPI Comments History of Present Illness Details Weight stable. Denies any GERD. Is doing 2 Celebrate protein shakes (1 scoop in almond milk) and 2 meals Ocassional snack Had a hemorrhoidectomy recently and was not feeling well as he could not go to the bathroom [facility] Medical History Gout Chronic low back pain Prostate hypertrophy Dyslipidemia Leukopenia GERD (gastroesophageal reflux disease) HTN (hypertension) Chronic radicular pain of lower back Surgical History Status post cryoablation Hx of colonoscopy History of esophagogastroduodenoscopy (EGD) H/O left inguinal hernia repair Family History Father No problems noted. Mother No problems noted. Brother No problems noted. Sister No problems noted. Sister No problems noted. Son No problems noted. Daughter No problems noted. Social History Household Members: None Housing: Apartment Are you a primary skin care technician to a significant other at home: No Do you presently have visiting nurse or other home services: No Alcohol intake: current Alcohol intake frequency: holidays/special occasions only Patient Tobacco Use Status: Never used Tobacco e-Cigarette/Vaping Use: Never Used Second Hand Smoke Exposure: No service: No Current occupational status: employed Current occupation: [employer] Current occupational exposures/hazards: No Cognitive needs: No Hearing needs: No Vision needs: No Physical Exam Vital Signs: Last Vital Signs Temp 98.8 F 08/22/23 10:37 Pulse 87 08/22/23 10:37 BP 153/94 H 08/22/23 10:37 Pulse Ox 98 08/22/23 10:37 Oxygen Delivery Method Room Air 08/22/23 10:37 BMI result Body Mass Index 19.4 GI Inspection: Yes normal to inspection and Yes incision (well healed) Assessment & Plan Assessment & Plan (1) S/P repair of paraesophageal hernia: Code(s): Z98.890 - Other specified postprocedural states; Z87.19 - Personal history of other diseases of the digestive system Plan: 1. Continue present diet plan. 2. Advised him to speak with Dr. Johnson since he did not have a bowel movement and does not feel well 3. Follow up with me in December. We will schedule a surveillance EGD after that appointment (2) GERD (gastroesophageal reflux disease): Code(s): K21.9 - Gastro-esophageal reflux disease without esophagitis Qualifiers: Esophagitis presence: with esophagitis Esophagitis bleeding: without hemorrhage Qualified Code(s): K21.00 - Gastro-esophageal reflux disease with esophagitis, without bleeding Plan: 1. Continue present diet plan. 2. Advised him to speak with Dr. Johnson since he did not have a bowel movement and does not feel well 3. Follow up with me in December. We will schedule a surveillance EGD after that appointment Coding Level of Care Code Est Pt Level 3 (49885) Diagnoses S/P repair of paraesophageal hernia Z98.890; Z87.19 Gastroesophageal reflux disease with esophagitis without hemorrhage K21.00 Esophagitis presence: with esophagitis Esophagitis bleeding: without hemorrhage Time Spent (min) 30
[2023-08-22 10:37] VITALS: BP 153/94; PULSE 87; TEMP 37.1; O2SAT 98; BMI 19.4
== END 2023-08-22 11:20 | disposition home or self-care (01) ==
PROVIDERS: PCP Nurse Practitioner Family; Visit Provider Surgery
DX: K20.90 Esophagitis, unspecified without bleeding (principal); Z87.19 Personal history of other diseases of the digestive system
CPT/HCPCS: 99213

== ENCOUNTER → 2023-08-22 09:52 | Outpatient (BNVA) | payer OTHER, SELFPAY | PROVIDERS: PCP Nurse Practitioner Family; Visit Provider Surgery | DX: Z09 Encounter for follow-up examination after completed treatment for conditions other than malignant neoplasm (principal); Z87.19 Personal history of other diseases of the digestive system; K21.00 Gastro-esophageal reflux disease with esophagitis, without bleeding | CPT/HCPCS: 99212 ==

== ENCOUNTER 2023-08-22 11:26 | Outpatient (AMB) | payer OTHER, SELFPAY ==
--- NOTE | 2023-08-22 11:31 | MHC.OFFVIS ---
Intake Vital Signs 08/22/23 11:31 Weight 161 lb Intake Visit Reasons: s/p hemorrhoidectomy, pain/constipation Intake Note: Patient walked in office c/o pain from hemorrhoidectomy. Unable to have BM. Had difficulty sleeping due to pain. Foundation Relations Manager Required: No Accompanied by: Self / Same As Patient Allergies No Known Allergies [No Known Allergies*] Allergy (Verified 08/22/23 11:32) HPI HPI Comments History of Present Illness Details Patient was a workup visit today. He was next door seeing GI for other issues but presented here because he has not moved his bowels yet. He has taken a variety of percutaneous and stool softeners with limited success. [facility] Medical History Gout Chronic low back pain Prostate hypertrophy Dyslipidemia Leukopenia GERD (gastroesophageal reflux disease) HTN (hypertension) Chronic radicular pain of lower back Surgical History Status post cryoablation Hx of colonoscopy History of esophagogastroduodenoscopy (EGD) H/O left inguinal hernia repair Family History Father No problems noted. Mother No problems noted. Brother No problems noted. Sister No problems noted. Sister No problems noted. Son No problems noted. Daughter No problems noted. Social History Household Members: None Housing: Apartment Are you a primary medicare sales executive to a significant other at home: No Do you presently have visiting nurse or other home services: No Alcohol intake: current Alcohol intake frequency: holidays/special occasions only Patient Tobacco Use Status: Never used Tobacco e-Cigarette/Vaping Use: Never Used Second Hand Smoke Exposure: No service: No Current occupational status: employed Current occupation: [employer] Current occupational exposures/hazards: No Cognitive needs: No Hearing needs: No Vision needs: No Physical Exam GI Other: Abdomen soft, benign. Rectal exam demonstrates wounds healing uneventfully. Patient underwent a rectal exam which demonstrated no evidence of any abscess and soft stool at the tip of the finger but no other inspissated or impacted stool. Assessment & Plan Assessment & Plan (1) Status post hemorrhoidectomy: Code(s): Z98.890 - Other specified postprocedural states; Z87.19 - Personal history of other diseases of the digestive system Plan Patient has once again been strongly encouraged to take variety of progressive laxatives and even consider a Fleet's enema. He is scheduled to see me later this month. He will keep that appointment or follow up p.r.n. should he have any issues or complaints. All questions answered Coding Level of Care Code Global (20878) Diagnoses Status post hemorrhoidectomy Z98.890; Z87.19
== END 2023-08-22 11:33 | disposition home or self-care (01) ==
LOC: HO.HGS 11:26
PROVIDERS: PCP Nurse Practitioner Family; Visit Provider Surgery
DX: Z98.890 Other specified postprocedural states (principal); Z87.19 Personal history of other diseases of the digestive system
CPT/HCPCS: 99024

== ENCOUNTER 2023-09-01 13:20 | Outpatient (AMB) | payer OTHER, SELFPAY ==
[2023-09-01 13:24] VITALS: BP 136/98; PULSE 112
--- NOTE | 2023-09-01 13:24 | MHC.OFFVIS ---
Intake Vital Signs 09/01/23 13:24 Weight 164 lb BP 136/98 H Blood Pressure Location Rt brachial Position Sitting Pulse 112 H Intake Visit Reasons: s/p hemorrhoidectomy, pain/constipation Intake Note: Patient here s/p hemorrhoidectomy on 08-13-23. Patient c/o: pain and discofort when sitting. Had bm on Friday morning. Alternating ibuprofen with rx pain meds. Lithographic Stripper Required: No Accompanied by: Self / Same As Patient Allergies No Known Allergies [No Known Allergies*] Allergy (Verified 09/01/23 13:25) HPI HPI Comments History of Present Illness Details Patient's incisional discomfort is improving. He finally has had significant bowel movements. [facility] Medical History Gout Chronic low back pain Prostate hypertrophy Dyslipidemia Leukopenia GERD (gastroesophageal reflux disease) HTN (hypertension) Chronic radicular pain of lower back Surgical History Status post cryoablation Hx of colonoscopy History of esophagogastroduodenoscopy (EGD) H/O left inguinal hernia repair Family History Father No problems noted. Mother No problems noted. Brother No problems noted. Sister No problems noted. Sister No problems noted. Son No problems noted. Daughter No problems noted. Social History Household Members: None Housing: Apartment Are you a primary pediatric critical care nurse to a significant other at home: No Do you presently have visiting nurse or other home services: No Alcohol intake: current Alcohol intake frequency: holidays/special occasions only Patient Tobacco Use Status: Never used Tobacco e-Cigarette/Vaping Use: Never Used Second Hand Smoke Exposure: No service: No Current occupational status: employed Current occupation: [employer] Current occupational exposures/hazards: No Cognitive needs: No Hearing needs: No Vision needs: No Physical Exam Vital Signs: Last Vital Signs Pulse 112 H 09/01/23 13:24 BP 136/98 H 09/01/23 13:24 GI Other: Abdomen is soft. Anorectal wounds healing uneventfully with granulating tissue. No evidence of any infection. Copious stool in the area. Assessment & Plan Assessment & Plan (1) Status post hemorrhoidectomy: Code(s): Z98.890 - Other specified postprocedural states; Z87.19 - Personal history of other diseases of the digestive system Plan Patient has been given local instructions, renewal of analgesics, and will follow-up p.r.n.. Medications: New [Donut seat cushion] As directed 1 ea 0RF K64.5 - Perianal venous thrombosis, Z87.19 - Personal history of other diseases of the digestive system, Z98.890 - Other specified postprocedural states Coding Level of Care Code Global (80171) Diagnoses Status post hemorrhoidectomy Z98.890; Z87.19
== END 2023-09-01 13:41 | disposition home or self-care (01) ==
LOC: HO.HGS 13:20
PROVIDERS: PCP Nurse Practitioner Family; Visit Provider Surgery
DX: Z98.890 Other specified postprocedural states (principal); Z87.19 Personal history of other diseases of the digestive system
CPT/HCPCS: 99024

== ENCOUNTER → 2023-09-01 13:20 | Outpatient (BNVA) | payer OTHER, SELFPAY | PROVIDERS: PCP Nurse Practitioner Family; Visit Provider Surgery | DX: Z87.19 Personal history of other diseases of the digestive system (principal); Z98.890 Other specified postprocedural states | CPT/HCPCS: 99212 ==

== ENCOUNTER 2023-09-01 13:54 | Outpatient (REF) | payer OTHER, SELFPAY ==
--- NOTE | ~2023-09-01 | US_ITS ---
EXAMINATION: US RETROPERITONEAL LIMITED (RENAL ONLY) CLINICAL INFORMATION: Neoplasm of unspecified behavior unspecified kidney. COMPARISON: CT abdomen 01/31/2023. CT left renal biopsy 10/03/2022. MRI abdomen 08/28/2022. Ultrasound abdomen 04/07/2019. TECHNIQUE: Real-time imaging of the kidneys. FINDINGS: RIGHT KIDNEY: 10.0 x 4.2 x 5.1 cm (SAG x AP x TRV). The kidney is normal in size, contour, and echogenicity. Renal cortical thickness is normal. No calculi or focal parenchymal lesions. No hydronephrosis. LEFT KIDNEY: 11.7 x 4.4 x 4.6 cm (SAG x AP x TRV). The kidney is normal in size and echogenicity. Renal cortical thickness is normal. No renal calculi or hydronephrosis. 1.1 x 0.8 x 1.2 cm hypoechoic mass is seen in the mid kidney. This was previously measured 1.6 x 1[address] scan of the abdomen 03/02/2023 and was subsequently biopsied and underwent cryoablation. Pathologic diagnosis of core biopsy was benign renal parenchyma. US/US renal BI IMPRESSION: 1. Normal appearance of the right kidney. 2. 1.2 cm hypoechoic mass in the mid left kidney. This was previously biopsied and underwent cryoablation. Pathologic diagnosis of core biopsy was benign renal parenchyma.
== END 2023-09-01 13:55 | disposition home or self-care (01) ==
LOC: HO.US 13:54
PROVIDERS: PCP Nurse Practitioner Family; Visit Provider Urology
DX: D49.519 Neoplasm of unspecified behavior of unspecified kidney (principal)
CPT/HCPCS: 76775

== ENCOUNTER 2023-09-17 10:46 | Outpatient (AMB) | payer OTHER, SELFPAY ==
--- NOTE | 2023-09-17 10:50 | MHC.OFFVIS ---
Intake Vital Signs 09/17/23 10:53 Height 6 ft 4.5 in Weight 160 lb BMI 19.2 BP 119/91 H Blood Pressure Location Lt brachial Position Sitting Pulse 91 Intake Visit Reasons: pt req sooner appointment Intake Note: Patient follow up for constipation. Patient cc: abdominal noises, constipation with blood, denies any other GI issues. 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 Patient was also encouraged to avoid dietary triggers late night snacking. Patient will try to follow FODMAP diet. List of food recommended as well as list of food to avoid given to him. Patient will start taking Citrucel 2 tablets every day. Patient was encouraged to eat throughout the day and not wait until dinnertime to eat. I will see patient in 3 months, sooner on as needed basis. Patient is agreeable to this plan and verbalizes understanding of instructions. He was given the opportunity to ask questions all questions answered. ? Thank you for allowing me to participate in his care Medications New methylcellulose (laxative) (Citrucel) take it with full glass of water 1,000 mg (2 x 500 mg) PO DAILY 90 tabs 2RF K59.00 Refilled simethicone (Gas Relief (simethicone)) 125 mg PO TID-QID PRN 120 caps 2RF abdominal distention TODAY'S VISIT Patient is here today for follow-up per his request. Patient reports that since his hemorrhoid surgery patient has been constipated. There was 1 time that he did not have a bowel movement for 18 days. Patient currently is using Dulcolax and was given script for MiraLax, however he continues to have constipation. Patient reports that he eats 3 meals a day and feels full very quickly. Patient reports decreased appetite because of feeling constipated all the time. Patient also reports abdominal bloating. Hemorrhoid surgery in August seen his surgeon for follow-up. No complications post surgery. Patient denies any melena or hematochezia. Does admit to rectal pain. Patient states that he is doing frequent Sitz baths with Epsom salt. [facility] Medical History Gout Chronic low back pain Prostate hypertrophy Dyslipidemia Leukopenia GERD (gastroesophageal reflux disease) HTN (hypertension) Chronic radicular pain of lower back Surgical History (Updated 09/17/23 @ 10:51 by Sona Carrillo) Hx of hemorrhoidectomy Status post cryoablation Hx of colonoscopy History of esophagogastroduodenoscopy (EGD) H/O left inguinal hernia repair Family History Father No problems noted. Mother No problems noted. Brother No problems noted. Sister No problems noted. Sister No problems noted. Son No problems noted. Daughter No problems noted. Social History Household Members: None Housing: Apartment Are you a primary pharmacy care coordinator to a significant other at home: No Do you presently have visiting nurse or other home services: No Alcohol intake: current Alcohol intake frequency: holidays/special occasions only Patient Tobacco Use Status: Never used Tobacco e-Cigarette/Vaping Use: Never Used Second Hand Smoke Exposure: No service: No Current occupational status: employed Current occupation: [employer] Current occupational exposures/hazards: No Cognitive needs: No Hearing needs: No Vision needs: No Review of Systems Const Denies weight gain and Denies weight loss ENT Reports no additional complaints, Denies dysphagia and Denies odynophagia Card Reports no additional complaints Resp Reports no additional complaints GI Denies abdominal pain, Denies belching, Denies melena, Denies bloating, Reports constipation, Denies dysphagia, Denies excessive flatus, Denies dyspepsia, Denies heartburn, Denies diarrhea, Denies loose stools, Denies nausea, Denies odynophagia and Denies vomiting Reports no additional complaints Musc Reports no additional complaints Neuro Reports no additional complaints Psych Reports no additional complaints Endo Reports no additional complaints Physical Exam Vital Signs: Last Vital Signs Pulse 91 09/17/23 10:53 BP 119/91 H 09/17/23 10:53 BMI result Body Mass Index 19.2 Const General: healthy appearing, no acute distress and well developed Nutritional Appearance: underweight Orientation/consciousness: patient oriented x3 Resp Effort & Inspection: normal respiratory effort, able to speak in complete sentences, no tracheal deviation and symmetric chest movement Auscultation: clear to auscultation bilaterally Cardio Rate: regular rate GI Inspection: Yes normal to inspection and No distended Palpation (GI): Soft to palpation, not firm, nontender and No hepatosplenomegaly present Auscultation: normal bowel sounds General: Yes no CVA tenderness Back/Spine/Pelvis Back: no CVA tenderness Skin General skin exam: elasticity normal, turgor normal and dry skin Neuro General: patient oriented x3 Psych Appearance: grossly normal Mental Status: mental status grossly normal Assessment & Plan Assessment & Plan (1) Constipation: Code(s): K59.00 - Constipation, unspecified Qualifiers: Constipation type: slow transit constipation Qualified Code(s): K59.01 - Slow transit constipation (2) S/P repair of paraesophageal hernia: Code(s): Z98.890 - Other specified postprocedural states; Z87.19 - Personal history of other diseases of the digestive system (3) GERD (gastroesophageal reflux disease): Code(s): K21.9 - Gastro-esophageal reflux disease without esophagitis Qualifiers: Esophagitis bleeding: without hemorrhage Esophagitis presence: with esophagitis Qualified Code(s): K21.00 - Gastro-esophageal reflux disease with esophagitis, without bleeding (4) Status post hemorrhoidectomy: Code(s): Z98.890 - Other specified postprocedural states; Z87.19 - Personal history of other diseases of the digestive system Plan Patient reports that he was trying Linzess, was given to him by his sister, however patient states that he did not have any effect from that. Patient is having trouble moving his bowels. Increase fluid intake and activity to promote better bowel motility. Patient will start taking Colace 2 capsules and Dulcolax tablets in the evening. He can continue take MiraLax in the morning. Patient is requesting information about low FODMAP diet. Does report of frequent abdominal bloating. Patient was encouraged to eat frequent smaller meals. 5-6 meals a day with high calories to help him gain weight. Continue pantoprazole daily. Sucralfate on as-needed basis. That could be contributing to his constipation as well. I will see patient in 5 weeks, sooner on as needed basis. Patient is agreeable to this plan and verbalizes understanding of instructions was given the opportunity to ask questions all questions answered. Thank you for allowing me to participate in his care Medications: New bisacodyl (Dulcolax (bisacodyl)) 10 mg (2 x 5 mg) PO BEDTIME 180 tabs 4RF Changed From docusate sodium (Colace) 100 mg PO DAILY 90 caps 2RF K59.00 - Constipation, unspecified To docusate sodium (Colace) 200 mg (2 x 100 mg) PO BEDTIME 90 caps 2RF K59.00 - Constipation, unspecified Coding Level of Care Code Est Pt Level 3 (16671) Diagnoses Slow transit constipation K59.01 Constipation type: slow transit constipation S/P repair of paraesophageal hernia Z98.890; Z87.19 Gastroesophageal reflux disease with esophagitis without hemorrhage K21.00 Esophagitis bleeding: without hemorrhage Esophagitis presence: with esophagitis Status post hemorrhoidectomy Z98.890; Z87.19 Time Spent (min) 25 Comment 15 minutes spent with patient and additional 10 minutes spent reviewing his records
[2023-09-17 10:53] VITALS: BP 119/91; PULSE 91; BMI 19.2
== END 2023-09-17 11:31 | disposition home or self-care (01) ==
PROVIDERS: PCP Nurse Practitioner Family; Visit Provider Nurse Practitioner Family
DX: K59.01 Slow transit constipation (principal); Z98.890 Other specified postprocedural states; Z87.19 Personal history of other diseases of the digestive system; K21.00 Gastro-esophageal reflux disease with esophagitis, without bleeding
CPT/HCPCS: 99213

== ENCOUNTER → 2023-09-17 10:46 | Outpatient (BNVA) | payer OTHER, SELFPAY | PROVIDERS: PCP Nurse Practitioner Family; Visit Provider Nurse Practitioner Family | DX: K59.01 Slow transit constipation (principal); K21.00 Gastro-esophageal reflux disease with esophagitis, without bleeding; Z98.890 Other specified postprocedural states; Z87.19 Personal history of other diseases of the digestive system | CPT/HCPCS: 99212 ==

== ENCOUNTER 2023-10-22 10:29 | Outpatient (AMB) | payer OTHER, SELFPAY ==
[2023-10-22 10:32] VITALS: BP 139/95; PULSE 57; BMI 19.7
--- NOTE | 2023-10-22 10:32 | MHC.OFFVIS ---
Intake Vital Signs 10/22/23 10:32 Height 6 ft 4.5 in Weight 164 lb 0.383 oz BMI 19.7 BP 139/95 H Blood Pressure Location Lt brachial Position Sitting Pulse 57 Pulse Source Pulse Oximeter Intake Visit Reasons: 5 week follow up Intake Note: Pt presents to the office today for a 5 week follow up for constipation. Pt states his constipation is doing better with the medications. Pt states he has a bowel movement everyday.Pt states he will have diarrhea every couple of days. Pt denies any other GI concerns. Allergies No Known Allergies [No Known Allergies*] Allergy (Verified 10/22/23 10:32) HPI 5 week follow up HPI Details LAST VISIT Constipation S/P repair of paraesophageal hernia GERD (gastroesophageal reflux disease) Status post hemorrhoidectomy Plan Patient reports that he was trying Linzess, was given to him by his sister, however patient states that he did not have any effect from that. Patient is having trouble moving his bowels. Increase fluid intake and activity to promote better bowel motility. Patient will start taking Colace 2 capsules and Dulcolax tablets in the evening. He can continue take MiraLax in the morning. Patient is requesting information about low FODMAP diet. Does report of frequent abdominal bloating. Patient was encouraged to eat frequent smaller meals. 5-6 meals a day with high calories to help him gain weight. Continue pantoprazole daily. Sucralfate on as-needed basis. That could be contributing to his constipation as well. I will see patient in 5 weeks, sooner on as needed basis. Patient is agreeable to this plan and verbalizes understanding of instructions was given the opportunity to ask questions all questions answered. ? Thank you for allowing me to participate in his care Medications New bisacodyl (Dulcolax (bisacodyl)) 10 mg (2 x 5 mg) PO BEDTIME 180 tabs 4RF Changed Changed From docusate sodium (Colace) 100 mg PO DAILY 90 caps 2RF K59.00 Changed To docusate sodium (Colace) 200 mg (2 x 100 mg) PO BEDTIME 90 caps 2RF K59.00 TODAY'S VISIT Patient is here today for follow-up. Patient reports that he is feeling much better now. Patient is taking 2 Colace and 2 Senokot every evening and reports that he has normal bowel movements. Patient denies any rectal pain. Denies any melena, hematochezia, unintentional weight weight loss or ribbon like stools. However patient does report that he might have diarrhea every few days but he believes that it is from the medication. Patient continues to be under weight. Tries to eat minimum 3 meals a day. Patient reports that he has a good appetite. Denies any dyspepsia, dysphagia or odynophagia. Patient denies any GI concerning symptoms today. [facility] Medical History Gout Chronic low back pain Prostate hypertrophy Dyslipidemia Leukopenia GERD (gastroesophageal reflux disease) HTN (hypertension) Chronic radicular pain of lower back Surgical History Hx of hemorrhoidectomy Status post cryoablation Hx of colonoscopy History of esophagogastroduodenoscopy (EGD) H/O left inguinal hernia repair Family History Father No problems noted. Mother No problems noted. Brother No problems noted. Sister No problems noted. Sister No problems noted. Son No problems noted. Daughter No problems noted. Social History Household Members: None Housing: Apartment Are you a primary healthcare recruiter to a significant other at home: No Do you presently have visiting nurse or other home services: No Alcohol intake: current Alcohol intake frequency: holidays/special occasions only Patient Tobacco Use Status: Never used Tobacco e-Cigarette/Vaping Use: Never Used Second Hand Smoke Exposure: No service: No Current occupational status: employed Current occupation: [employer] Current occupational exposures/hazards: No Cognitive needs: No Hearing needs: No Vision needs: No Review of Systems Const Denies weight gain and Denies weight loss ENT Reports no additional complaints, Denies dysphagia and Denies odynophagia Card Reports no additional complaints Resp Reports no additional complaints GI Denies abdominal pain, Denies belching, Denies melena, Denies bloating, Denies change in bowel habits, Denies dysphagia, Denies excessive flatus, Denies dyspepsia, Denies heartburn, Denies diarrhea, Reports loose stools (Occasional), Denies nausea, Denies odynophagia and Denies vomiting Reports no additional complaints Musc Reports no additional complaints Neuro Reports no additional complaints Psych Reports no additional complaints Endo Reports no additional complaints Physical Exam Vital Signs: Last Vital Signs Pulse 57 10/22/23 10:32 BP 139/95 H 10/22/23 10:32 BMI result Body Mass Index 19.7 Const General: no acute distress Orientation/consciousness: patient oriented x3 Resp Effort & Inspection: normal respiratory effort, able to speak in complete sentences, no tracheal deviation and symmetric chest movement Auscultation: clear to auscultation bilaterally Cardio Rate: regular rate GI Inspection: Yes normal to inspection and No distended Palpation (GI): Soft to palpation, not firm, nontender and No hepatosplenomegaly present Auscultation: normal bowel sounds General: Yes no CVA tenderness Back/Spine/Pelvis Back: no CVA tenderness Skin General skin exam: elasticity normal, turgor normal and dry skin Neuro General: patient oriented x3 Psych Appearance: grossly normal Mental Status: mental status grossly normal Assessment & Plan Assessment & Plan (1) Constipation: Code(s): K59.00 - Constipation, unspecified Qualifiers: Constipation type: slow transit constipation Qualified Code(s): K59.01 - Slow transit constipation (2) S/P repair of paraesophageal hernia: Code(s): Z98.890 - Other specified postprocedural states; Z87.19 - Personal history of other diseases of the digestive system (3) GERD (gastroesophageal reflux disease): Code(s): K21.9 - Gastro-esophageal reflux disease without esophagitis Qualifiers: Esophagitis bleeding: without hemorrhage Esophagitis presence: with esophagitis Qualified Code(s): K21.00 - Gastro-esophageal reflux disease with esophagitis, without bleeding (4) Status post hemorrhoidectomy: Code(s): Z98.890 - Other specified postprocedural states; Z87.19 - Personal history of other diseases of the digestive system Plan Continue current PPI treatment and may use sucralfate at bedtime. Continue avoiding dietary triggers and late night snacking. Staying upright for minimum 3 hours after meals discussed with patient. Patient was encouraged to eat smaller meals and more often. Drink protein shakes in between his meals. Continue senna and Colace. Patient may take 1 instead of 2 Colace capsules. Patient was encouraged to increase fluid intake and activity to promote better bowel motility. Patient will follow-up in 3 months, sooner on as needed basis. Patient was given the opportunity to ask questions and all questions answered. Thank you for allowing me to participate in his care Medications: New sennosides (Natural Senna Laxative) 17.2 mg (2 x 8.6 mg) PO BEDTIME 180 tabs 3RF constipation K59.00 - Constipation, unspecified Changed From docusate sodium (Colace) 200 mg (2 x 100 mg) PO BEDTIME 90 caps 2RF K59.00 - Constipation, unspecified To docusate sodium (Colace) 100 mg PO BEDTIME 90 caps 2RF K59.00 - Constipation, unspecified Discontinued bisacodyl (Dulcolax (bisacodyl)) Discontinued Reason: Doctor's Order 10 mg (2 x 5 mg) PO BEDTIME 180 tabs 4RF Coding Level of Care Code Est Pt Level 3 (49698) Diagnoses Slow transit constipation K59.01 Constipation type: slow transit constipation S/P repair of paraesophageal hernia Z98.890; Z87.19 Gastroesophageal reflux disease with esophagitis without hemorrhage K21.00 Esophagitis bleeding: without hemorrhage Esophagitis presence: with esophagitis Status post hemorrhoidectomy Z98.890; Z87.19 Time Spent (min) 25 Comment 15 minutes spent with patient and additional 10 minutes spent reviewing his records
== END 2023-10-22 10:59 | disposition home or self-care (01) ==
PROVIDERS: PCP Nurse Practitioner Family; Visit Provider Nurse Practitioner Family
DX: K59.01 Slow transit constipation (principal); Z98.890 Other specified postprocedural states; Z87.19 Personal history of other diseases of the digestive system; K21.00 Gastro-esophageal reflux disease with esophagitis, without bleeding
CPT/HCPCS: 99213

== ENCOUNTER → 2023-10-22 10:29 | Outpatient (BNVA) | payer OTHER, SELFPAY | PROVIDERS: PCP Nurse Practitioner Family; Visit Provider Nurse Practitioner Family | DX: K59.01 Slow transit constipation (principal); K21.9 Gastro-esophageal reflux disease without esophagitis; Z87.19 Personal history of other diseases of the digestive system; Z79.899 Other long term (current) drug therapy | CPT/HCPCS: 99212 ==

== ENCOUNTER → 2023-10-31 10:36 | Outpatient (BNVA) | payer SELFPAY | PROVIDERS: PCP Nurse Practitioner Family; Visit Provider Physician Assistant | DX: Z02.79 Encounter for issue of other medical certificate (principal) ==

== ENCOUNTER 2024-01-21 11:24 | Outpatient (AMB) | payer OTHER, SELFPAY ==
--- NOTE | 2024-01-21 11:34 | MHC.OFFVIS ---
Vital Signs 01/21/24 11:39 Height 6 ft 4.5 in Weight 169 lb 12.095 oz BMI 20.4 BP 134/92 H Blood Pressure Location Rt brachial Position Sitting Pulse 62 Pulse Source Pulse Oximeter Pulse Oximetry (%) 100 Oxygen Delivery Method Room Air Intake Visit Reasons: 3 month follow up Intake Note: Ambrose presents in office today for scheduled 3 mos FUV. CC; Pt reports that they are still having intermittent success with their treatments. Pt states that they are still experiencing cramping, particularly when having a BM. Pt also reports that they have seen an increase in sx surrounding dairy consumption. 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 Continue avoiding dietary triggers and late night snacking. Staying upright for minimum 3 hours after meals discussed with patient. Patient was encouraged to eat smaller meals and more often. Drink protein shakes in between his meals. Continue senna and Colace. Patient may take 1 instead of 2 Colace capsules. Patient was encouraged to increase fluid intake and activity to promote better bowel motility. Patient will follow-up in 3 months, sooner on as needed basis. Patient was given the opportunity to ask questions and all questions answered. ? Thank you for allowing me to participate in his care Medications New sennosides (Natural Senna Laxative) 17.2 mg (2 x 8.6 mg) PO BEDTIME 180 tabs 3RF constipation K59.00 Changed Changed From docusate sodium (Colace) 200 mg (2 x 100 mg) PO BEDTIME 90 caps 2RF K59.00 Changed To docusate sodium (Colace) 100 mg PO BEDTIME 90 caps 2RF K59.00 Discontinued bisacodyl (Dulcolax (bisacodyl)) Discontinued Reason: Doctor's Order 10 mg (2 x 5 mg) PO BEDTIME 180 tabs 4RF TODAY'S VISIT Patient is here today for follow-up. Patient reports that he has been doing significantly better, however he noticed that whenever he has dairy he will immediately have diarrhea. Patient was away and was unable to purchase lactose free milk and had regular milk with cereal in immediately after breakfast he had loose stools and cramping. Patient reports that he usually is doing well. Feels like his hemorrhoids are healing well and is rectum is not sore anymore. Patient reports that his bowels are more formed now. He keeps taking Senokot 2 tablets and Colace at bedtime. Occasionally he will use MiraLax in the morning if no bowel movement in 1 or 2 days. Patient denies any melena, hematochezia. Reports that pantoprazole and sucralfate have been working. No longer has epigastric pain or reflux. Patient denies eating late at night. Denies dyspepsia, dysphagia or odynophagia. [facility] Medical History Gout Chronic low back pain Prostate hypertrophy Dyslipidemia Leukopenia GERD (gastroesophageal reflux disease) HTN (hypertension) Chronic radicular pain of lower back Surgical History Hx of hemorrhoidectomy Status post cryoablation Hx of colonoscopy History of esophagogastroduodenoscopy (EGD) H/O left inguinal hernia repair Family History Father No problems noted. Mother No problems noted. Brother No problems noted. Sister No problems noted. Sister No problems noted. Son No problems noted. Daughter No problems noted. Social History Household Members: None Housing: Apartment Are you a primary healthcare network consultant to a significant other at home: No Do you presently have visiting nurse or other home services: No Alcohol intake: current Alcohol intake frequency: holidays/special occasions only Patient Tobacco Use Status: Never used Tobacco e-Cigarette/Vaping Use: Never Used Second Hand Smoke Exposure: No service: No Current occupational status: employed Current occupation: [employer] Current occupational exposures/hazards: No Cognitive needs: No Hearing needs: No Vision needs: No Review of Systems Const Denies weight gain and Denies weight loss ENT Reports no additional complaints, Denies dysphagia and Denies odynophagia Card Reports no additional complaints Resp Reports no additional complaints GI Denies abdominal pain, Denies belching, Denies melena, Denies bloating, Denies change in bowel habits, Denies dysphagia, Denies excessive flatus, Denies dyspepsia, Denies heartburn, Denies diarrhea, Denies loose stools, Denies nausea, Denies odynophagia and Denies vomiting Reports no additional complaints Musc Reports no additional complaints Neuro Reports no additional complaints Psych Reports no additional complaints Endo Reports no additional complaints Physical Exam Vital Signs: Last Vital Signs Pulse 62 01/21/24 11:39 BP 134/92 H 01/21/24 11:39 Pulse Ox 100 01/21/24 11:39 Oxygen Delivery Method Room Air 01/21/24 11:39 BMI result Body Mass Index 20.4 Const General: no acute distress Orientation/consciousness: patient oriented x3 Resp Effort & Inspection: normal respiratory effort, able to speak in complete sentences, no tracheal deviation and symmetric chest movement Auscultation: clear to auscultation bilaterally Cardio Rate: regular rate GI Inspection: Yes normal to inspection and No distended Palpation (GI): Soft to palpation, not firm, nontender and No hepatosplenomegaly present Auscultation: normal bowel sounds General: Yes no CVA tenderness Back/Spine/Pelvis Back: no CVA tenderness Skin General skin exam: elasticity normal, turgor normal and dry skin Neuro General: patient oriented x3 Psych Appearance: grossly normal Mental Status: mental status grossly normal Assessment & Plan Assessment & Plan (1) Constipation: Code(s): K59.00 - Constipation, unspecified Category: Medical Qualifiers: Constipation type: slow transit constipation Qualified Code(s): K59.01 - Slow transit constipation (2) S/P repair of paraesophageal hernia: Code(s): Z98.890 - Other specified postprocedural states; Z87.19 - Personal history of other diseases of the digestive system Category: Medical (3) GERD (gastroesophageal reflux disease): Code(s): K21.9 - Gastro-esophageal reflux disease without esophagitis Category: Medical Qualifiers: Esophagitis presence: with esophagitis Esophagitis bleeding: without hemorrhage Qualified Code(s): K21.00 - Gastro-esophageal reflux disease with esophagitis, without bleeding (4) Status post hemorrhoidectomy: Code(s): Z98.890 - Other specified postprocedural states; Z87.19 - Personal history of other diseases of the digestive system Category: Medical Plan Continue current bowel management. Increase fluid intake and activity to promote better bowel motility. Continue current PPI dose. Continues sucralfate. Discussed with patient the importance of avoiding dietary triggers and late night snacking. Staying upright for minimum 3 hours after meals discussed with patient. Patient will avoid straining. May use Epsom salts for Sitz baths. Follow-up with his surgeon regarding any rectal pain or discomfort on as needed basis. Patient will follow-up in the office in 6 months, sooner if needed. He is agreeable to this plan and verbalizes understanding of instructions. He was given the opportunity to ask questions and all questions answered. Coding Level of Care Code Est Pt Level 3 (33028) Diagnoses Slow transit constipation K59.01 Constipation type: slow transit constipation S/P repair of paraesophageal hernia Z98.890; Z87.19 Gastroesophageal reflux disease with esophagitis without hemorrhage K21.00 Esophagitis presence: with esophagitis Esophagitis bleeding: without hemorrhage Status post hemorrhoidectomy Z98.890; Z87.19 Time Spent (min) 25 Comment 15 minutes spent with patient and additional 10 minutes spent reviewing his records
[2024-01-21 11:39] VITALS: BP 134/92; PULSE 62; O2SAT 100; BMI 20.4
== END 2024-01-21 12:15 | disposition home or self-care (01) ==
PROVIDERS: PCP Nurse Practitioner Family; Visit Provider Nurse Practitioner Family
DX: K59.01 Slow transit constipation (principal); Z98.890 Other specified postprocedural states; Z87.19 Personal history of other diseases of the digestive system; K21.00 Gastro-esophageal reflux disease with esophagitis, without bleeding
CPT/HCPCS: 99213

== ENCOUNTER → 2024-01-21 11:24 | Outpatient (BNVA) | payer OTHER, SELFPAY | PROVIDERS: PCP Nurse Practitioner Family; Visit Provider Nurse Practitioner Family | DX: K59.01 Slow transit constipation (principal); K21.00 Gastro-esophageal reflux disease with esophagitis, without bleeding; Z87.19 Personal history of other diseases of the digestive system; Z98.890 Other specified postprocedural states | CPT/HCPCS: 99212 ==

== ENCOUNTER 2024-03-04 11:00 | Outpatient (AMB) | payer OTHER, SELFPAY ==
--- NOTE | 2024-03-04 11:24 | MHC.PC.OV ---
Vital Signs 03/04/24 11:27 Weight 169 lb BP 124/80 Blood Pressure Location Rt brachial Position Sitting Pulse 62 Pulse Source Pulse Oximeter Pulse Oximetry (%) 98 Oxygen Delivery Method Room Air Intake Visit Reasons: Annual PE- NEEDS PHQ9 Intake Note: Patient here for physical exam. pt would like to talk about left hand being bothersome which has been present for a few months. Colon:2021 Allergies No Known Allergies [No Known Allergies*] Allergy (Verified 03/04/24 12:07) Medication List - Last Reconciled 03/04/24 by sAher Weiss, CONVEYOR TECHNICIAN- bisacodyl (Laxative (bisacodyl)) mg PO colchicine 1.2mg x1, then .6mg by mouth 1 hr later 10 days cyclobenzaprine 10 mg PO BEDTIME PRN docusate sodium (Colace) 100 mg PO BEDTIME [Donut seat cushion As directed] hydrochlorothiazide 25 mg PO DAILY hydrocodone-acetaminophen 5-325 mg 1 tab feeding tube Q4-6H PRN magnesium citrate 150 mL PO DAILY PRN methylcellulose (laxative) (Citrucel) 1,000 mg (2 x 500 mg) PO DAILY pantoprazole 40 mg PO DAILY polyethylene glycol 3350 (Gavilax) grams PO sennosides (Natural Senna Laxative) 17.2 mg (2 x 8.6 mg) PO BEDTIME simethicone (Gas Relief (simethicone)) 125 mg PO TID-QID PRN sucralfate 10 mL PO BEDTIME Tobacco use date assessed: 03/04/24 Dental Screening Dental Screen Date: 03/04/24 Did you have a dental visit in the last 12 months?: Yes Did you have a dental problem in the last 6 months where you did not have access to dental care?: No Was dental information given to patient?: Patient has dentist HPI Annual PE- NEEDS PHQ9 HPI Details Pt is here for a PE. Will order labs. Colon screen is up to date. Due for PSA, will order. Denies dribbling with urination, weak stream, and frequent nocturia. sees GI for constipation. Pt has chronic lower back pain. Will refer to [facility], as requested by pt. Denies any signs of cauda equina. [facility] Medical History Gout Chronic low back pain Prostate hypertrophy Dyslipidemia Leukopenia GERD (gastroesophageal reflux disease) HTN (hypertension) Chronic radicular pain of lower back Surgical History Hx of hemorrhoidectomy Status post cryoablation Hx of colonoscopy History of esophagogastroduodenoscopy (EGD) H/O left inguinal hernia repair Family History Father No problems noted. Mother No problems noted. Brother No problems noted. Sister No problems noted. Sister No problems noted. Son No problems noted. Daughter No problems noted. Social History Household Members: None Housing: Apartment Are you a primary hospice spiritual care coordinator to a significant other at home: No Do you presently have visiting nurse or other home services: No Alcohol intake: current Alcohol intake frequency: holidays/special occasions only Patient Tobacco Use Status: Never used Tobacco e-Cigarette/Vaping Use: Never Used Second Hand Smoke Exposure: No service: No Current occupational status: employed Current occupation: [employer] Current occupational exposures/hazards: No Cognitive needs: No Hearing needs: No Vision needs: No Questionnaire PHQ-9 Over the last 2 weeks, how often have you been bothered by any of the following problems? 1. Little interest or pleasure in doing things: not at all 2. Feeling down, depressed, or hopeless: not at all 3. Trouble falling or staying asleep, or sleeping too much: not at all 4. Feeling tired or having little energy: not at all 5. Poor appetite or overeating: not at all 6. Feeling bad about yourself - or that you are a failure or have let yourself or your family down: not at all 7. Trouble concentrating on things, such as reading the newspaper or watching television: not at all 8. Moving or speaking so slowly that other people could have noticed. Or the opposite - being so fidgety or restless that you have been moving around a lot more than usual: not at all 9. Thoughts that you would be better off or of hurting yourself in some way: not at all Total score: 0 Depression Screening Interpretation: Negative Depression Screening Done: Yes 90912 - PHQ-9 Billing: Yes Source: Developed by Drs. Darnell Gallegos, Leslie Frazier, Jermain Bryan and colleagues, with an educational kiran from [employer]. Thrive Questionnaire Date Thrive assessed: 02/26/24 I am a: Patient What is your living situation today?: I have a steady place to live Within the past 12 months, did the food you bought not last and you didn't have the money to get more?: Never true Within the past 12 months, did you worry whether your food would run out before you got money to buy more?: Never true Do you have trouble paying for medicines?: No Do you have trouble getting transportation to medical appointments?: No Do you have trouble paying your heating and electricity bill?: No Do you have trouble taking care of your child, family member or friend?: No Do you have trouble with day-to-day activities such as bathing, preparing meals, shopping, managing finances, etc.?: No Are you currently unemployed and looking for a job?: No Are you interested in more education?: No Please select the resources that you would like help with: Housing/Care Home Currently or been in a relationship where the following occur: No concerns reported THRIVE Score: 0 AUDIT C Alcohol Use Questionnaire (AUDIT-C) 1. How often do you have a drink containing alcohol?: Monthly or less 2. How many drinks containing alcohol do you have on a typical day when you are drinking?: 1 or 2 3. How often do you have six or more drinks on one occasion?: Never Total Score: 1 MAJO-7 AMB Questionnaire MAJO-7 Date MAJO - 7 assessed: 03/04/24 Feeling nervous, anxious, or on edge: 0 = Not at all Not being able to stop or control worryin = Not at all Worrying too much about different things: 1 = Several days Trouble relaxin = Not at all Being so restless that it is hard to sit still: 0 = Not at all Becoming easily annoyed or irritable: 0 = Not at all Feeling afraid as if something awful might happen: 0 = Not at all Total MAJO-7 score (0-4 normal; 5-9 mild; 10-14 moderate; 15-21 severe): 1 Source: Developed by Drs. Darnell Gallegos, Leslie Frazier, Jermain Bryan and colleagues, with an educational kiran from [employer]. MAJO-7 Assessment Billing MAJO-7 Assessment Tool: MAJO-7 Assessment 35824 Review of Systems Const Denies chills and Denies fever(s) Eyes Denies blurry vision ENT Denies vertigo, Denies dizziness and Denies sore throat Card Denies chest pain at rest, Denies chest pain with activity, Denies diaphoresis, Denies dyspnea and Denies dyspnea on exertion Resp Denies cough, Denies dyspnea, Denies dyspnea on exertion and Denies wheezing GI Denies abdominal pain, Denies melena, Denies hematochezia, Denies constipation, Denies diarrhea and Denies loose stools Denies hematuria Musc Denies numbness and Denies tingling Skin/Breast Denies lesions Neuro Denies vertigo, Denies dizziness, Denies numbness and Denies tingling Psych Denies anxiety, Denies depression, Denies homicidal ideation, Denies suicidal ideation and Denies other (substance abuse) Aller/Immun Denies wheezing Physical exam (Primary Care) Vital Signs: Last Vital Signs Pulse 62 03/04/24 11:27 BP 124/80 03/04/24 11:27 Pulse Ox 98 03/04/24 11:27 Oxygen Delivery Method Room Air 03/04/24 11:27 Tobacco/Smoking Status: Tobacco use Status Tobacco use date assessed 03/04/24 03/04/24 11:30 Patient Tobacco Use Status Never used Tobacco 03/04/24 11:26 e-Cigarette/Vaping Use Never Used 03/04/24 11:26 PHQ-9: PHQ-9 Score PHQ-9: Total score 0 03/04/24 11:41 Depression Screening Interpretation: Negative Thrive Assessment: Date of Thrive Assessment Date Thrive assessed 02/26/24 03/04/24 11:26 Currently or been in a relationship where the following occur: No concerns reported Const General: cooperative Nutritional Appearance: well nourished Orientation/consciousness: patient oriented x3 HENMT Head: Yes normal to inspection, Yes normocephalic and Yes atraumatic Ears: TM's normal bilaterally Eyes General: appearance normal, both eyes and all related structures Alignment and Position: alignment normal and position normal Neck Neck: Yes normal visual inspection and Yes no lymphadenopathy Thyroid: Thyroid normal Resp Effort & Inspection: normal respiratory effort Auscultation: clear to auscultation bilaterally Cardio Rate: regular rate Rhythm: regular rhythm Heart sounds: S1 normal heart sound present, S2 normal heart sound present and no murmurs GI Palpation (GI): Soft to palpation and nontender Auscultation: normal bowel sounds Male General Exam: Yes normal external exam Penis: normal penis Scrotum: scrotum normal, testes descended bilaterally and no inguinal hernias Testes: no testicular mass Skin Rashes: no rashes Neuro General: patient oriented x3, moves all extremities, no focal motor deficits and deep tendon reflexes 2+ bilaterally Romberg Test: Negative Psych Appearance: grossly normal Mental Status: mental status grossly normal Speech and movement: Normal speech and movement present Affect: normal affect Attitude: cooperative Thought process: Normal thought process present Thought content: Normal thought content present Insight: Good insight present (Psych) Judgement: Good judgement present (Psych) Assessment and Plan Assessment & Plan (1) Physical exam: Code(s): Z00.00 - Encounter for general adult medical examination without abnormal findings Plan: Labs ordered (2) Screening for prostate cancer: Code(s): Z12.5 - Encounter for screening for malignant neoplasm of prostate Plan: PSA ordered (3) Gout: Code(s): M10.9 - Gout, unspecified Plan: Uric acid ordered (4) Chronic low back pain: Code(s): M54.50 - Low back pain, unspecified; G89.29 - Other chronic pain Plan: referred to [facility] as requested (PT would most likely help) Plan The patient agreed to the use of a biomedical analytical scientist for this encounter. Scribed for SAMMY Blair-SANYA by Clarita Adrian biomedical analytical scientist, on 03/04/2024 at 11:35 EST. Orders: Orders Comprehensive Penelope. Panel Fast Today Z00.00 - Encounter for general adult medical examination without abnormal findings TSH reflex Free T4 Today Z00.00 - Encounter for general adult medical examination without abnormal findings UA CC w/rflx Micro + Cult Today Z00.00 - Encounter for general adult medical examination without abnormal findings Lipid Panel Today Z00.00 - Encounter for general adult medical examination without abnormal findings Prostate Specific Antigen Scr Today Z00.00 - Encounter for general adult medical examination without abnormal findings, Z12.5 - Encounter for screening for malignant neoplasm of prostate Uric Acid Today M10.9 - Gout, unspecified Complete Blood Count Auto Diff Today Z00.00 - Encounter for general adult medical examination without abnormal findings Referrals Sports Medicine Referral G89.29 - Other chronic pain, M54.50 - Low back pain, unspecified Coding Level of Care Code Est Pt Prev Care 40-64y(73360) Diagnoses Physical exam Z00.00 Screening for prostate cancer Z12.5 Gout M10.9 Chronic low back pain M54.50; G89.29 Additional Codes MAJO-7 Assessment Billing - MAJO-7 Assessment Tool: MAJO-7 Assessment 53830 ([id number])
[2024-03-04 11:27] VITALS: BP 124/80; PULSE 62; O2SAT 98
== END 2024-03-04 12:33 | disposition home or self-care (01) ==
PROVIDERS: PCP Nurse Practitioner Family; Visit Provider Nurse Practitioner Family
DX: Z00.00 Encounter for general adult medical examination without abnormal findings (principal); Z12.5 Encounter for screening for malignant neoplasm of prostate; M10.9 Gout, unspecified; M54.50 Low back pain, unspecified; G89.29 Other chronic pain
CPT/HCPCS: 99396

== ENCOUNTER 2024-03-04 11:55 | Outpatient (REF) | payer OTHER, SELFPAY ==
[2024-03-04 13:25] LABS: Basophils Percent Auto 1.1 % (0-2); Eosinophils Percent Auto 1.1 % (0-4); Hemoglobin 15.1 g/dl (14.0-18.0); Lymphocytes Absolute Auto 1.6 X10*3/uL (1.2-4.9); Lymphocytes Percent Auto 60.1 % (20-40); MANUAL DIFF FLAG SCAN; Mean Corpuscular HGB Conc 32.8 g/dl (31.0-36.0); Mean Corpuscular Hemoglobin 32.4 pg (27.0-33.0); Mean Corpuscular Volume 98.7 fL (80.0-98.0); Mean Platelet Volume 10.2 fL (9.4-12.4); Monocytes Absolute Auto 0.4 X10*3/uL (0.1-1.2); Monocytes Percent Auto 13.2 % (2-11); Neutrophils Absolute Auto 0.7 x10*3/uL (2.0-8.3); Neutrophils Percent Auto 24.5 % (45-73); Platelet Count 169 X10*3/uL (160-400); Red Blood Count 4.66 X10*6/uL (4.60-5.80); Red Cell Distribution Width 11.3 % (11.0-16.0); SCAN SMEAR FLAG 1; White Blood Count 2.7 X10*3/uL (4.8-10.8)
[2024-03-04 13:40] LABS: Appearance Urine Clear; Color Urine Yellow; Glucose Urine UA Negative (Negative); Leukocyte Esterase Urine Negative (Negative); Nitrite Urine Negative (Negative); PH 6.5 (5.0-9.0); Specific Gravity - Urine 1.025 (1.005-1.025); Urine Blood Negative (Negative); Urine Ketones Negative (Negative); Urine Protein Negative (Neg-Trace)
[2024-03-04 13:42] LABS: Alanine Aminotransferase 26 U/L (0-40); Albumin Level 4.2 g/dL (3.5-5.0); Alkaline Phosphatase 62 U/L (39-117); Anion Gap 13 (12-20); Aspartate Amino Transferase 21 U/L (5-37); Bilirubin Total 2.3 mg/dL (0.0-1.0); Blood Urea Nitrogen 15 mg/dL (9-16); Calcium 9.1 mg/dL (8.4-10.2); Carbon Dioxide 28 mmol/L (22-29); Chloride 106 mmol/L (96-108); Cholesterol 158 mg/dL (<200); Estimated Glomerular Filt Rate > 60; Glucose Fasting 91 mg/dL (60-99); HDL Cholesterol 46 mg/dL (>40); LDL Cholesterol Calculated 98 mg/dL (<100); Potassium 4.8 mmol/L (3.3-5.1); Sodium 142 mmol/L (135-145); Total Protein 7.1 g/dL (6.5-8.0); Triglycerides 74 mg/dL (<150)
[2024-03-04 13:44] LABS: SLIDE REVIEW VERIFIED
[2024-03-04 13:49] LABS: TSH reflex Free T4 1.07 uIU/mL (0.32-4.0)
[2024-03-04 13:50] LABS: Prostate Specific Antigen Scr 0.64 ng/mL (<0.05-4.0)
[2024-03-04 13:59] LABS: Uric Acid 7.1 mg/dL (3.4-7.0)
== END 2024-03-04 11:56 | disposition home or self-care (01) ==
LOC: HO.HMGCLDS 11:55
PROVIDERS: PCP Nurse Practitioner Family; Visit Provider Nurse Practitioner Family
DX: Z00.00 Encounter for general adult medical examination without abnormal findings (principal); M10.9 Gout, unspecified; Z12.5 Encounter for screening for malignant neoplasm of prostate
CPT/HCPCS: 36415; 80053; 80061; 81003; 84153; 84443; 84550; 85025

== ENCOUNTER 2024-03-12 08:15 | Outpatient (REF) | payer OTHER, SELFPAY ==
[2024-03-12 10:21] LABS: Immature Retic Fraction 6.6 % (2.3-13.4); Retic HGB Equivalent 35.6 pg (30.0-35.0); Reticulocyte Percent 1.3 % (0.5-1.8)
[2024-03-12 10:28] LABS: Bilirubin Direct 0.4 mg/dL (0.0-0.5); Lactate Dehydrogenase 216 U/L (118-273)
[2024-03-15 10:39] LABS: Haptoglobin 60 mg/dL (43-212)
== END 2024-03-12 08:16 | disposition home or self-care (01) ==
LOC: HO.HMGCLDS 08:15
PROVIDERS: PCP Nurse Practitioner Family; Visit Provider Nurse Practitioner Family
DX: R17 Unspecified jaundice (principal)
CPT/HCPCS: 36415; 82247; 82248; 83010; 83615; 85045

== ENCOUNTER → 2024-04-06 14:19 | Outpatient (BNV) | payer OTHER, SELFPAY | PROVIDERS: PCP Nurse Practitioner Family; Referring Provider Nurse Practitioner Family; Visit Provider Internal Medicine Medical Oncology | DX: D72.819 Decreased white blood cell count, unspecified (principal) | CPT/HCPCS: 99204; 99213 ==

== ENCOUNTER 2024-07-12 09:52 | Outpatient (AMB) | payer OTHER, SELFPAY ==
--- NOTE | 2024-07-12 11:07 | AM.OFFWIN_ITS ---
Intake Vital Signs 07/12/24 11:09 Weight 184 lb BP 122/80 Blood Pressure Location Rt brachial Pulse 100 Pulse Source Pulse Oximeter Temp 98.1 F Temp Source Oral Pulse Oximetry (%) 99 Intake Visit Reasons: EP rash Intake Note: Patient here for urine looking off which he noticed friday. Patient Tobacco Use Status: Never used Tobacco Allergies No Known Allergies [No Known Allergies*] Allergy (Verified 07/12/24 11:10) Do you need a note to return to daycare/school/sports/work: No HPI EP rash HPI Details This note is constructed using voice recognition software. While every effort has been made to ensure accuracy, supervisor matrix errors may have been included. The patient is a 53 year old male who presents to the clinic today with penile discharge. He reports he had intercourse with a partner whom he has intermitttently engaged with over the past year, after which he noticed a milky discharge within 45 minutes of unprotected intercourse. He had the same discharge the next day, but did not have it today. He denies frequency, urgency, burning on urination. He denies any penile lesions. He does also report that he has had a rash for the past several years, which is typically treated by a cream by his PCP, he does not recall the name of the cream that he was treated with, and requests a refill. [facility] Medical History (Updated 04/06/24 @ 15:24 by Bert Goldberg MD) Gout Chronic low back pain Prostate hypertrophy Dyslipidemia Leukopenia GERD (gastroesophageal reflux disease) HTN (hypertension) Chronic radicular pain of lower back Surgical History (Updated 04/06/24 @ 14:28 by Bert Goldberg MD) Hx of hemorrhoidectomy Status post cryoablation Hx of colonoscopy History of esophagogastroduodenoscopy (EGD) H/O left inguinal hernia repair Family History Father No problems noted. Mother No problems noted. Brother No problems noted. Sister No problems noted. Sister No problems noted. Son No problems noted. Daughter No problems noted. Social History (Updated 04/06/24 @ 14:27 by Mk Rodriguez) Household Members: None Housing: Apartment Are you a primary animal daycare provider to a significant other at home: No Do you presently have visiting nurse or other home services: No Alcohol intake: current Alcohol intake frequency: holidays/special occasions only Patient Tobacco Use Status: Never used Tobacco e-Cigarette/Vaping Use: Never Used Second Hand Smoke Exposure: No service: No Current occupational status: employed Current occupation: [employer] Current occupational exposures/hazards: No Cognitive needs: No Hearing needs: No Vision needs: No Review of Systems Const All systems reviewed & are unremarkable except as noted in HPI and below Physical Exam Vital Signs: Last Vital Signs Temp 98.1 F 07/12/24 11:09 Pulse 100 07/12/24 11:09 BP 122/80 07/12/24 11:09 Pulse Ox 99 07/12/24 11:09 Const General: cooperative, healthy appearing, comfortable, no acute distress and alert Orientation/consciousness: patient oriented x3 Limitations: no limitations Resp Effort & Inspection: normal respiratory effort and able to speak in complete sentences Other: Deferred General: Yes no CVA tenderness Back/Spine/Pelvis Back: no CVA tenderness Skin Other: Dry, flat hyperpigmented rash to bilateral groin without erythema or discharge, or lesions. General skin exam: elasticity normal and turgor normal Neuro General: patient oriented x3 Psych Appearance: grossly normal Mental Status: mental status grossly normal Speech and movement: Normal speech and movement present Affect: normal affect Assessment & Plan Assessment & Plan (1) Penile discharge: Code(s): R36.9 - Urethral discharge, unspecified Plan: Etiology unclear. In office urine dip negative for likely UTI. We also sent test for urine for STI. Advised condoms with all intercourse, and testing between new partners. Advised follow up with pcp with ongoing symptoms or worsening. Plan See above for full details and plan. Orders: Orders CT NG by PCR Today R36.9 - Urethral discharge, unspecified Coding Level of Care Code Est Pt Level 3 (65795) Diagnoses Penile discharge R36.9
[2024-07-12 11:09] VITALS: BP 122/80; PULSE 100; TEMP 36.7; O2SAT 99
== END 2024-07-12 11:58 | disposition home or self-care (01) ==
PROVIDERS: PCP Nurse Practitioner Family; Visit Provider Registered Nurse
DX: R36.9 Urethral discharge, unspecified (principal)

== ENCOUNTER 2024-07-12 09:52 | Outpatient (REF) | payer OTHER, SELFPAY ==
[2024-07-12 18:18] LABS: CT PCR NOT DETECTED (Not Detect.); NG PCR NOT DETECTED (Not Detect.)
== END 2024-07-12 09:53 | disposition home or self-care (01) ==
LOC: HO.LNP 09:52
PROVIDERS: PCP Nurse Practitioner Family; Visit Provider Registered Nurse
DX: Z11.3 Encounter for screening for infections with a predominantly sexual mode of transmission (principal); R36.9 Urethral discharge, unspecified
CPT/HCPCS: 87491; 87591; 99212

== ENCOUNTER 2024-08-25 11:29 | Outpatient (AMB) | payer OTHER, SELFPAY ==
[2024-08-25 11:35] VITALS: BP 128/80; PULSE 86; O2SAT 98; BMI 22.2
--- NOTE | 2024-08-25 11:35 | A.OFFPC_ITS ---
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 He reports tenderness and slight swelling on the medial aspect of the right foot, without erythema. He has a history of gout and experiences periodic attacks. He reports the current attack has been quite tender. Historic management has included the use of medications. The patient also has a history of elevated bilirubin, for which he has been under the care of a semiconductor processing group leader for several years. He denies abdominal pain, fevers, chills, nausea, vomiting, or diarrhea. However, he notes some recent constipation, which has improved with increased water and fiber intake. The patient also sees a supervisor press room for management of leukopenia and follows up with a urologist and a specialist for lower back pain with radicular symptoms. Health Maintenance - Colonoscopy is up to date. - Increased fiber and water intake to ma nage constipation. Social History - Regular follow-up with various special ists for ongoing health management. Review of Systems - Gastrointestinal: Denies abdominal benton n, nausea, vomiting, diarrhea. Reports improvement in constipation with dietary adjustments. - General: Denies fevers, chills. - Psychological: Denies anxiety and depr ession. Physical Exam General: Cooperative, healthy appearing, comfortable, no acute distress and well developed Orientation: Patient oriented x3 Limitations: No limitations Head: Normal to inspection Ears: Hearing grossly normal bilaterally Nose: Normal external nose present Face and sinus: Normal facial exam Eyes: Appearance normal, both eyes and all related structures Neck: Normal visual inspection and Yes full ROM Respiratory: Normal respiratory effort and able to speak in complete sentences. Clear to auscultation bilaterally Cardiovascular: Regular rate and rhythm. Normal S1 and S2 GI: Normal to inspection. Soft to palpation and nontender Skin: No rashes or lesions noted Neuro: Patient oriented x3 Extremities: Tenderness on the right foot, medial aspect, slight swelling, no erythema Results Plan - Continue prednisone for gout managemen t and plan to re-evaluate uric acid levels. - Additional laboratory tests will be co nducted to monitor bilirubin levels given his history of elevated bilirubin. - Encourage continued high fiber and shawna er intake to manage constipation. - Patient will continue regular follow-u ps with his supervisor press room for leukopenia and his semiconductor processing group leader for liver function monitoring. Patient was informed and verbally consented to the use of an ambient scribe for clinic note documentation during this visit. Discussion Notes During the visit, we discussed the management of the current gout attack, including the use of prednisone, and the plan to check uric acid levels. I clarified the importance of regular monitoring of his bilirubin levels due to its elevation history and encouraged him to maintain his current gastroenterology follow-ups. The management of constipation through dietary changes was acknowledged as beneficial, and his proactive approach to increasing fiber and water intake was commended. Follow-ups with his specialists were reinforced, particularly for his chronic conditions like leukopenia and liver issues. We discussed the continuation of his current management plan for his ongoing lower back pain and assured coordination with his providers. Patient Instructions - Take prescribed prednisone as directed for the acute gout attack. - Continue increasing fiber and water in take to prevent constipation. - Attend scheduled laboratory tests for monitoring bilirubin and uric acid levels. - Keep all appointments with specialists for comprehensive management of chronic conditions. - Report any new symptoms or concerns to our office promptly. COUNT INCLUDES THE [facility] Medical History Gout Chronic low back pain Prostate hypertrophy Dyslipidemia Leukopenia GERD (gastroesophageal reflux disease) HTN (hypertension) Chronic radicular pain of lower back Surgical History Hx of hemorrhoidectomy Status post cryoablation Hx of colonoscopy History of esophagogastroduodenoscopy (EGD) H/O left inguinal hernia repair Family History Father No problems noted. Mother No problems noted. Brother No problems noted. Sister No problems noted. Sister No problems noted. Son No problems noted. Daughter No problems noted. Social History Household Members: None Housing: Apartment Are you a primary career technical counselor to a significant other at home: No Do you presently have visiting nurse or other home services: No Alcohol intake: current Alcohol intake frequency: holidays/special occasions only Patient Tobacco Use Status: Never used Tobacco e-Cigarette/Vaping Use: Never Used Second Hand Smoke Exposure: No service: No Current occupational status: employed Current occupation: [employer] Current occupational exposures/hazards: No Cognitive needs: No Hearing needs: No Vision needs: No Questionnaire PHQ-9 Over the last 2 weeks, how often have you been bothered by any of the following problems? 1. Little interest or pleasure in doing things: not at all 2. Feeling down, depressed, or hopeless: not at all 3. Trouble falling or staying asleep, or sleeping too much: not at all 4. Feeling tired or having little energy: not at all 5. Poor appetite or overeating: not at all 6. Feeling bad about yourself - or that you are a failure or have let yourself or your family down: not at all 7. Trouble concentrating on things, such as reading the newspaper or watching television: not at all 8. Moving or speaking so slowly that other people could have noticed. Or the opposite - being so fidgety or restless that you have been moving around a lot more than usual: not at all 9. Thoughts that you would be better off or of hurting yourself in some way: not at all Total score: 0 Depression Screening Interpretation: Negative Depression Screening Done: Yes 24149 - PHQ-9 Billing: Yes Source: Developed by Drs. Darnell Gallegos, Leslie Frazier, Jermain Bryan and colleagues, with an educational kiran from [employer]. Thrive Questionnaire Date Thrive assessed: 08/25/24 I am a: Patient What is your living situation today?: I have a steady place to live Within the past 12 months, did the food you bought not last and you didn't have the money to get more?: Never true Within the past 12 months, did you worry whether your food would run out before you got money to buy more?: Never true Do you have trouble paying for medicines?: No Do you have trouble getting transportation to medical appointments?: No Do you have trouble paying your heating and electricity bill?: No Do you have trouble taking care of your child, family member or friend?: No Do you have trouble with day-to-day activities such as bathing, preparing meals, shopping, managing finances, etc.?: No Are you currently unemployed and looking for a job?: No Are you interested in more education?: No Please select the resources that you would like help with: None Currently or been in a relationship where the following occur: No concerns reported THRIVE Score: 0 AUDIT C Alcohol Use Questionnaire (AUDIT-C) 1. How often do you have a drink containing alcohol?: Monthly or less 2. How many drinks containing alcohol do you have on a typical day when you are drinking?: 1 or 2 3. How often do you have six or more drinks on one occasion?: Never Total Score: 1 Score Reviewed/Action Taken: Yes MAJO-7 AMB Questionnaire MAJO-7 Date MAJO - 7 assessed: 08/25/24 Feeling nervous, anxious, or on edge: 0 = Not at all Not being able to stop or control worryin = Not at all Worrying too much about different things: 0 = Not at all Trouble relaxin = Not at all Being so restless that it is hard to sit still: 0 = Not at all Becoming easily annoyed or irritable: 0 = Not at all Feeling afraid as if something awful might happen: 0 = Not at all Total MAJO-7 score (0-4 normal; 5-9 mild; 10-14 moderate; 15-21 severe): 0 Source: Developed by Drs. Darnell Gallegos, Leslie Frazier, Jermain Bryan and colleagues, with an educational kiran from [employer]. MAJO-7 Assessment Billing MAJO-7 Assessment Tool: MAJO-7 Assessment 01314 Physical exam (Primary Care) Vital Signs: Last Vital Signs Pulse 86 08/25/24 11:35 BP 128/80 08/25/24 11:35 Pulse Ox 98 08/25/24 11:35 BMI result Body Mass Index 22.2 Tobacco/Smoking Status: Tobacco use Status Tobacco use date assessed 08/25/24 08/25/24 11:36 Patient Tobacco Use Status Never used Tobacco 08/25/24 11:36 e-Cigarette/Vaping Use Never Used 08/25/24 11:36 PHQ-9: PHQ-9 Score PHQ-9: Total score 0 08/25/24 11:36 Depression Screening Interpretation: Negative Thrive Assessment: Date of Thrive Assessment Date Thrive assessed 08/25/24 08/25/24 11:36 Currently or been in a relationship where the following occur: No concerns reported Coding Level of Care Code Est Pt Prev Care 40-64y(40971) Diagnoses Physical exam Z00.00 Elevated bilirubin R17 Gout M10.9 Additional Codes MAJO-7 Assessment Billing - MAJO-7 Assessment Tool: MAJO-7 Assessment 90058 ([id number]) PHQ-9 - 66476 - PHQ-9 Billing: Yes ([id number]) Assessment & Plan Assessment & Plan (1) Physical exam: Code(s): Z00.00 - Encounter for general adult medical examination without abnormal findings Category: Medical (2) Elevated bilirubin: Code(s): R17 - Unspecified jaundice Category: Medical (3) Gout: Code(s): M10.9 - Gout, unspecified Category: Medical Plan . Orders: Orders Haptoglobin Today R17 - Unspecified jaundice Uric Acid Today M10.9 - Gout, unspecified Bilirubin Direct Today R17 - Unspecified jaundice Bilirubin Total Today R17 - Unspecified jaundice Reticulocyte Count Today R17 - Unspecified jaundice Lactate Dehydrogenase Today R17 - Unspecified jaundice Medications: New prednisone 50 mg PO DAILY 6 tabs 0RF
--- OUTSIDE RECORDS SUMMARY | 2024-08-25 13:37 | XMS_ITS ---
Author Name [facility] Organization Unknown History of Medication Use Medication Directions Dispensed Refills Start Date End Date Stat us ondansetron (ZOFRAN-ODT) 4 MG disintegrating tablet Take 1 tablet (4 mg total) by mouth 2 times daily (every 12 hours) as needed for nausea or vomiting. 01/28/2023 active diclofenac (CATAFLAM) 50 MG tablet TAKE 1 TABLET BY MOUTH 2 TIMES A DAY NEEDED FOR PAIN FOR 30 DAYS 01/28/2023 active predniSONE (DELTASONE) 10 MG tablet PLEASE SEE ATTACHED FOR DETAILED DIRECTIONS 01/28/2023 active azithromycin (ZITHROMAX) 250 MG tablet TAKE 2 TABLETS BY MOUTH TODAY, THEN TAKE 1 TABLET DAILY FOR 4 DAYS 01/28/2023 [address]orted [facility] Gas Relief Extra Strength 125 MG Cap TAKE 1 CAPSULE BY MOUTH 3-4 TIMES A DAY NEEDED FOR ABDOMINAL DISTENTION 01/28/2023 active PANTOprazole (PROTONIX) 40 MG EC tablet Take 1 tablet (40 mg total) by mouth every morning before breakfast. 01/28/2023 active ibuprofen (MOTRIN) 600 MG tablet TAKE 1 TABLET ORALLY EVERY 6 HOURS NEEDED FOR PAIN 01/28/2023 active hydrochlorothiazide (HYDRODIURIL) 25 MG tablet Take 1 tablet (25 mg total) by mouth daily. 01/28/2023 active azithromycin (ZITHROMAX) 1 g powder Take 1 packet (1 g total) by mouth once. 01/29/2023 active Problems Problem Status Onset Date Problem Type Date of Resoluti on Source Chronic back pain active 2023-01-25 [facility]Act [facility] Hypertension active 2023-01-25 [facility] Colitis active 2023-01-25 [facility]Act [facility]
== END 2024-08-25 12:16 | disposition home or self-care (01) ==
PROVIDERS: PCP Nurse Practitioner Family; Visit Provider Nurse Practitioner Family
DX: Z00.00 Encounter for general adult medical examination without abnormal findings (principal); R17 Unspecified jaundice; M10.9 Gout, unspecified

== ENCOUNTER → 2024-08-25 11:29 | Outpatient (BNVA) | payer OTHER, SELFPAY | PROVIDERS: PCP Nurse Practitioner Family; Visit Provider Nurse Practitioner Family | DX: Z00.00 Encounter for general adult medical examination without abnormal findings (principal); R17 Unspecified jaundice; M10.9 Gout, unspecified | CPT/HCPCS: 96127; 99396 ==

== ENCOUNTER → 2024-09-03 13:21 | Outpatient (BNVA) | payer OTHER, SELFPAY | PROVIDERS: PCP Nurse Practitioner Family; Visit Provider Physician Assistant | DX: I10 Essential (primary) hypertension (principal) | CPT/HCPCS: 99212 ==

== ENCOUNTER 2024-09-10 15:14 | Outpatient (REF) | payer OTHER, SELFPAY ==
--- OUTSIDE RECORDS SUMMARY | 2024-09-10 15:17 | XMS_ITS | Clinical Summary ---
Author Organization [facility] Address [address] [place] [address] Care Team Providers Care Gis Professor Name Role Phone Unavailable Primary Care Provider Unavailabl e Social History Tobacco Use Types Packs/Day Years Used Date Smoking Tobacco: Never Assessed Sex and Gender Information Value Date Recorded Sex Assigned at Not on file Gender Identity Not on file Sexual Orientation Not on file Plan of Treatment Health Maintenance Due Date Last Done Comments DTaP,Tdap,and Td Vaccines (1 - Tdap) 1988 Hepatitis B Vaccines (1 of 3 - 19+ 3-dose series) 1988 Zoster Vaccines (1 of 2) 2019 COVID-19 Vaccine (2023-2 5 season) 2024 Influenza Vaccine (#1) 2024 HIB Vaccines Aged Out No longer eligi ble based on patient's age to complete this topic HPV Vaccines Aged Out No longer eligi ble based on patient's age to complete this topic Hepatitis A Vaccines Aged Out No long er eligible based on patient's age to complete this topic IPV Vaccines Aged Out No longer eligi ble based on patient's age to complete this topic MMR Vaccines Aged Out No longer eligi ble based on patient's age to complete this topic Meningococcal ACWY Vaccine Aged Out N o longer eligible based on patient's age to complete this topic Pneumococcal Vaccine: Pediat rics (0 to 5 Years) and At-Risk Patients (6 to 64 Years) Aged Out No longer eligible b ased on patient's age to complete this topic RSV Immunization Patients Un kilo 20 months Aged Out No longer eligible b ased on patient's age to complete this topic Varicella Vaccines Aged Out No longer eligible based on patient's age to complete this topic
[2024-09-10 16:08] LABS: Immature Retic Fraction 5.3 % (2.3-13.4); Retic HGB Equivalent 36.2 pg (30.0-35.0); Reticulocyte Percent 1.1 % (0.5-1.8); Reticulocytes Absolute 0.057 X10*6/uL (0.026-0.095)
[2024-09-10 16:58] LABS: Haptoglobin 67 mg/dL (14-258)
[2024-09-10 17:32] LABS: Bilirubin Direct 0.3 mg/dL (0.0-0.5); Bilirubin Total 1.5 mg/dL (0.0-1.0); Lactate Dehydrogenase 165 U/L (118-273); Uric Acid 7.3 mg/dL (3.4-7.0)
== END 2024-09-10 15:15 | disposition home or self-care (01) ==
LOC: HO.HMGCLDS 15:14
PROVIDERS: PCP Nurse Practitioner Family; Visit Provider Nurse Practitioner Family
DX: R17 Unspecified jaundice (principal); M10.9 Gout, unspecified
CPT/HCPCS: 36415; 82247; 82248; 83010; 83615; 84550; 85045

== ENCOUNTER → 2024-09-15 09:05 | Outpatient (BNVA) | payer OTHER, SELFPAY | PROVIDERS: PCP Nurse Practitioner Family; Visit Provider Urology | DX: R35.1 Nocturia (principal); A63.0 Anogenital (venereal) warts | CPT/HCPCS: 51798; 99212 ==

== ENCOUNTER 2024-09-28 14:41 | Outpatient (AMB) | payer OTHER, SELFPAY ==
[2024-09-28 14:42] VITALS: BP 131/96; PULSE 92; BMI 22.3
--- NOTE | 2024-09-28 14:42 | MHC.OFFVIS ---
Vital Signs 09/28/24 14:42 Height 6 ft 4 in Weight 182 lb 15.739 oz BMI 22.3 BP 131/96 H Blood Pressure Location Lt brachial Position Sitting Pulse 92 Intake Visit Reasons: 8 month follow up Intake Note: Ambrose presents in the office as a 8 month follow up. CC: He states that he is not having concerns at this time. Denies any GI symptoms. Barrel Polisher Required: No Allergies No Known Allergies [No Known Allergies*] Allergy (Verified 09/28/24 14:45) HPI HPI 8 month follow up: Details: LAST VISIT: Constipation S/P repair of paraesophageal hernia GERD (gastroesophageal reflux disease) Status post hemorrhoidectomy Plan Continue current bowel management. Increase fluid intake and activity to promote better bowel motility. Continue current PPI dose. Continues sucralfate. Discussed with patient the importance of avoiding dietary triggers and late night snacking. Staying upright for minimum 3 hours after meals discussed with patient. Patient will avoid straining. May use Epsom salts for Sitz baths. Follow-up with his surgeon regarding any rectal pain or discomfort on as needed basis. Patient will follow-up in the office in 6 months, sooner if needed. He is agreeable to this plan and verbalizes understanding of instructions. He was given the opportunity to ask questions and all questions answered. TODAY'S VISIT Patient is here today for follow-up. Patient reports that he has been doing better now that he changed his diet. Patient also is taking Dulcolax daily. Reports that he moves his bowels, however occasionally he so be constipated. Patient denies to limit, hematochezia, unintentional weight loss or ribbon like stools. Patient denies any dyspepsia, dysphagia or odynophagia. He continues to take pantoprazole in the morning and occasionally take sucralfate at bedtime. Patient reports that he is feeling much better. [facility] Medical History Gout Chronic low back pain Prostate hypertrophy Dyslipidemia Leukopenia GERD (gastroesophageal reflux disease) HTN (hypertension) Chronic radicular pain of lower back Surgical History Hx of hemorrhoidectomy Status post cryoablation Hx of colonoscopy History of esophagogastroduodenoscopy (EGD) H/O left inguinal hernia repair Family History Father No problems noted. Mother No problems noted. Brother No problems noted. Sister No problems noted. Sister No problems noted. Son No problems noted. Daughter No problems noted. Social History Household Members: None Housing: Apartment Are you a primary urgent care physician assistant to a significant other at home: No Do you presently have visiting nurse or other home services: No Alcohol intake: current Alcohol intake frequency: holidays/special occasions only Patient Tobacco Use Status: Never used Tobacco e-Cigarette/Vaping Use: Never Used Second Hand Smoke Exposure: No service: No Current occupational status: employed Current occupation: [email or web address] Current occupational exposures/hazards: No Cognitive needs: No Hearing needs: No Vision needs: No Review of Systems Const Denies weight gain and Denies weight loss ENT Reports no additional complaints, Denies dysphagia and Denies odynophagia Card Reports no additional complaints Resp Reports no additional complaints GI Denies abdominal pain, Denies belching, Denies melena, Denies bloating, Denies change in bowel habits, Denies dysphagia, Denies excessive flatus, Denies dyspepsia, Denies heartburn, Denies diarrhea, Denies loose stools, Denies nausea, Denies odynophagia and Denies vomiting Reports no additional complaints Musc Reports no additional complaints Neuro Reports no additional complaints Psych Reports no additional complaints Endo Reports no additional complaints Physical Exam Vital Signs: Last Vital Signs Pulse 92 09/28/24 14:42 BP 131/96 H 09/28/24 14:42 BMI result Body Mass Index 22.3 Const General: no acute distress Orientation/consciousness: patient oriented x3 Resp Effort & Inspection: normal respiratory effort, able to speak in complete sentences, no tracheal deviation and symmetric chest movement Auscultation: clear to auscultation bilaterally Cardio Rate: regular rate GI Inspection: Yes normal to inspection and No distended Palpation (GI): Soft to palpation, not firm, nontender and No hepatosplenomegaly present Auscultation: normal bowel sounds General: Yes no CVA tenderness Back/Spine/Pelvis Back: no CVA tenderness Skin General skin exam: elasticity normal, turgor normal and dry skin Neuro General: patient oriented x3 Psych Appearance: grossly normal Mental Status: mental status grossly normal Assessment & Plan Assessment & Plan (1) Elevated bilirubin: Code(s): R17 - Unspecified jaundice Category: Medical (2) Constipation: Code(s): K59.00 - Constipation, unspecified Category: Medical Qualifiers: Constipation type: slow transit constipation Qualified Code(s): K59.01 - Slow transit constipation (3) S/P repair of paraesophageal hernia: Code(s): Z98.890 - Other specified postprocedural states; Z87.19 - Personal history of other diseases of the digestive system Category: Medical (4) GERD (gastroesophageal reflux disease): Code(s): K21.9 - Gastro-esophageal reflux disease without esophagitis Category: Medical Qualifiers: Esophagitis presence: with esophagitis Esophagitis bleeding: without hemorrhage Qualified Code(s): K21.00 - Gastro-esophageal reflux disease with esophagitis, without bleeding (5) Status post hemorrhoidectomy: Code(s): Z98.890 - Other specified postprocedural states; Z87.19 - Personal history of other diseases of the digestive system Category: Medical Plan Continue taking pantoprazole daily. Avoid dietary triggers in late night snacking. May take sucralfate as needed at bedtime. Discussed with patient that that might make him more constipated. Increase fluid intake and activity to promote better bowel motility. Increase Dulcolax to 2 tablets daily, increase Colace to 2 capsules daily. Follow-up in the office in 6 months. Patient will call us if he will have any GI concerning symptoms. He is agreeable to current plan of care and verbalizes understanding of instructions. He was given the opportunity to ask questions and all questions answered. Thank you for allowing me to participate in his care Medications: Changed From bisacodyl 5 mg PO DAILY To bisacodyl (Laxative (bisacodyl)) 10 mg (2 x 5 mg) PO DAILY PRN 60 tabs 3RF constipation From docusate sodium 100 mg PO BEDTIME 90 caps 2RF K59.00 - Constipation, unspecified To docusate sodium (Colace) 200 mg (2 x 100 mg) PO BEDTIME 180 caps 2RF K59.00 - Constipation, unspecified Coding Level of Care Code Est Pt Level 3 (81237) Diagnoses Elevated bilirubin R17 Slow transit constipation K59.01 Constipation type: slow transit constipation S/P repair of paraesophageal hernia Z98.890; Z87.19 Gastroesophageal reflux disease with esophagitis without hemorrhage K21.00 Esophagitis presence: with esophagitis Esophagitis bleeding: without hemorrhage Status post hemorrhoidectomy Z98.890; Z87.19 Time Spent (min) 25 Comment 15 minutes spent with patient and additional 10 minutes spent reviewing his record
--- OUTSIDE RECORDS SUMMARY | 2024-09-28 15:43 | XMS_ITS | Clinical Summary ---
Author Organization [facility] Address [address] [place] [address] Care Team Providers Care Server Support Technician Name Role Phone System, Provider Not In Primary Care Provider Un available Allergies No known active allergies Medications Medication Sig Dispensed Refills Start Date End Date Status hydrochlorothiazide (HYDRODIURIL) 25 MG tablet Take 1 tablet (25 mg total) by mouth daily. 2 11/17/2018 Active diclofenac (CATAFLAM) 50 MG tablet TAKE 1 TABLET BY MOUTH 2 TIMES A DAY NEEDED FOR PAIN FOR 30 DAYS 01/01/2023 Active predniSONE (DELTASONE) 10 MG tablet PLEASE SEE ATTACHED FOR DETAILED DIRECTIONS 01/03/2023 Active [facility] Gas Relief Extra Strength 125 MG Cap TAKE 1 CAPSULE BY MOUTH 3-4 TIMES A DAY NEEDED FOR ABDOMINAL DISTENTION 12/31/2022 Active ibuprofen (MOTRIN) 600 MG tablet TAKE 1 TABLET ORALLY EVERY 6 HOURS NEEDED FOR PAIN 11/09/2022 Active ondansetron (ZOFRAN-ODT) 4 MG disintegrating tablet Take 1 tablet (4 mg total) by mouth 2 times daily (every 12 hours) as needed for nausea or vomiting. 11/18/2022 Active PANTOprazole (PROTONIX) 40 MG EC tablet Take 1 tablet (40 mg total) by mouth every morning before breakfast. Active azithromycin (ZITHROMAX) 250 MG tabletIndications:Coli tis Take 1 tablet (250 mg total) by mouth daily. Take 2 tablets by mouth on day 1 followed by 1 tablet by mouth daily on days 2 through 5. 5 tablet 01/27/2023 Active Active Problems Problem Noted Date Diagnosed Date Hypertension 01/25/2023 Chronic back pain 01/25/2023 Resolved Problems Problem Noted Date Diagnosed Date Resolved Date Colitis 01/25/2023 10/22/2023 Social History Tobacco Use Types Packs/Day Years Used Date Smoking Tobacco: Never Smokeless Tobacco: Never Alcohol Use Standard Drinks/Week Comments Not Currently 0 (1 standard drink = 0.6 oz pur e alcohol) AUDIT-C Answer Date Recorded Q1: How often do you have a drink containing alcohol? Never 01/25/2023 Q2: How many drinks containi ng alcohol do you have on a typical day when you are drinking? Patient does not drink Q3: How often do you have si x or more drinks on one occasion? Never 01/25/2023 Sex and Gender Information Value Date Recorded Sex Assigned at Male 01/24/2023 9:42 PM EDT Gender Identity Male 01/24/2023 9:42 PM EDT Sexual Orientation Heterosexual (straight) 01/24 9:42 PM EDT Last Filed Vital Signs Vital Sign Reading Time Taken Comments Blood Pressure 99/55 01/26/2023 7:15 AM EDT Pulse 67 01/26/2023 7:15 AM EDT Temperature 36.5 ??C (97.7 ??F) 01/26/2023 7:15 AM ED T Respiratory Rate 18 01/25/2023 11:57 PM EDT Oxygen Saturation 99% 01/26/2023 7:15 AM EDT Inhaled Oxygen Concentration - - Weight 81.9 kg (180 lb 8.9 oz) 01/24/2023 8:53 P M EDT Height 193 cm (6' 4 ) 01/24/2023 8:53 PM EDT Body Mass Index 21.98 01/24/2023 8:53 PM EDT Plan of Treatment Health Maintenance Due Date Last Done Comments Hepatitis C Virus Screening 1969 HIV Screening 1982 DTaP/Tdap/Td Vaccines (1 - Tdap) 1988 Hepatitis B Vaccines (1 of 3 - 19+ 3-dose series) 1988 Colonoscopy 2014 Pneumococcal Vaccines 50+ (1 of 1 - PCV) 2019 Zoster (Shingles) Vaccine (1 of 2) 2019 Influenza Vaccine 03/11/2024 COVID-19 Vaccine ( - 2023-2 5 season) 2024 Chronic Controlled Substance User PDMP Review Discontinued 12/11/2018 Pneumococcal Vaccine: Pediat niko (0-5 Years) and At-Risk Patients (6 to 49 Years) Aged Out No longer eligible b ased on patient's age to complete this topic Advance Directives * Full Code (Latest Code Status on File) Date Activated Date Inactivated Comments 01/25/2023 2:09 AM Care Teams Server Support Technician Relationship Specialty Start Date End Date System, Provider Not In PCP - General 12/11/18
--- OUTSIDE RECORDS SUMMARY | 2024-09-28 15:43 | XMS_ITS | Clinical Summary ---
Author Organization [facility] Address [id number] [place] [id number] Care Team Providers Care Airline Pilot Flight Instructor Name Role Phone Unavailable Primary Care Provider Unavailabl e Social History Tobacco Use Types Packs/Day Years Used Date Smoking Tobacco: Never Assessed Sex and Gender Information Value Date Recorded Sex Assigned at Not on file Legal Sex Male 8:45 AM EST Gender Identity Not on file Sexual Orientation Not on file Plan of Treatment Health Maintenance Due Date Last Done Comments DTaP,Tdap,and Td Vaccines (1 - Tdap) 1988 Hepatitis B Vaccines (1 of 3 - 19+ 3-dose series) 1988 Pneumococcal Vaccine: 50+ Ye ars (1 of 1 - PCV) 2019 Zoster Vaccines (1 of 2) 2019 COVID-19 Vaccine ( - 2023-2 5 season) 2024 Influenza Vaccine (#1) 2024 [...] patient's age to complete this topic Meningococcal B Vacine Aged Out No lo nger eligible based on patient's age to complete [...]
== END 2024-09-28 15:15 | disposition home or self-care (01) ==
PROVIDERS: PCP Nurse Practitioner Family; Visit Provider Nurse Practitioner Family
DX: R17 Unspecified jaundice (principal); K59.01 Slow transit constipation; Z98.890 Other specified postprocedural states; Z87.19 Personal history of other diseases of the digestive system; K21.00 Gastro-esophageal reflux disease with esophagitis, without bleeding
CPT/HCPCS: 99213

== ENCOUNTER → 2024-09-28 14:41 | Outpatient (BNVA) | payer OTHER, SELFPAY | PROVIDERS: PCP Nurse Practitioner Family; Visit Provider Nurse Practitioner Family | DX: K21.9 Gastro-esophageal reflux disease without esophagitis (principal); K59.01 Slow transit constipation; R17 Unspecified jaundice; Z87.19 Personal history of other diseases of the digestive system; Z98.890 Other specified postprocedural states | CPT/HCPCS: 99212 ==

== ENCOUNTER 2024-10-12 13:11 | Outpatient (REF) | payer OTHER, SELFPAY ==
--- OUTSIDE RECORDS SUMMARY | 2024-10-12 16:30 | XMS_ITS | Clinical Summary ---
Author Organization [facility] Address [id number] [place] [id number] Care Team Providers Care Loader Malt House Name Role Phone Unavailable Primary Care Provider [...]
--- OUTSIDE RECORDS SUMMARY | 2024-10-12 16:30 | XMS_ITS | Clinical Summary ---
Author Organization [facility] Address [address] [place] [address] Care Team Providers Care Gold Cutter Name Role Phone System, Provider Not In [...] Inactivated Comments 01/25/2023 2:09 AM Care Teams Gold Cutter Relationship Specialty Start Date End Date System, Provider Not In PCP - General 12/11/18
[2024-10-12 16:57] LABS: Alanine Aminotransferase 18 U/L (0-40); Albumin Level 3.9 g/dL (3.5-5.0); Anion Gap 11 (12-20); Aspartate Amino Transferase 25 U/L (5-37); Bilirubin Total 1.4 mg/dL (0.0-1.0); Blood Urea Nitrogen 13 mg/dL (9-16); Calcium 9.3 mg/dL (8.4-10.2); Carbon Dioxide 28 mmol/L (22-29); Chloride 107 mmol/L (96-108); Estimated Glomerular Filt Rate > 60; Glucose Random 96 mg/dL (60-115); Magnesium 2.1 mg/dL (1.6-2.6); Potassium 4.6 mmol/L (3.3-5.1); Sodium 141 mmol/L (135-145); Total Protein 7.3 g/dL (6.5-8.0); Uric Acid 5.6 mg/dL (3.4-7.0)
[2024-10-12 16:58] LABS: Alkaline Phosphatase 52 U/L (39-117)
== END 2024-10-12 13:12 | disposition home or self-care (01) ==
LOC: HO.HMGCLDS 13:11
PROVIDERS: PCP Nurse Practitioner Family; Visit Provider Nurse Practitioner Family
DX: I10 Essential (primary) hypertension (principal); M10.9 Gout, unspecified
CPT/HCPCS: 36415; 80053; 83735; 84550

== ENCOUNTER → 2024-10-28 13:37 | Outpatient (BNVA) | payer SELFPAY | PROVIDERS: PCP Nurse Practitioner Family; Visit Provider Physician Assistant Medical | DX: Z02.79 Encounter for issue of other medical certificate (principal) ==

== ENCOUNTER 2024-11-11 10:31 | Outpatient (AMB) | payer OTHER, SELFPAY ==
--- NOTE | 2024-11-11 10:35 | HO.NEPHOV_ITS ---
Vital Signs 11/11/24 10:38 Height 6 ft 4 in Weight 187 lb 8 oz BMI 22.8 BP 130/100 H Blood Pressure Location Lt brachial Position Sitting Intake Visit Reasons: INP: Hypertension-Conf Edge Bander Hand Required: No Accompanied by: Self / Same As Patient Allergies No Known Allergies [No Known Allergies*] Allergy (Verified 11/11/24 10:38) HPI Comments Details: I had the pleasure of seeing Ambrose in consultation for hypertension. He is known to have hypertension for long time and had been on hydrochlorothiazide which initially has been keeping his blood pressure at goal. When his blood pressures are going up, dose of hydrochlorothiazide has been doubled but he developed gout needing uric acid lowering medications. After that his blood pressures start going up again and his his HCTZ was discontinued. He was started on irbesartan. If blood pressure continue to be high and amlodipine 2.5 mg was added. He denies any hypokalemia, hypercalcemia, obstructive sleep apnea, renal dysfunction or excessive sodium intake. He denied any coronary artery disease, congestive heart failure, carotid stenosis, peripheral arterial disease, renal artery stenosis or CVA. Claims to be compliant with medications. He denies any chest pain, palpitation, orthostatic symptoms, hematuria, renal calculi. He denies using any drugs or excessive nonsteroidal anti- inflammatories. His serum creatinine has been stable. [facility] Medical History Gout Chronic low back pain Prostate hypertrophy Dyslipidemia Leukopenia GERD (gastroesophageal reflux disease) HTN (hypertension) Chronic radicular pain of lower back Surgical History Hx of hemorrhoidectomy Status post cryoablation Hx of colonoscopy History of esophagogastroduodenoscopy (EGD) H/O left inguinal hernia repair Family History Father No problems noted. Mother No problems noted. Brother No problems noted. Sister No problems noted. Sister No problems noted. Son No problems noted. Daughter No problems noted. Social History Household Members: None Housing: Apartment Are you a primary customer care consultant to a significant other at home: No Do you presently have visiting nurse or other home services: No Alcohol intake: current Alcohol intake frequency: holidays/special occasions only Patient Tobacco Use Status: Never used Tobacco e-Cigarette/Vaping Use: Never Used Second Hand Smoke Exposure: No service: No Current occupational status: employed Current occupation: [employer] Current occupational exposures/hazards: No Cognitive needs: No Hearing needs: No Vision needs: No Review of Systems Const All systems reviewed & are unremarkable except as noted in HPI and below Physical Exam Vital Signs: Last Vital Signs BP 130/100 H 11/11/24 10:38 BMI result Body Mass Index 22.8 Const General: comfortable and no acute distress Orientation/consciousness: patient oriented x3 HEENT Head: Yes normocephalic Mouth: Normal oral and palatal mucosa present Eyes EOM: EOMs intact bilaterally Neck Neck: Yes supple Resp Auscultation: clear to auscultation bilaterally Cardio Jugular venous distension: no JVD Rate: regular rate GI Palpation (GI): Soft to palpation Auscultation: normal bowel sounds General: Yes no CVA tenderness Back/Spine/Pelvis Back: no CVA tenderness Skin General skin exam: no rashes or lesions noted Neuro General: patient oriented x3 and moves all extremities Extrem General: Yes no pedal edema Results Reviewed Nephrology Results: Sodium 141 mmol/L (135-145) 10/12/24 Potassium 4.6 mmol/L (3.3-5.1) 10/12/24 Chloride 107 mmol/L (96-108) 10/12/24 Carbon Dioxide 28 mmol/L (22-29) 10/12/24 BUN 13 mg/dL (9-16) 10/12/24 Creatinine 1.00 mg/dL (0.5-1.4) 10/12/24 Calcium 9.3 mg/dL (8.4-10.2) 10/12/24 Assessment & Plan Assessment & Plan (1) HTN (hypertension): Code(s): I10 - Essential (primary) hypertension Category: Medical Qualifiers: Hypertension type: primary hypertension Qualified Code(s): I10 - Essential (primary) hypertension Plan Ambrose has longstanding hypertension and had been on his HCTZ in the past which has been discontinued due to hyperuricemia. He is currently on spironolactone,Irbesartan as well as amlodipine. I discontinued his spironolactone and asked him to take it irbesartan in the morning. I increased his amlodipine to 10 mg which I asked him to take in the evening. I shall increase his Irbesartan to 150 in the morning, if needed, if his blood pressure control remains suboptimal provided his hemodynamics and serum potassium permit. He should remain on a low-sodium diet and keep up with good hydration. He has no coronary artery disease, proteinuria or renal dysfunction. 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 All these have been explained in detail. He is going to follow-up with me in a few weeks for continued care. Medications: Changed From amlodipine 2.5 mg PO DAILY 90 tabs 1RF To amlodipine 10 mg PO DAILY 90 days 90 tabs 3RF Coding Level of Care Code New Pt Level 4 (74086) Diagnoses Primary hypertension I10 Hypertension type: primary hypertension
[2024-11-11 10:38] VITALS: BP 130/100; BMI 22.8
--- OUTSIDE RECORDS SUMMARY | 2024-11-11 11:40 | XMS_ITS | Clinical Summary ---
Author Organization [facility] Address [address] [place] [address] Care Team Providers Care Brake Liner Name Role Phone System, Provider Not In [...] Inactivated Comments 01/25/2023 2:09 AM Care Teams Brake Liner Relationship Specialty Start Date End Date System, Provider Not In PCP - General 12/11/18
--- OUTSIDE RECORDS SUMMARY | 2024-11-11 11:40 | XMS_ITS | Clinical Summary ---
Author Organization [facility] Address [id number] [place] [id number] Care Team Providers Care Officer Lieutenant Name Role Phone Unavailable Primary Care Provider [...]
== END 2024-11-11 11:13 | disposition home or self-care (01) ==
LOC: HO.HKAS 10:32
PROVIDERS: PCP Nurse Practitioner Family; Referring Provider Nurse Practitioner Family; Visit Provider Internal Medicine Nephrology
DX: I10 Essential (primary) hypertension (principal)
CPT/HCPCS: 99204

== ENCOUNTER → 2024-11-11 10:31 | Outpatient (BNVA) | payer OTHER, SELFPAY | PROVIDERS: PCP Nurse Practitioner Family; Referring Provider Nurse Practitioner Family; Visit Provider Internal Medicine Nephrology | DX: I10 Essential (primary) hypertension (principal) | CPT/HCPCS: 99202 ==

== ENCOUNTER 2024-12-09 10:38 | Outpatient (AMB) | payer OTHER, SELFPAY ==
--- NOTE | 2024-12-09 10:47 | HO.NEPHOV_ITS ---
Vital Signs 12/09/24 10:48 Height 6 ft 4 in Weight 184 lb 2 oz BMI 22.4 BP 116/80 Blood Pressure Location Lt brachial Position Sitting Pulse 86 Pulse Source Pulse Oximeter Pulse Oximetry (%) 99 Oxygen Delivery Method Room Air Intake Visit Reasons: 1mon [id number] Event Organizer Required: No Accompanied by: Self / Same As Patient Allergies No Known Allergies [No Known Allergies*] Allergy (Verified 12/09/24 10:48) HPI Comments Details: I had the pleasure of seeing Ambrose in follow up for hypertension. He is known to have hypertension for long time and had been on hydrochlorothiazide which initially has been keeping his blood pressure at goal. When his blood pressures are going up, dose of hydrochlorothiazide has been doubled but he developed gout needing uric acid lowering medications. After that his blood pressures start going up again and his his HCTZ was discontinued. He was started on irbesartan. HIs blood pressure continued to be high and amlodipine 2.5 mg was added. He denies any hypokalemia, hypercalcemia, obstructive sleep apnea, renal dysfu nction or excessive sodium intake. He denied any coronary artery disease, congestive heart failure, carotid stenosis, peripheral arterial disease, renal artery stenosis or CVA. He claims to be compliant with medications. He denies any chest pain, palpitation, orthostatic symptoms, hematuria, renal calculi. He denies using any drugs or excessive nonsteroidal anti-inflammatories. His serum creatinine has been stable. [facility] Medical History Gout Chronic low back pain Prostate hypertrophy Dyslipidemia Leukopenia GERD (gastroesophageal reflux disease) HTN (hypertension) Chronic radicular pain of lower back Surgical History Hx of hemorrhoidectomy Status post cryoablation Hx of colonoscopy History of esophagogastroduodenoscopy (EGD) H/O left inguinal hernia repair Family History Father No problems noted. Mother No problems noted. Brother No problems noted. Sister No problems noted. Sister No problems noted. Son No problems noted. Daughter No problems noted. Social History Household Members: None Housing: Apartment Are you a primary director career services to a significant other at home: No Do you presently have visiting nurse or other home services: No Alcohol intake: current Alcohol intake frequency: holidays/special occasions o nly Patient Tobacco Use Status: Never used Tobacco e-Cigarette/Vaping Use: Never Used Second Hand Smoke Exposure: No service: No Current occupational status: employed Current occupation: [employer] Current occupational exposures/hazards: No Cognitive needs: No Hearing needs: No Vision needs: No Review of Systems Const All systems reviewed & are unremarkable except as noted in HPI and below Physical Exam Vital Signs: Last Vital Signs Pulse 86 12/09/24 10:48 BP 116/80 12/09/24 10:48 Pulse Ox 99 12/09/24 10:48 Oxygen Delivery Method Room Air 12/09/24 10:48 BMI result Body Mass Index 22.4 Const General: comfortable and no acute distress Orientation/consciousness: patient oriented x3 HEENT Head: Yes normocephalic Mouth: Normal oral and palatal mucosa present Eyes EOM: EOMs intact bilaterally Neck Neck: Yes supple Resp Auscultation: clear to auscultation bilaterally Cardio Jugular venous distension: no JVD Rate: regular rate GI Palpation (GI): Soft to palpation Auscultation: normal bowel sounds General: Yes no CVA tenderness Back/Spine/Pelvis Back: no CVA tenderness Skin General skin exam: no rashes or lesions noted Neuro General: patient oriented x3 and moves all extremities Extrem General: Yes no pedal edema Results Reviewed Nephrology Results: Sodium 141 mmol/L (135-145) 10/12/24 Potassium 4.6 mmol/L (3.3-5.1) 10/12/24 Chloride 107 mmol/L (96-108) 10/12/24 Carbon Dioxide 28 mmol/L (22-29) 10/12/24 BUN 13 mg/dL (9-16) 10/12/24 Creatinine 1.00 mg/dL (0.5-1.4) 10/12/24 Calcium 9.3 mg/dL (8.4-10.2) 10/12/24 Assessment & Plan Assessment & Plan (1) HTN (hypertension): Code(s): I10 - Essential (primary) hypertension Category: Medical Qualifiers: Hypertension type: primary hypertension Qualified Code(s): I10 - Essential (primary) hypertension Plan Ambrose has longstanding hypertension and had been on his HCTZ in the past which has been discontinued due to hyperuricemia. He is currently on Irbesartan as well as amlodipine. I shall increase his Irbesartan to 150 in the morning, if needed, if his blood pressure control remains suboptimal provided his hemodynamics and serum potassium permit. He should remain on a low-sodium diet and keep up with good hydration. He has no coronary artery disease, proteinuria or renal dysfunction. 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 All these have been explained in detail. Coding Level of Care Code Est Pt Level 4 (73034) Diagnoses Primary hypertension I10 Hypertension type: primary hypertension
[2024-12-09 10:48] VITALS: BP 116/80; PULSE 86; O2SAT 99; BMI 22.4
--- OUTSIDE RECORDS SUMMARY | 2024-12-09 12:11 | XMS_ITS | Clinical Summary ---
Author Organization [facility] Address [address] [place] [address] Care Team Providers Care Arranger Assembler Name Role Phone System, Provider Not In Primary Care Provider Un available Allergies No known active allergies Medications hydrochlorothiazid e (HYDRODIURIL) 25 MG tablet Take 1 tablet (25 mg total) by mouth daily. 2 9 Active diclofenac (CATAFLAM) 50 MG tablet TAKE 1 TABLET BY MOUTH 2 TIMES A DAY NEEDED FOR PAIN FOR 30 DAYS 3 Active predniSONE (DELTASONE) 10 MG tablet PLEASE SEE ATTACHED FOR DETAILED DIRECTIONS 3 Active [facility] Gas Relief Extra Strength 125 MG Cap TAKE 1 CAPSULE BY MOUTH 3-4 TIMES A DAY NEEDED FOR ABDOMINAL DISTENTION 3 Active ibuprofen (MOTRIN) 600 MG tablet TAKE 1 TABLET ORALLY EVERY 6 HOURS NEEDED FOR PAIN 3 Active ondansetron (ZOFRAN-ODT) 4 MG disintegrating tablet Take 1 tablet (4 mg total) by mouth 2 times daily (every 12 hours) as needed for nausea or vomiting. 3 Active PANTOprazole (PROTONIX) 40 MG EC tablet Take 1 tablet (40 mg total) by mouth every morning before breakfast. Active azithromycin (ZITHROMAX) 250 MG tabletIndications: Colitis Take 1 tablet (250 mg total) by mouth daily. Take 2 tablets by mouth on day 1 followed by 1 tablet by mouth daily on days 2 through 5. 5 tablet 3 Active Active Problems Problem Noted Date Diagnosed [...] Assigned at Male 01/24/2023 9:42 PM EDT Legal Sex Male 1:21 PM EDT Gender Identity Male 01/24/2023 9:42 [...] (1 of 3 - 19+ 3-dose series) 07/12 Colonoscopy 2014 Pneumococcal Vaccines 50+ (1 of 1 - PCV) 2019 Zoster (Shingles) Vaccine (1 of 2) 2019 COVID-19 Vaccine (1 - season) 2024 Influenza Vaccine 03/11/2025 Chronic Controlled Substance User PDMP Review Disconti nued 12/11/2018 [place] [facility] [place] Directives * Full Code (Latest Code Status on File) Date Activated Date Inactivated Comments 01/25/2023 2:09 AM Care Teams Arranger Assembler Relationship Specialty Start Date End Date System, Provider Not In PCP - General 12/11/18
--- OUTSIDE RECORDS SUMMARY | 2024-12-09 12:11 | XMS_ITS | Clinical Summary ---
Author Organization [facility] Address [address] [place] [phone] Care Team Providers Care Outbound Sales Consultant Name Role Phone Unavailable Primary Care Provider [...] - 2023-2 5 season) 2024 Influenza Vaccine (Season Ended) 2025 HIB Vaccines Aged Out No longer eligi [...] age to complete this topic Meningococcal B Vaccine Aged Out No l onger eligible based on patient's age to complete [...]
== END 2024-12-09 11:20 | disposition home or self-care (01) ==
LOC: HO.HKAS 10:39
PROVIDERS: PCP Nurse Practitioner Family; Visit Provider Internal Medicine Nephrology
DX: I10 Essential (primary) hypertension (principal)
CPT/HCPCS: 99214

== ENCOUNTER → 2024-12-09 10:38 | Outpatient (BNVA) | payer OTHER, SELFPAY | PROVIDERS: PCP Nurse Practitioner Family; Visit Provider Internal Medicine Nephrology | DX: I10 Essential (primary) hypertension (principal) | CPT/HCPCS: 99212 ==

== ENCOUNTER 2025-03-10 10:25 | Outpatient (AMB) | payer OTHER, SELFPAY ==
[2025-03-10 10:30] VITALS: BP 118/84; PULSE 112; RESP 16; TEMP 36.8; O2SAT 97; BMI 22.5
--- NOTE | 2025-03-10 10:30 | A.OFFPC_ITS ---
Vital Signs 03/10/25 10:30 Height 6 ft 4 in Weight 185 lb BMI 22.5 BP 118/84 Blood Pressure Location Lt brachial Position Sitting Respiration 16 Pulse 112 H Pulse Source Pulse Oximeter Temp 98.3 F Temp Source Oral Pulse Oximetry (%) 97 Oxygen Delivery Method Room Air Intake Visit Reasons: Annual PE Medical Photographer Required: No Accompanied by: Self / Same As Patient Allergies No Known Allergies (No Known Allergies*) Allergy (Verified 03/10/25 10:35) Medication List - Last Reconciled 03/10/25 by Asher Weiss, [facility]- allopurinol 100 mg PO DAILY amlodipine 10 mg PO DAILY 90 days bisacodyl (Laxative (bisacodyl)) 10 mg (2 x 5 mg) PO DAILY PRN colchicine 1.2mg x1, then .6mg by mouth 1 hr later 10 days cyclobenzaprine 10 mg PO BEDTIME PRN docusate sodium (Colace) 200 mg PO BEDTIME PRN [Donut seat cushion As directed] irbesartan 75 mg PO DAILY oxycodone-acetaminophen 5-325 mg (Percocet) 1 tab PO TID PRN 4 days pantoprazole 40 mg PO DAILY prednisone 50 mg PO DAILY 6 days sennosides (senna) 17.2 mg (2 x 8.6 mg) PO BEDTIME PRN Tobacco use date assessed: 03/10/25 Dental Screening Dental Screen Date: 03/10/25 Did you have a dental visit in the last 12 months?: Yes Did you have a dental problem in the last 6 months where you did not have access to dental care?: No Was dental information given to patient?: Patient has dentist HPI Annual PE HPI Details History of Present Illness The patient is a 54-year-old male presenting with severe lower back pain. He has a history of lumbar facet arthropathy and received bilateral L3 through L5 medial branch blocks in August. Recently, he experienced severe discomfort in his lower back while changing a light bulb, affecting the lower transverse back without radicular symptoms. He is in severe pain, wearing a back brace, and is walking very slowly, holding on to the calzada. No signs of cauda equina He follows up with [facility] for back pain and with nephrology for hypertension. His colon cancer screening is up to date, with the next due in 2031. following up with [facility] in 1 month. Following up with gastro in the near future. Health Maintenance - Colon cancer screening up to date, nex t due in 2031 Social History Review of Systems - Cardiovascular: Denies chest pain, den ies dyspnea - Gastrointestinal: Denies abdominal benton n, denies hematochezia, denies constipation, denies diarrhea - Genitourinary: Denies urinary symptoms - Psychiatric: Denies suicidal ideation, denies homicidal ideation Physical Exam General: Cooperative, healthy appearing, comfortable, no acute distress and well developed Orientation: Patient oriented x3 Limitations: No limitations Head: Normal to inspection Ears: Hearing grossly normal bilaterally Nose: Normal external nose present Face and sinus: Normal facial exam Eyes: Appearance normal, both eyes and all related structures Neck: Normal visual inspection and Yes full ROM Respiratory: Normal respiratory effort and able to speak in complete sentences. Clear to auscultation bilaterally Cardiovascular: Tachycardic, Normal S1 and S2 GI: Normal to inspection. Soft to palpation and nontender : Testicles without masses/lesions and no hernias appreciated Skin: No rashes or lesions noted Neuro: Patient oriented x3 Extremities: Normal to inspection, patient is wearing a back brace and moving slowly due to severe lower back pain. unable to heel and toe walk, unable to perform full back exam due to pain Results Plan The patient will undergo an EKG to assess the tachycardia, suspected to be due to severe back pain. A four-day course of Percocet is prescribed for pain management, with strict instructions on usage and safety precautions regarding driving. Discussion Notes I discussed with the patient the plan to perform an EKG to evaluate his tachycardia, which is likely related to his severe back pain. We also reviewed the prescription of Percocet for pain management, emphasizing the importance of adhering to the prescribed dosage and avoiding driving while on the medication. Patient Instructions - Take Percocet as prescribed, do not ex ceed the dosage. - Avoid driving while taking Percocet. [facility] Medical History Gout Chronic low back pain Prostate hypertrophy Dyslipidemia Leukopenia GERD (gastroesophageal reflux disease) HTN (hypertension) Chronic radicular pain of lower back Surgical History Hx of hemorrhoidectomy Status post cryoablation Hx of colonoscopy History of esophagogastroduodenoscopy (EGD) H/O left inguinal hernia repair Family History Father No problems noted. Mother No problems noted. Brother No problems noted. Sister No problems noted. Sister No problems noted. Son No problems noted. Daughter No problems noted. Social History Household Members: None Housing: Apartment Are you a primary hourly caregiver to a significant other at home: No Do you presently have visiting nurse or other home services: No Alcohol intake: current Alcohol intake frequency: holidays/special occasions only Patient Tobacco Use Status: Never used Tobacco e-Cigarette/Vaping Use: Never Used Second Hand Smoke Exposure: No service: No Current occupational status: employed Current occupation: [employer] Current occupational exposures/hazards: No Cognitive needs: No Hearing needs: No Vision needs: No Questionnaire PHQ-9 Over the last 2 weeks, how often have you been bothered by any of the following problems? 1. Little interest or pleasure in doing things: not at all 2. Feeling down, depressed, or hopeless: not at all 3. Trouble falling or staying asleep, or sleeping too much: not at all 4. Feeling tired or having little energy: not at all 5. Poor appetite or overeating: not at all 6. Feeling bad about yourself - or that you are a failure or have let yourself or your family down: not at all 7. Trouble concentrating on things, such as reading the newspaper or watching television: not at all 8. Moving or speaking so slowly that other people could have noticed. Or the opposite - being so fidgety or restless that you have been moving around a lot more than usual: not at all 9. Thoughts that you would be better off or of hurting yourself in some way: not at all Total score: 0 Depression Screening Interpretation: Negative Depression Screening Done: Yes 93223 - PHQ-9 Billing: Yes Source: Developed by Drs. Darnell Gallegos, Leslie Frazier, Jermain Bryan and colleagues, with an educational kiran from [employer]. Thrive Questionnaire Date Thrive assessed: 08/18/24 I am a: Patient What is your living situation today?: I have a steady place to live Within the past 12 months, did the food you bought not last and you didn't have the money to get more?: Never true Within the past 12 months, did you worry whether your food would run out before you got money to buy more?: Never true Do you have trouble paying for medicines?: No Do you have trouble getting transportation to medical appointments?: No Do you have trouble paying your heating and electricity bill?: No Do you have trouble taking care of your child, family member or friend?: No Do you have trouble with day-to-day activities such as bathing, preparing meals, shopping, managing finances, etc.?: No Are you currently unemployed and looking for a job?: No Are you interested in more education?: No Please select the resources that you would like help with: None Currently or been in a relationship where the following occur: No concerns reported THRIVE Score: 0 MAJO-7 AMB Questionnaire MAJO-7 Date MAJO - 7 assessed: 03/10/25 Feeling nervous, anxious, or on edge: 0 = Not at all Not being able to stop or control worryin = Not at all Worrying too much about different things: 0 = Not at all Trouble relaxin = Not at all Being so restless that it is hard to sit still: 0 = Not at all Becoming easily annoyed or irritable: 0 = Not at all Feeling afraid as if something awful might happen: 0 = Not at all Total MAJO-7 score (0-4 normal; 5-9 mild; 10-14 moderate; 15-21 severe): 0 Source: Developed by Drs. Darnell Gallegos, Leslie Frazier, Jermain Bryan and colleagues, with an educational kiran from [employer]. MAJO-7 Assessment Billing MAJO-7 Assessment Tool: MAJO-7 Assessment 23992 Physical exam (Primary Care) Vital Signs: Last Vital Signs Temp 98.3 F 03/10/25 10:30 Pulse 112 H 03/10/25 10:30 Resp 16 03/10/25 10:30 BP 118/84 03/10/25 10:30 Pulse Ox 97 03/10/25 10:30 Oxygen Delivery Method Room Air 07/31/25 10:30 BMI result Body Mass Index 22.5 Tobacco/Smoking Status: Tobacco use Status Tobacco use date assessed 03/10/25 03/10/25 10:32 Patient Tobacco Use Status Never used Tobacco 03/10/25 10:32 e-Cigarette/Vaping Use Never Used 03/10/25 10:32 PHQ-9: PHQ-9 Score PHQ-9: Total score 0 03/10/25 10:32 Depression Screening Interpretation: Negative Thrive Assessment: Date of Thrive Assessment Date Thrive assessed 08/18/24 03/10/25 10:32 Currently or been in a relationship where the following occur: No concerns reported Coding Level of Care Code Est Pt Level 3 (15775) Est Pt Prev Care 40-64y(74063) Diagnoses Encounter for routine adult physical exam with abnormal findings Z00. Screening for prostate cancer Z12.5 Tachycardia R00.0 Chronic low back pain M54.50; G89.29 Additional Codes MAJO-7 Assessment Billing - MAJO-7 Assessment Tool: MAJO-7 Assessment 77658 ([id number]) PHQ-9 - 11743 - PHQ-9 Billing: Yes ([id number]) Assessment & Plan Assessment & Plan (1) Encounter for routine adult physical exam with abnormal findings: Code(s): Z00. - Encounter for general adult medical examination with abnormal findings Category: Medical (2) Screening for prostate cancer: Code(s): Z12.5 - Encounter for screening for malignant neoplasm of prostate Category: Medical (3) Tachycardia: Code(s): R00.0 - Tachycardia, unspecified Category: Medical (4) Chronic low back pain: Code(s): M54.50 - Low back pain, unspecified; G89.29 - Other chronic pain Category: Medical Plan . Orders: Orders Complete Blood Count Auto Diff Today Z00.01 - Encounter for general adult medical examination with abnormal findings Comprehensive [place]. Panel Fast Today Z00.01 - Encounter for general adult medical examination with abnormal findings UA CC w/rflx Micro + Cult Today Z00.01 - Encounter for general adult medical examination with abnormal findings Prostate Specific Antigen Scr Today Z12.5 - Encounter for screening for malignant neoplasm of prostate AMB EKG-In Office Today R00.0 - Tachycardia, unspecified TSH reflex Free T4 Today Z00.01 - Encounter for general adult medical examination with abnormal findings Lipid Panel Today Z00.01 - Encounter for general adult medical examination with abnormal findings Medications: New prednisone 50 mg PO DAILY 6 tabs 0RF 6 days oxycodone-acetaminophen 5-325 mg (Percocet) Partial Fill upon patient request. 1 tab PO TID PRN 32 tabs 0RF pain 4 days
--- OUTSIDE RECORDS SUMMARY | 2025-03-10 11:09 | XMS_ITS | Clinical Summary ---
Author Organization [facility] Address [id number] [place] [id number] Care Team Providers Care Seam Closer Name Role Phone Unavailable Primary Care Provider [...] Vaccine ( - 2023-2 5 season) 2024 Depression Screening 08/11/2024 Influenza Vaccine (#1) 2025 HIB Vaccines Aged Out No longer [...]
--- OUTSIDE RECORDS SUMMARY | 2025-03-10 11:09 | XMS_ITS ---
Author Name [facility] Organization Unknown History of Medication Use Medication Directions Dispensed Refills Start Date End Date Stat us azithromycin (ZITHROMAX) 1 g powder Take 1 packet (1 g total) by mouth once. 01/27/2023 active azithromycin (ZITHROMAX) 250 MG tablet TAKE 2 TABLETS BY MOUTH TODAY, THEN TAKE 1 TABLET DAILY FOR 4 DAYS 01/26/2023 01/27/2023 [address] [facility] Gas Relief Extra Strength 125 MG Cap TAKE 1 CAPSULE BY MOUTH 3-4 TIMES A DAY NEEDED FOR ABDOMINAL DISTENTION 12/31/2022 suspended ibuprofen (MOTRIN) 600 MG tablet TAKE 1 TABLET ORALLY EVERY 6 HOURS NEEDED FOR PAIN 11/09/2022 active Problems Problem Status Onset Date Problem Type Date of Resoluti on Source Chronic back pain active 2023-01-25 ProblemAct [facility] Hypertension active 2023-01-25 ProblemAct [facility] Colitis active 2023-01-25 ProblemAct [facility] Encounters Encounter Type Encounter Reason Primary Diagnosis Location Date Inpatient Noninfective gastroenteritis and colitis, unspecified [facility] 01/24/2023 Care Team Organization Name Specialty Phone Email Start Date End Da te [facility],Provider Primary Care 01/25/2023 [facility] PROVIDER SYSTEM Primary Care 01/24/20232022
--- OUTSIDE RECORDS SUMMARY | 2025-03-10 11:09 | XMS_ITS | Clinical Summary ---
Author Organization [facility] Address [address] [place] [address] Care Team Providers Care Application Support Intern Name Role Phone System, Provider Not In [...] 67 01/26/2023 7:15 AM EDT Temperature 36.5 C (97.7 F) 01/26/2023 7:15 AM EDT Respiratory Rate 18 01/25/2023 11:57 PM EDT [...] Vaccine (1 of 2) 2019 COVID-19 Vaccine ( - season) 2024 Influenza Vaccine 03/11/2025 Chronic Controlled Substance User PDMP Review Disconti nued 12/11/2018 Insurance MEDICAID OUT OF STATE [facility] Advance Directives * Full Code (Latest Code Status on File) Date Activated Date Inactivated Comments 01/25/2023 2:09 AM Care Teams Application Support Intern Relationship Specialty Start Date End Date System, Provider Not In PCP - General 12/11/18
== END 2025-03-10 11:24 | disposition home or self-care (01) ==
LOC: HO.HMCC 10:26
PROVIDERS: PCP Nurse Practitioner Family; Visit Provider Nurse Practitioner Family
DX: Z00.01 Encounter for general adult medical examination with abnormal findings (principal); Z12.5 Encounter for screening for malignant neoplasm of prostate; R00.0 Tachycardia, unspecified; M54.50 Low back pain, unspecified; G89.29 Other chronic pain

== ENCOUNTER → 2025-03-10 10:25 | Outpatient (BNVA) | payer OTHER, SELFPAY | PROVIDERS: PCP Nurse Practitioner Family; Visit Provider Nurse Practitioner Family | DX: Z00.01 Encounter for general adult medical examination with abnormal findings (principal); R00.0 Tachycardia, unspecified; M54.50 Low back pain, unspecified; G89.29 Other chronic pain; Z13.31 Encounter for screening for depression; Z13.39 Encounter for screening examination for other mental health and behavioral disorders | CPT/HCPCS: 93005; 96127; 99212; 99396 ==

== ENCOUNTER 2025-03-23 09:12 | Outpatient (REF) | payer OTHER, SELFPAY ==
--- OUTSIDE RECORDS SUMMARY | 2025-03-23 09:36 | XMS_ITS | Clinical Summary ---
Author Organization [facility] Address [address] [place] [address] Care Team Providers Care Marketing Research Coordinator Name Role Phone Unavailable Primary Care Provider [...]
--- OUTSIDE RECORDS SUMMARY | 2025-03-23 09:36 | XMS_ITS | Clinical Summary ---
Author Organization [facility] Address [address] [place] [address] Care Team Providers Care Deposition Operator Name Role Phone System, Provider Not In [...] nued 12/11/2018 Insurance MEDICAID OUT OF STATE [facility] Advance Directives * Full Code (Latest Code Status on File) Date Activated Date Inactivated Comments 01/25/2023 2:09 AM Care Teams Deposition Operator Relationship Specialty Start Date End Date System, Provider Not In PCP - General 12/11/18
[2025-03-23 10:37] LABS: MANUAL DIFF FLAG NO
[2025-03-23 10:43] LABS: Hematocrit 43.1 % (42.0-52.0); Hemoglobin 13.8 g/dl (14.0-18.0); Imm Gran Abs Auto 0.02 X10*3/uL (0.00-0.03); Imm Gran Pct Auto 0.3 % (0.0-0.4); Lymphocytes Absolute Auto 2.1 X10*3/uL (1.2-4.9); Mean Corpuscular HGB Conc 32.0 g/dl (31.0-36.0); Mean Corpuscular Hemoglobin 31.7 pg (27.0-33.0); Mean Corpuscular Volume 98.9 fL (80.0-98.0); NRBC Abs Auto 0.000 X10*3/uL (0.0-0.012); NRBC Pct Auto 0.0 /100WBC (0.0-0.2); Platelet Count 252 X10*3/uL (160-400); Red Blood Count 4.36 X10*6/uL (4.60-5.80); White Blood Count 7.2 X10*3/uL (4.8-10.8)
[2025-03-23 11:21] LABS: Alanine Aminotransferase 18 U/L (0-40); Albumin Level 4.2 g/dL (3.5-5.0); Alkaline Phosphatase 56 U/L (39-117); Anion Gap 12 (12-20); Aspartate Amino Transferase 22 U/L (5-37); Blood Urea Nitrogen 16 mg/dL (9-16); Calcium 9.0 mg/dL (8.4-10.2); Carbon Dioxide 30 mmol/L (22-29); Chloride 105 mmol/L (96-108); Cholesterol 170 mg/dL (<200); Estimated Glomerular Filt Rate > 60; HDL Cholesterol 39 mg/dL (>40); Potassium 4.1 mmol/L (3.3-5.1); Sodium 143 mmol/L (135-145); Total Protein 7.2 g/dL (6.5-8.0); Triglycerides 113 mg/dL (<150)
[2025-03-23 11:23] LABS: Appearance Urine Clear; Glucose Urine UA Negative (Negative); PH 6.0 (5.0-9.0); Specific Gravity - Urine 1.020 (1.005-1.025); UMIC TRIGGER UACC YES
== END 2025-03-23 09:13 | disposition home or self-care (01) ==
LOC: HO.HMGCLDS 09:12
PROVIDERS: PCP Nurse Practitioner Family; Visit Provider Nurse Practitioner Family
DX: Z00.01 Encounter for general adult medical examination with abnormal findings (principal); Z12.5 Encounter for screening for malignant neoplasm of prostate
CPT/HCPCS: 36415; 80053; 80061; 81001; 84153; 84443; 85025

== ENCOUNTER 2025-03-29 13:40 | Outpatient (AMB) | payer OTHER, SELFPAY ==
--- NOTE | 2025-03-29 13:48 | A.OFFVIS_ITS ---
Vital Signs 03/29/25 13:49 Height 6 ft 4 in Weight 180 lb BMI 21.9 BP 102/70 Blood Pressure Location Rt brachial Position Sitting Pulse 94 Pulse Source Pulse Oximeter Pulse Oximetry (%) 100 Oxygen Delivery Method Room Air Intake Visit Reasons: 6 mo Intake Note: Est pt for mgmt of GERD + CIC. CC: Pt denies any GI sx or concerns at this time. Corporate Law Assistant Required: No Accompanied by: Self / Same As Patient Allergies No Known Allergies (No Known Allergies*) Allergy (Verified 03/10/25 10:35) HPI HPI 6 mo: Details: LAST VISIT Elevated bilirubin Constipation S/P repair of paraesophageal hernia GERD (gastroesophageal reflux disease) Status post hemorrhoidectomy Plan Continue taking pantoprazole daily. Avoid dietary triggers in late night snacking. May take sucralfate as needed at bedtime. Discussed with patient that that might make him more constipated. Increase fluid intake and activity to promote better bowel motility. Increase Dulcolax to 2 tablets daily, increase Colace to 2 capsules daily. Follow-up in the office in 6 months. Patient will call us if he will have any GI concerning symptoms. He is agreeable to current plan of care and verbalizes understanding of instructions. He was given the opportunity to ask questions and all questions answered. ? Thank you for allowing me to participate in his care Changed Changed From bisacodyl 5 mg PO DAILY Changed To bisacodyl (Laxative (bisacodyl)) 10 mg (2 x 5 mg) PO DAILY PRN 60 tabs 3RF constipation Changed From docusate sodium 100 mg PO BEDTIME 90 caps 2RF K59.00 Changed To docusate sodium (Colace) 200 mg (2 x 100 mg) PO BEDTIME 180 caps 2RF K59.00 * TODAY'S VISIT Patient is here today for follow-up visit. Patient reports that he is managing his bowels well. Takes Senokot in the morning and sometimes Dulcolax 2 tablets in the evening. Patient is trying to increase water intake. Patient denies any melena, hematochezia, unintentional weight loss or ribbon like stools. Patient reports acid reflux is suppressed with pantoprazole. Patient denies dyspepsia, dysphagia or odynophagia. Patient is trying to eat more and more often. Gout exacerbation few weeks ago. Patient reports also back spasms. He will be going to PT. Hoping to strengthen his abdominal muscles with exercises. No real significant weight loss, however patient understands that he needs to gain little bit more weight. We will talk today about high protein diet and discuss different options. [facility] Medical History Gout Chronic low back pain Prostate hypertrophy Dyslipidemia Leukopenia GERD (gastroesophageal reflux disease) HTN (hypertension) Chronic radicular pain of lower back Surgical History Hx of hemorrhoidectomy Status post cryoablation Hx of colonoscopy History of esophagogastroduodenoscopy (EGD) H/O left inguinal hernia repair Family History Father No problems noted. Mother No problems noted. Brother No problems noted. Sister No problems noted. Sister No problems noted. Son No problems noted. Daughter No problems noted. Social History Household Members: None Housing: Apartment Are you a primary manager critical care unit to a significant other at home: No Do you presently have visiting nurse or other home services: No Alcohol intake: current Alcohol intake frequency: holidays/special occasions only Patient Tobacco Use Status: Never used Tobacco e-Cigarette/Vaping Use: Never Used Second Hand Smoke Exposure: No service: No Current occupational status: employed Current occupation: [employer] Current occupational exposures/hazards: No Cognitive needs: No Hearing needs: No Vision needs: No Review of Systems Const Denies weight gain and Denies weight loss ENT Reports no additional complaints, Denies dysphagia and Denies odynophagia Card Reports no additional complaints Resp Reports no additional complaints GI Denies abdominal pain, Denies belching, Denies melena, Denies bloating, Denies change in bowel habits, Denies dysphagia, Denies excessive flatus, Denies dyspepsia, Denies heartburn, Denies diarrhea, Denies loose stools, Denies nausea, Denies odynophagia and Denies vomiting Reports no additional complaints Musc Reports no additional complaints Neuro Reports no additional complaints Psych Reports no additional complaints Endo Reports no additional complaints Physical Exam Vital Signs: Last Vital Signs Pulse 94 03/29/25 13:49 BP 102/70 03/29/25 13:49 Pulse Ox 100 03/29/25 13:49 Oxygen Delivery Method Room Air 03/29/25 13:49 BMI result Body Mass Index 21.9 Const General: no acute distress Orientation/consciousness: patient oriented x3 Resp Effort & Inspection: normal respiratory effort, able to speak in complete sentences, no tracheal deviation and symmetric chest movement Auscultation: clear to auscultation bilaterally Cardio Rate: regular rate GI Inspection: Yes normal to inspection and No distended Palpation (GI): Soft to palpation, not firm, nontender and No hepatosplenomegaly present Auscultation: normal bowel sounds General: Yes no CVA tenderness Back/Spine/Pelvis Back: no CVA tenderness Skin General skin exam: elasticity normal, turgor normal and dry skin Neuro General: patient oriented x3 Psych Appearance: grossly normal Mental Status: mental status grossly normal Assessment & Plan Assessment & Plan (1) GERD (gastroesophageal reflux disease): Code(s): K21.9 - Gastro-esophageal reflux disease without esophagitis Category: Medical Qualifiers: Esophagitis presence: with esophagitis Esophagitis bleeding: without hemorrhage Qualified Code(s): K21.00 - Gastro-esophageal reflux disease with esophagitis, without bleeding (2) S/P repair of paraesophageal hernia: Code(s): Z98.890 - Other specified postprocedural states; Z87.19 - Personal history of other diseases of the digestive system Category: Surgical (3) Constipation: Code(s): K59.00 - Constipation, unspecified Category: Medical Qualifiers: Constipation type: slow transit constipation Qualified Code(s): K59.01 - Slow transit constipation (4) Hemorrhoid: Code(s): K64.9 - Unspecified hemorrhoids Category: Medical Qualifiers: Hemorrhoid type: unspecified Qualified Code(s): K64.9 - Unspecified hemorrhoids Plan Patient will continue current bowel management. Increase fluid and fiber intake as well as activity to promote better bowel motility. Continue taking pantoprazole daily. Avoid dietary triggers and waited snacking. Staying upright for minimum 3 hours after meals discussed with patient. Patient will try high-protein diet. We have discussed this in the office today with him. List of food high in protein given to patient. I will see him in 6 months, sooner on as needed basis. Patient is agreeable to this plan and verbalizes understanding of instructions his was given the opportunity to ask questions and all questions answered. Thank you for allowing me to participate in his care Medications: Refilled pantoprazole 40 mg PO DAILY 90 tabs 2RF Coding Level of Care Code Est Pt Level 4 (41384) Complex EM visit Add On G2211 Diagnoses Gastroesophageal reflux disease with esophagitis without hemorrhage K21.00 Esophagitis presence: with esophagitis Esophagitis bleeding: without hemorrhage S/P repair of paraesophageal hernia Z98.890; Z87.19 Slow transit constipation K59.01 Constipation type: slow transit constipation Hemorrhoids, unspecified hemorrhoid type K64.9 Hemorrhoid type: unspecified Time Spent (min) 35 Comment 25 minutes spent with patient and additional 10 minutes spent reviewing his records
[2025-03-29 13:49] VITALS: BP 102/70; PULSE 94; O2SAT 100; BMI 21.9
--- OUTSIDE RECORDS SUMMARY | 2025-03-29 14:57 | XMS_ITS | Clinical Summary ---
Author Organization [facility] Address [id number] [place] [phone] Care Team Providers Care Vitreo Retinal Surgeon Name Role Phone Unavailable Primary Care Provider [...]
--- OUTSIDE RECORDS SUMMARY | 2025-03-29 14:57 | XMS_ITS | Clinical Summary ---
Author Organization [facility] Address [address] [place] [address] Care Team Providers Care Unindentured Apprentice Name Role Phone System, Provider Not In [...] nued 12/11/2018 Insurance MEDICAID OUT OF STATE [facility] Advance Directives * Full Code (Latest Code Status on File) Date Activated Date Inactivated Comments 01/25/2023 2:09 AM Care Teams Unindentured Apprentice Relationship Specialty Start Date End Date System, Provider Not In PCP - General 12/11/18
== END 2025-03-29 14:06 | disposition home or self-care (01) ==
LOC: HO.HGI 13:41
PROVIDERS: PCP Nurse Practitioner Family; Visit Provider Nurse Practitioner Family
DX: K21.00 Gastro-esophageal reflux disease with esophagitis, without bleeding (principal); Z98.890 Other specified postprocedural states; Z87.19 Personal history of other diseases of the digestive system; K59.01 Slow transit constipation; K64.9 Unspecified hemorrhoids
CPT/HCPCS: 99214

== ENCOUNTER → 2025-03-29 13:40 | Outpatient (BNVA) | payer OTHER, SELFPAY | PROVIDERS: PCP Nurse Practitioner Family; Visit Provider Nurse Practitioner Family | DX: K21.9 Gastro-esophageal reflux disease without esophagitis (principal); Z98.890 Other specified postprocedural states; Z87.19 Personal history of other diseases of the digestive system; K59.01 Slow transit constipation; K64.9 Unspecified hemorrhoids | CPT/HCPCS: 99212 ==

== ENCOUNTER 2025-03-31 10:41 | Outpatient (AMB) | payer OTHER, SELFPAY ==
--- NOTE | 2025-03-31 10:46 | HO.NEPHOV ---
Vital Signs 03/31/25 10:48 Height 6 ft 4 in Weight 183 lb 4 oz BMI 22.3 BP 120/90 H Blood Pressure Location Lt brachial Position Sitting Pulse 91 Pulse Source Pulse Oximeter Pulse Oximetry (%) 99 Oxygen Delivery Method Room Air Intake Visit Reasons: 3 mo follow up-Conf Customs Investigator Required: No Accompanied by: Self / Same As Patient Allergies No Known Allergies (No Known Allergies*) Allergy (Verified 03/31/25 10:48) HPI Comments Details: I had the pleasure of seeing Ambrose in follow up for hypertension. He is known to have hypertension for long time and had been on hydrochlorothiazide which initially has been keeping his blood pressure at goal. When his blood pressures are going up, dose of hydrochlorothiazide has been doubled but he developed gout needing uric acid lowering medications. After that his blood pressures start going up again and his his HCTZ was discontinued. He was started on irbesartan. HIs blood pressure continued to be high and amlodipine 2.5 mg was added. He denies any hypokalemia, hypercalcemia, obstructive sleep apnea, renal dysfunction or excessive sodium intake. He denied any coronary artery disease, congestive heart failure, carotid stenosis, peripheral arterial disease, renal artery stenosis or CVA. He claims to be compliant with medications. He denies any chest pain, palpitation, orthostatic symptoms, hematuria, renal calculi. He denies using any drugs or excessive nonsteroidal anti-inflammatories. His serum creatinine has been stable. [facility] Medical History Gout Chronic low back pain Prostate hypertrophy Dyslipidemia Leukopenia GERD (gastroesophageal reflux disease) HTN (hypertension) Chronic radicular pain of lower back Surgical History Hx of hemorrhoidectomy Status post cryoablation Hx of colonoscopy History of esophagogastroduodenoscopy (EGD) H/O left inguinal hernia repair Family History Father No problems noted. Mother No problems noted. Brother No problems noted. Sister No problems noted. Sister No problems noted. Son No problems noted. Daughter No problems noted. Social History Household Members: None Housing: Apartment Are you a primary manager critical care unit to a significant other at home: No Do you presently have visiting nurse or other home services: No Alcohol intake: current Alcohol intake frequency: holidays/special occasions only Patient Tobacco Use Status: Never used Tobacco e-Cigarette/Vaping Use: Never Used Second Hand Smoke Exposure: No service: No Current occupational status: employed Current occupation: [employer] Current occupational exposures/hazards: No Cognitive needs: No Hearing needs: No Vision needs: No Review of Systems Const All systems reviewed & are unremarkable except as noted in HPI and below Physical Exam Vital Signs: Last Vital Signs Pulse 91 03/31/25 10:48 BP 120/90 H 03/31/25 10:48 Pulse Ox 99 03/31/25 10:48 Oxygen Delivery Method Room Air 03/31/25 10:48 BMI result Body Mass Index 22.3 Const General: comfortable and no acute distress Orientation/consciousness: patient oriented x3 HEENT Head: Yes normocephalic Mouth: Normal oral and palatal mucosa present Eyes EOM: EOMs intact bilaterally Neck Neck: Yes supple Resp Auscultation: clear to auscultation bilaterally Cardio Jugular venous distension: no JVD Rate: regular rate GI Palpation (GI): Soft to palpation Auscultation: normal bowel sounds General: Yes no CVA tenderness Back/Spine/Pelvis Back: no CVA tenderness Skin General skin exam: no rashes or lesions noted Neuro General: patient oriented x3 and moves all extremities Extrem General: Yes no pedal edema Results Reviewed Nephrology Results: Hgb, (14.0-18.0) 13.8 g/dl L 03/23/25 WBC, (4.8-10.8) 7.2 X10*3/uL 03/23/25 Plt Count, (160-400) 252 X10*3/uL Δ 03/23/25 Sodium, (135-145) 143 mmol/L 03/23/25 Potassium, (3.3-5.1) 4.1 mmol/L 03/23/25 Chloride, (96-108) 105 mmol/L 03/23/25 Carbon Dioxide, (22-29) 30 mmol/L H 03/23/25 BUN, (9-16) 16 mg/dL 03/23/25 Creatinine, (0.5-1.4) 1.16 mg/dL 03/23/25 Calcium, (8.4-10.2) 9.0 mg/dL 03/23/25 Urine Protein, (Neg-Trace) Negative mg/dL 03/23/25 Renal US 09/01/23 Assessment & Plan Assessment & Plan (1) HTN (hypertension): Code(s): I10 - Essential (primary) hypertension Category: Medical Qualifiers: Hypertension type: primary hypertension Qualified Code(s): I10 - Essential (primary) hypertension (2) Gout: Code(s): M10.9 - Gout, unspecified Category: Medical Qualifiers: Gout site: foot Gout etiology: unspecified cause Chronicity: chronic Laterality: left Qualified Code(s): M1A.0720 - Idiopathic chronic gout, left ankle and foot, without tophus (tophi) Plan Ambrose has longstanding hypertension and had been on his HCTZ in the past which has been discontinued due to hyperuricemia. He is currently on Irbesartan as well as amlodipine. I shall increase his Irbesartan to 150 in the morning, if needed, if his blood pressure control remains suboptimal provided his hemodynamics and serum potassium permit. He should remain on a low-sodium diet and keep up with good hydration. He has no coronary artery disease, proteinuria or renal dysfunction. 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 I increased his Allopurinol to 200 mg daily. All these have been explained in detail. Orders: Orders Uric Acid 3 Months I10 - Essential (primary) hypertension, M1A.0720 - Idiopathic chronic gout, left ankle and foot, without tophus (tophi) Creatinine 3 Months I10 - Essential (primary) hypertension, M1A.0720 - Idiopathic chronic gout, left ankle and foot, without tophus (tophi) Blood Urea Nitrogen 3 Months I10 - Essential (primary) hypertension, M1A.0720 - Idiopathic chronic gout, left ankle and foot, without tophus (tophi) Electrolytes 3 Months I10 - Essential (primary) hypertension, M1A.0720 - Idiopathic chronic gout, left ankle and foot, without tophus (tophi) Medications: Changed From allopurinol 100 mg PO DAILY 90 tabs 1RF To allopurinol 200 mg PO DAILY 90 tabs 4RF Coding Level of Care Code Est Pt Level 4 (18807) Diagnoses Primary hypertension I10 Hypertension type: primary hypertension Chronic gout of left foot, unspecified cause M1A.0720 Gout site: foot Gout etiology: unspecified cause Chronicity: chronic Laterality: left
[2025-03-31 10:48] VITALS: BP 120/90; PULSE 91; O2SAT 99; BMI 22.3
--- OUTSIDE RECORDS SUMMARY | 2025-03-31 12:13 | XMS_ITS | Clinical Summary ---
Author Organization [facility] Address [address] [place] [address] Care Team Providers Care Automatic Cigar Wrapper Tender Name Role Phone System, Provider Not In [...] nued 12/11/2018 Insurance MEDICAID OUT OF [place] [facility] [place]ives * Full Code (Latest Code Status on File) Date Activated Date Inactivated Comments 01/25/2023 2:09 AM Care Teams Automatic Cigar Wrapper Tender Relationship Specialty Start Date End Date System, Provider Not In PCP - General 12/11/18
--- OUTSIDE RECORDS SUMMARY | 2025-03-31 12:13 | XMS_ITS | Clinical Summary ---
Author Organization [facility] Address [id number] [place] [id number] Care Team Providers Care Insurance Collector Name Role Phone Unavailable Primary Care Provider [...]
== END 2025-03-31 11:08 | disposition home or self-care (01) ==
LOC: HO.HKAS 10:42
PROVIDERS: PCP Nurse Practitioner Family; Visit Provider Internal Medicine Nephrology
DX: I10 Essential (primary) hypertension (principal); M1A.0720 Idiopathic chronic gout, left ankle and foot, without tophus (tophi)
CPT/HCPCS: 99214

== ENCOUNTER → 2025-03-31 10:41 | Outpatient (BNVA) | payer OTHER, SELFPAY | PROVIDERS: PCP Nurse Practitioner Family; Visit Provider Internal Medicine Nephrology | DX: I10 Essential (primary) hypertension (principal); M1A.0720 Idiopathic chronic gout, left ankle and foot, without tophus (tophi) | CPT/HCPCS: 99212 ==

== ENCOUNTER 2025-04-20 12:55 | Outpatient (REF) | payer OTHER, SELFPAY ==
[2025-04-20 13:19] LABS: MANUAL DIFF FLAG NO
[2025-04-20 13:59] LABS: Appearance Urine Clear; Glucose Urine UA Negative (Negative); PH 5.5 (5.0-9.0); Specific Gravity - Urine 1.025 (1.005-1.025)
[2025-04-20 14:05] LABS: Hematocrit 42.5 % (42.0-52.0); Hemoglobin 14.5 g/dl (14.0-18.0); Imm Gran Abs Auto 0.00 X10*3/uL (0.00-0.03); Imm Gran Pct Auto 0.0 % (0.0-0.4); Lymphocytes Absolute Auto 1.8 X10*3/uL (1.2-4.9); Mean Corpuscular HGB Conc 34.1 g/dl (31.0-36.0); Mean Corpuscular Hemoglobin 32.5 pg (27.0-33.0); Mean Corpuscular Volume 95.3 fL (80.0-98.0); NRBC Abs Auto 0.000 X10*3/uL (0.0-0.012); NRBC Pct Auto 0.0 /100WBC (0.0-0.2); Platelet Count 215 X10*3/uL (160-400); Red Blood Count 4.46 X10*6/uL (4.60-5.80); Reticulocytes Absolute 0.083 X10*6/uL (0.026-0.095); White Blood Count 3.5 X10*3/uL (4.8-10.8)
[2025-04-20 14:46] LABS: Ferritin 322 ng/mL (20-250); Iron 89 mcg/dL (45-160); Percent Iron Saturation 41 % (15-50); Total Iron Binding Capacity 218 mcg/dL (228-428); Unsaturated Iron Binding 129 ug/dL; Uric Acid 4.5 mg/dL (3.4-7.0)
[2025-04-20 15:01] LABS: Folate 13.7 ng/mL (> or = 4.0); Vitamin B12 990 pg/mL (200-900)
--- OUTSIDE RECORDS SUMMARY | 2025-04-20 15:55 | XMS_ITS | Clinical Summary ---
Author Organization [facility] Address [address] [place] [address] Care Team Providers Care Sign Builder Name Role Phone System, Provider Not In [...] Vaccine (1 of 2) 2019 Influenza Vaccine 03/11/2025 COVID-19 Vaccine (1 - 2024-25 season) 2025 Chronic Controlled Substance User PDMP Review Disconti nued 12/11/2018 Insurance MEDICAID OUT OF STATE [facility] [place] Advance Directives * Full Code (Latest Code Status on File) Date Activated Date Inactivated Comments 01/25/2023 2:09 AM Care Teams Sign Builder Relationship Specialty Start Date End Date System, Provider Not In PCP - General 12/11/18
--- OUTSIDE RECORDS SUMMARY | 2025-04-20 15:55 | XMS_ITS | Clinical Summary ---
Author Organization [facility] Address [address] [place] [address] Care Team Providers Care Rate Clerk Name Role Phone Unavailable Primary Care Provider [...] 2019 Zoster Vaccines (1 of 2) 2019 Depression Screening 08/11/2024 COVID-19 Vaccine ( - 2023-2 5 season) 2025 Influenza Vaccine (#1) 2025 HIB Vaccines Aged [...]
[2025-04-22 12:43] LABS: Hematocrit 44.3 % (38.5-50.0); Hemoglobin 14.7 g/dL (13.2-17.1); MCH 32.7 pg (27.0-33.0); MCV 98.4 fL (80.0-100.0); RBC 4.50 Million/uL (4.20-5.80); RDW 11.7 % (11.0-15.0)
== END 2025-04-20 12:56 | disposition home or self-care (01) ==
LOC: HO.LAB 12:55
PROVIDERS: PCP Nurse Practitioner Family; Visit Provider Nurse Practitioner Family
DX: Z00.01 Encounter for general adult medical examination with abnormal findings (principal); M10.9 Gout, unspecified; D64.9 Anemia, unspecified; R17 Unspecified jaundice
CPT/HCPCS: 36415; 81003; 82247; 82248; 82607; 82728; 82746; 83010; 83020; 83540; 83615; 84550; 85014; 85018; 85025; 85041; 85045

== ENCOUNTER 2025-07-05 14:23 | Outpatient (REF) | payer OTHER, SELFPAY ==
--- NOTE | ~2025-07-05 | US_ITS ---
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 Left kidney normal size and echotexture, 12.5 cm length. Mid kidney cortical mass measuring 12 x 11 x 10 mm reportedly previously biopsied and benign per the venetian blind cleaner and repairer's paperwork. No hydronephrosis of either kidney. Normal color Doppler IMPRESSION: 1. No hydronephrosis. There is a mass arising from the left mid kidney that appears relatively stable and was previously biopsied and benign per the venetian blind cleaner and repairer's worksheet. This document has been electronically signed by: Janell Saldana MD on 07/06/2025 10:27:58
--- OUTSIDE RECORDS SUMMARY | 2025-07-05 18:17 | XMS_ITS | Clinical Summary ---
Author Organization [facility] Address [address] [place] [address] Care Team Providers Care Emergency Detail Driver Name Role Phone System, Provider Not In [...] 50+ (1 of 1 - PCV) 2019 RSV Vaccine 50 years and old er and Patients (1 - Risk 50-74 years 1-dose series) 2019 Zoster (Shingles) Vaccine (1 of 2) 2019 Influenza Vaccine 03/11/2025 COVID-19 Vaccine ( season) 2025 Chronic Controlled Substance User PDMP Review Disconti nued 12/11/2018 Insurance MEDICAID OUT OF STATE [facility] [place] Advance Directives * Full Code (Latest Code Status on File) Date Activated Date Inactivated Comments 01/25/2023 2:09 AM Care Teams Emergency Detail Driver Relationship Specialty Start Date End Date System, Provider Not In PCP - General 12/11/18
--- OUTSIDE RECORDS SUMMARY | 2025-07-05 18:17 | XMS_ITS | Clinical Summary ---
Author Organization [facility] it Address [address] [place] [address] Care Team Providers Care Construction Site Manager Name Role Phone Unavailable Primary Care Provider [...] 2) 2019 Depression Screening 08/11/2024 COVID-19 Vaccine (1 - 2024-2 6 season) 2025 Influenza Vaccine (#1) 2025 RSV Immunization Adult Patie nts (1 - 1-dose 75+ series) 2044 HIB Vaccines Aged Out No longer eligi [...]
== END 2025-07-05 14:24 | disposition home or self-care (01) ==
LOC: HO.US 14:23
PROVIDERS: PCP Nurse Practitioner Family; Visit Provider Urology
DX: A63.0 Anogenital (venereal) warts (principal); N48.9 Disorder of penis, unspecified
CPT/HCPCS: 76775

== ENCOUNTER → 2025-07-05 14:26 | Outpatient (BNV) | payer OTHER, SELFPAY | PROVIDERS: PCP Nurse Practitioner Family; Visit Provider Radiology Diagnostic Radiology | DX: A63.0 Anogenital (venereal) warts (principal); N28.89 Other specified disorders of kidney and ureter | CPT/HCPCS: 76775 ==